=== PATIENT | female | born 1955 | race Caucasian/White ===

== ENCOUNTER → 2017-06-18 07:45 | Outpatient (CLI) | payer BC, SELFPAY ==
[2017-06-18 09:04] LABS: Absolute Lymphocyte Count 3.01 X10^3/ul (0.83-4.51); Absolute Neutrophil Count 3.2 X10^3/uL (2.0-7.7); Basophil# 0.04 X10^3/uL; Basophil% 0.6 % (0-1); Eosinophil# 0.12 X10^3/uL; Eosinophils% 1.7 % (0-5); Hematocrit 43.6 % (37-47); Hemoglobin 14.1 g/dl (12.0-15.0); Lymphocyte # 3.01 X10^3/ul (4.0); Lymphocyte % 42.9 % (19-41); Mean Corp Hgb Conc 32.3 g/gl (32-36); Mean Corpuscular Hgb 29.5 pg (27.0-32.0); Mean Corpuscular Volume 91.2 fL (81-99); Mean Platelet Vol. 11.5 fl (6.2-12.0); Monocyte# 0.64 X10^3/uL; Monocyte% 9.1 % (0-10); Neutrophil # 3.19 X10^3/uL (2.7-7.7); Neutrophil % 45.4 % (47-70); Platelet Count 193 K/mm3 (150-450); RBC Distribution Width SD 42.5 fl (35.1-43.9); Red Blood Count 4.78 M/mm3 (4.2-5.4)
[2017-06-18 09:05] LABS: POSITIVE COUNT NO; POSITIVE DIFFERENTIAL NO; POSITIVE MORPHOLOGY NO
[2017-06-18 09:29] LABS: ALB/GLOB Ratio 1.4 RATIO (0.9-2.4); AST(SGOT) 21 U/L (15-37); Alanine Aminotransfer ALT/SGPT 38 U/L (13-56); Albumin, Serum 3.7 g/dL (3.2-5.0); Alkaline Phosphatase 111 U/L (45-117); Anion Gap 8 (5-15); BUN 19 mg/dL (7-18); Calcium,Total 8.5 mg/dL (8.5-10.1); Chloride 110 mmol/L (98-107); Creatinine, Serum 0.76 mg/dL (0.55-1.02); EST Glomerular Filtration Rate 82 mL/min (>60); Est Glom Filt Rate - Afr Amer 100 mL/min (>60); Globulin 2.7 g/dL (2.2-4.2); Glucose 127 mg/dL (74-106); Potassium 4.2 mmol/L (3.5-5.1); Protein, Total 6.4 g/dL (6.4-8.2); Sodium Level 146 mmol/L (136-145)
== END ==
PROVIDERS: Family Provider Family Medicine; PCP Family Medicine; Visit Provider Internal Medicine Rheumatology
DX: M06.4 Inflammatory polyarthropathy (principal); M15.9 Polyosteoarthritis, unspecified; M70.62 Trochanteric bursitis, left hip; M79.7 Fibromyalgia; K76.0 Fatty (change of) liver, not elsewhere classified; Z79.899 Other long term (current) drug therapy
CPT/HCPCS: 36415; 80053; 85025

== ENCOUNTER → 2017-08-19 13:26 | Outpatient (CLI) | payer BC, SELFPAY ==
[2017-08-19 13:56] LABS: Hematocrit 43.8 % (37-47); Hemoglobin 14.4 g/dl (12.0-15.0); Mean Corp Hgb Conc 32.9 g/gl (32-36); Mean Corpuscular Volume 91.3 fL (81-99); Mean Platelet Vol. 11.1 fl (6.2-12.0); Platelet Count 222 K/mm3 (150-450); RBC Distribution Width CV 13.5 % (11.6-14.6); RBC Distribution Width SD 44.4 fl (35.1-43.9); White Blood Count 9.9 K/mm3 (4.4-11.0)
[2017-08-19 13:58] LABS: Scan Indicated on CBC? Y/N NO
[2017-08-19 14:42] LABS: ALB/GLOB Ratio 1.3 RATIO (0.9-2.4); AST(SGOT) 21 U/L (15-37); Alanine Aminotransfer ALT/SGPT 41 U/L (13-56); Albumin, Serum 3.9 g/dL (3.2-5.0); Alkaline Phosphatase 109 U/L (45-117); Anion Gap 6 (5-15); BUN 16 mg/dL (7-18); BUN/Creat Ratio 18.2 RATIO (10-20); Chloride 107 mmol/L (98-107); Creatinine, Serum 0.88 mg/dL (0.55-1.02); EST Glomerular Filtration Rate 70 mL/min (>60); Est Glom Filt Rate - Afr Amer 84 mL/min (>60); Globulin 3.1 g/dL (2.2-4.2); Glucose 97 mg/dL (74-106); Magnesium 2.1 mg/dL (1.6-2.6); Phosphorus 3.4 mg/dL (2.5-4.9); Potassium 4.3 mmol/L (3.5-5.1); Sodium Level 143 mmol/L (136-145)
== END ==
PROVIDERS: Family Provider Family Medicine; PCP Family Medicine; Visit Provider Nurse Practitioner Acute Care
DX: G62.9 Polyneuropathy, unspecified (principal); Z79.899 Other long term (current) drug therapy
CPT/HCPCS: 36415; 80053; 83735; 84100; 85027

== ENCOUNTER → 2017-09-22 14:08 | Outpatient (CLI) | payer BC, SELFPAY | PROVIDERS: Family Provider Family Medicine; PCP Family Medicine; Visit Provider Nurse Practitioner Acute Care | DX: G47.33 Obstructive sleep apnea (adult) (pediatric) (principal) | CPT/HCPCS: 98960; G0463 ==

== ENCOUNTER → 2017-09-28 12:38 | Outpatient (CLI) | payer BC, SELFPAY ==
--- NOTE | 2017-09-28 12:40 | RAD_ITS ---
STUDY: X-RAY - ABDOMEN/PELVIS REASON FOR EXAM: Female, 62 years old. Left kidney stone TECHNIQUE: Single AP view of the abdomen / pelvis. COMPARISON: November 17, 2016 FINDINGS: Normal visualized lung bases. Degenerative findings of the symphysis pubis. There is a moderate amount of colonic fecal material. There is no demonstrated free abdominal air. The visualized liver, spleen and kidneys are grossly normal in size and morphology. Normal soft tissue structures. There are diffuse degenerative changes of the visualized lumbar spine. RAD/Abdomen Single View IMPRESSION: Constipation. NO visualized renal calculi. Electronically Signed: Bebeto Bose MD at 17:17 EDT , Service support ,
--- NOTE | 2017-09-28 14:05 | CT_ITS ---
STUDY: CT ABDOMEN AND PELVIS WITHOUT CONTRAST REASON FOR EXAM: Female, 62 years old. Left flank pain. RADIATION DOSAGE (If Supplied By Facility): CTDIvol = ( 14.77 ) mGy, DLP = ( 783.64 ) mGycm TECHNIQUE: Transaxial images were obtained from the dome of the diaphragm to the symphysis pubis without oral contrast, and without intravenous contrast. Sagittal and coronal images were reconstructed. Individualized dose optimization techniques were used for this CT. COMPARISON: Comparison is made with prior study dated May 15, 2016 and November 10, 2014. FINDINGS: The visualized lung bases are unremarkable. The visualized portions of the heart are within normal limits. There is decreased attenuation of the liver consistent with steatosis. There is a 1.5 cm x 2.6 cm well-defined cystic structure in the midportion of the right lobe of the liver. This is unchanged. Normal gallbladder and extrahepatic biliary system. Normal spleen. Normal pancreas. Normal bilateral adrenal glands. Normal right kidney. Normal left kidney. There is a small hiatal hernia. Normal small intestine. There are multiple colonic diverticula consistent with diverticulosis. The appendix is visualized and appears normal. There is scattered atherosclerotic calcification of the abdominal aorta, without a demonstrated aneurysm. Normal inferior vena cava. Normal retroperitoneum. Normal urinary bladder. There is absence of the uterus consistent with a prior hysterectomy. Normal abdominal wall. There are diffuse degenerative changes of the visualized lumbar spine. CT/Abdomen/Pelvis without Cont IMPRESSION: Fatty infiltration of the liver. Stable hepatic cyst. Sigmoid diverticulosis. No evidence of obstructive uropathy. Electronically Signed: Moreno Lu MD at 15:32 EDT Tel [phone], Service support ,
== END ==
PROVIDERS: Family Provider Family Medicine; PCP Family Medicine; Visit Provider Urology
DX: N20.0 Calculus of kidney (principal); R10.9 Unspecified abdominal pain
CPT/HCPCS: 74018; 74176

== ENCOUNTER → 2017-10-19 15:48 | Outpatient (CLI) | payer BC, SELFPAY | PROVIDERS: Family Provider Family Medicine; PCP Family Medicine; Visit Provider Family Medicine | DX: Z00.00 Encounter for general adult medical examination without abnormal findings (principal) ==

== ENCOUNTER → 2017-11-13 09:40 | Outpatient (CLI) | payer BC, SELFPAY ==
[2017-11-13 11:35] LABS: AST(SGOT) 18 U/L (15-37); Alanine Aminotransfer ALT/SGPT 37 U/L (13-56); Cholesterol 125 mg/dL (200); High Density Lipoprotein 35 mg/dL; Triglycerides 227 mg/dL; Very Low Density Lipoprotein 45 mg/dL (5-40)
== END ==
PROVIDERS: Family Provider Family Medicine; PCP Family Medicine; Visit Provider Family Medicine
DX: E78.5 Hyperlipidemia, unspecified (principal)
CPT/HCPCS: 36415; 80061; 84450; 84460

== ENCOUNTER → 2017-12-16 13:55 | Outpatient (CLI) | payer BC, SELFPAY ==
[2017-12-16 15:40] LABS: Absolute Lymphocyte Count 3.13 X10^3/ul (0.83-4.51); Absolute Neutrophil Count 4.9 X10^3/uL (2.0-7.7); Basophil# 0.02 X10^3/uL; Basophil% 0.2 % (0-1); Eosinophil# 0.18 X10^3/uL; Hematocrit 43.5 % (37-47); Hemoglobin 14.6 g/dl (12.0-15.0); Lymphocyte # 3.13 X10^3/ul (4.0); Lymphocyte % 35.3 % (19-41); Mean Corp Hgb Conc 33.6 g/gl (32-36); Mean Corpuscular Hgb 30.9 pg (27.0-32.0); Mean Corpuscular Volume 92.2 fL (81-99); Mean Platelet Vol. 11.3 fl (6.2-12.0); Monocyte# 0.65 X10^3/uL; Monocyte% 7.3 % (0-10); Neutrophil # 4.86 X10^3/uL (2.7-7.7); Platelet Count 251 K/mm3 (150-450); RBC Distribution Width CV 13.1 % (11.6-14.6); RBC Distribution Width SD 43.2 fl (35.1-43.9); Red Blood Count 4.72 M/mm3 (4.2-5.4); White Blood Count 8.9 K/mm3 (4.4-11.0)
[2017-12-16 15:55] LABS: POSITIVE COUNT NO; POSITIVE DIFFERENTIAL NO; POSITIVE MORPHOLOGY NO
[2017-12-16 15:56] LABS: Albumin, Serum 3.5 g/dL (3.2-5.0); BUN 18 mg/dL (7-18); BUN/Creat Ratio 24.9 RATIO (10-20); Creatinine, Serum 0.72 mg/dL (0.55-1.02); EST Glomerular Filtration Rate 87 mL/min (>60); Est Glom Filt Rate - Afr Amer 105 mL/min (>60); Glucose 146 mg/dL (74-106); Protein, Total 6.6 g/dL (6.4-8.2)
[2017-12-16 15:57] LABS: ALB/GLOB Ratio 1.1 RATIO (0.9-2.4); AST(SGOT) 33 U/L (15-37); Alanine Aminotransfer ALT/SGPT 54 U/L (13-56); Alkaline Phosphatase 113 U/L (45-117); Anion Gap 7 (5-15); Calcium,Total 8.1 mg/dL (8.5-10.1); Chloride 106 mmol/L (98-107); Globulin 3.1 g/dL (2.2-4.2); Potassium 3.9 mmol/L (3.5-5.1); Sodium Level 142 mmol/L (136-145)
== END ==
PROVIDERS: Family Provider Family Medicine; PCP Family Medicine; Referring Provider Internal Medicine Rheumatology; Visit Provider Internal Medicine Rheumatology
DX: M06.4 Inflammatory polyarthropathy (principal); M70.62 Trochanteric bursitis, left hip; M15.9 Polyosteoarthritis, unspecified; K76.0 Fatty (change of) liver, not elsewhere classified; E78.5 Hyperlipidemia, unspecified; G43.809 Other migraine, not intractable, without status migrainosus; M79.7 Fibromyalgia; F32.89 Other specified depressive episodes; F41.8 Other specified anxiety disorders
CPT/HCPCS: 36415; 80053; 85025

== ENCOUNTER → 2018-01-07 16:17 | Outpatient (CLI) | payer BC, SELFPAY ==
--- NOTE | 2018-01-07 16:19 | BI_ITS ---
MAMMOGRAPHY - BILATERAL SCREENING REASON FOR EXAM: Female, 62 years old. Routine annual screening examination. PERTINENT HISTORY: Non-contributory. TECHNIQUE: Digital bilateral breast dejon (3D mammographic acquisition) in the CC and MLO projections. 2-D mediolateral oblique (MLO) and craniocaudad (CC) views of both breasts were obtained. CAD: Full Field Digital Mammography with Computer Added Detection was performed. COMPARISON: Comparison is made with prior study dated September 19, 2016. FINDINGS: Breast Composition: There are scattered areas of fibroglandular density. There are no dominant masses or suspicious calcifications. Stable small bilateral axillary lymph nodes. No other significant abnormalities are identified. There has been no significant change since the prior study. BI/SCREENING MAMM (CAD), BILAT IMPRESSION: Stable bilateral screening mammogram. Yearly follow-up mammogram recommended. (A) ASSESSMENT CATEGORY: BIRADS Category 2: Benign. A letter regarding these results will be sent to the patient by the facility within 30 days. Approximately 10% of breast cancers are not detected by mammography. A normal mammogram should not delay biopsy of a clinically suspicious abnormality. [id number] Electronically Signed: Moreno Lu MD at 8:03 EST Tel [phone], Service support ,
== END ==
PROVIDERS: Family Provider Family Medicine; PCP Family Medicine; Referring Provider Family Medicine; Visit Provider Family Medicine
DX: Z12.31 Encounter for screening mammogram for malignant neoplasm of breast (principal)
CPT/HCPCS: 77063; 77067

== ENCOUNTER → 2018-05-24 07:33 | Outpatient (CLI) | payer BC, SELFPAY ==
[2018-05-24 09:42] LABS: Absolute Lymphocyte Count 3.51 X10^3/ul (0.83-4.51); Absolute Neutrophil Count 3.7 X10^3/uL (2.0-7.7); Basophil# 0.02 X10^3/uL; Basophil% 0.2 % (0-1); Eosinophil# 0.12 X10^3/uL; Eosinophils% 1.5 % (0-5); Hematocrit 44.3 % (37-47); Hemoglobin 14.2 g/dl (12.0-15.0); Lymphocyte # 3.51 X10^3/ul (4.0); Lymphocyte % 43.7 % (19-41); Mean Corp Hgb Conc 32.1 g/gl (32-36); Mean Corpuscular Hgb 29.7 pg (27.0-32.0); Mean Corpuscular Volume 92.7 fL (81-99); Mean Platelet Vol. 11.2 fl (6.2-12.0); Monocyte# 0.68 X10^3/uL; Monocyte% 8.5 % (0-10); Platelet Count 240 K/mm3 (150-450); RBC Distribution Width CV 12.9 % (11.6-14.6); RBC Distribution Width SD 43.4 fl (35.1-43.9); Red Blood Count 4.78 M/mm3 (4.2-5.4)
[2018-05-24 09:43] LABS: POSITIVE COUNT NO; POSITIVE DIFFERENTIAL NO; POSITIVE MORPHOLOGY NO
[2018-05-24 10:01] LABS: ALB/GLOB Ratio 1.4 RATIO (0.9-2.4); AST(SGOT) 18 U/L (15-37); Alanine Aminotransfer ALT/SGPT 34 U/L (13-56); Albumin, Serum 3.7 g/dL (3.2-5.0); Alkaline Phosphatase 112 U/L (45-117); Anion Gap 7 (5-15); BUN 17 mg/dL (7-18); BUN/Creat Ratio 21.4 RATIO (10-20); Calcium,Total 8.8 mg/dL (8.5-10.1); Chloride 109 mmol/L (98-107); EST Glomerular Filtration Rate 78 mL/min (>60); Est Glom Filt Rate - Afr Amer 94 mL/min (>60); Globulin 2.7 g/dL (2.2-4.2); Glucose 126 mg/dL (74-106); Protein, Total 6.4 g/dL (6.4-8.2); Sodium Level 143 mmol/L (136-145)
== END ==
PROVIDERS: Family Provider Family Medicine; PCP Family Medicine; Referring Provider Internal Medicine Rheumatology; Visit Provider Internal Medicine Rheumatology
DX: M06.4 Inflammatory polyarthropathy (principal); M15.9 Polyosteoarthritis, unspecified; M70.62 Trochanteric bursitis, left hip; Y93.9 Activity, unspecified; K76.0 Fatty (change of) liver, not elsewhere classified; E78.5 Hyperlipidemia, unspecified; M79.7 Fibromyalgia; G43.809 Other migraine, not intractable, without status migrainosus; F32.89 Other specified depressive episodes; F41.8 Other specified anxiety disorders; Z79.899 Other long term (current) drug therapy
CPT/HCPCS: 36415; 80053; 85025

== ENCOUNTER → 2018-12-03 08:31 | Outpatient (CLI) | payer BC, SELFPAY ==
[2018-12-03 10:18] LABS: Absolute Lymphocyte Count 3.26 X10^3/uL (0.83-4.51); Absolute Neutrophil Count 4.2 X10^3/uL (2.0-7.7); Basophil# 0.05 X10^3/uL; Basophil% 0.6 % (0-1); Eosinophil# 0.12 X10^3/uL; Eosinophils% 1.5 % (0-5); Hematocrit 45.9 % (37-47); Hemoglobin 14.8 g/dL (12.0-15.0); Lymphocyte # 3.26 X10^3/ul (4.0); Lymphocyte % 39.6 % (19-41); Mean Corp Hgb Conc 32.2 g/dL (32-36); Mean Corpuscular Volume 92.9 fL (81-99); Mean Platelet Vol. 11.3 fl (6.2-12.0); Monocyte# 0.62 X10^3/uL; Monocyte% 7.5 % (0-10); NRBC Flagged by Analyzer 0 % (0-5); Neutrophil # 4.16 X10^3/uL (2.7-7.7); Neutrophil % 50.4 % (47-70); Platelet Count 241 K/mm3 (150-450); RBC Distribution Width CV 12.5 % (11.6-14.6); RBC Distribution Width SD 42.5 fl (35.1-43.9); Red Blood Count 4.94 M/mm3 (4.2-5.4); White Blood Count 8.2 K/mm3 (4.4-11.0)
[2018-12-03 10:45] LABS: ALB/GLOB Ratio 1.4 RATIO (0.9-2.4); AST(SGOT) 19 U/L (15-37); Alanine Aminotransfer ALT/SGPT 34 U/L (13-56); Albumin, Serum 3.9 g/dL (3.2-5.0); Alkaline Phosphatase 106 U/L (45-117); Anion Gap 7 (5-15); BUN 13 mg/dL (7-18); Calcium,Total 8.8 mg/dL (8.5-10.1); Chloride 108 mmol/L (98-107); Creatinine, Serum 0.87 mg/dL (0.55-1.02); EST Glomerular Filtration Rate 70 mL/min (>60); Est Glom Filt Rate - Afr Amer 85 mL/min (>60); Globulin 2.7 g/dL (2.2-4.2); Glucose 111 mg/dL (74-106); Protein, Total 6.6 g/dL (6.4-8.2); Sodium Level 145 mmol/L (136-145)
== END ==
PROVIDERS: Family Provider Family Medicine; PCP Family Medicine; Referring Provider Internal Medicine Rheumatology; Visit Provider Internal Medicine Rheumatology
DX: M06.4 Inflammatory polyarthropathy (principal); M79.7 Fibromyalgia; M15.9 Polyosteoarthritis, unspecified; M70.62 Trochanteric bursitis, left hip; K76.0 Fatty (change of) liver, not elsewhere classified; F32.89 Other specified depressive episodes; F41.8 Other specified anxiety disorders; E78.5 Hyperlipidemia, unspecified; G43.809 Other migraine, not intractable, without status migrainosus; Z79.899 Other long term (current) drug therapy
CPT/HCPCS: 36415; 80053; 85025

== ENCOUNTER → 2019-02-09 07:40 | Outpatient (CLI) | payer BC, SELFPAY ==
--- NOTE | 2019-02-09 07:43 | BI_ITS ---
MAMMOGRAPHY - BILATERAL SCREENING REASON FOR EXAM: Female, 63 years old. Routine annual screening examination. PERTINENT HISTORY: Non-contributory. TECHNIQUE: Digital bilateral breast ondina (3D mammographic acquisition) in the CC and MLO projections. 2-D mediolateral oblique (MLO) and craniocaudad (CC) views of both breasts were obtained. CAD: Full Field Digital Mammography with Computer Added Detection was performed. COMPARISON: Comparison is made with prior study dated January 07, 2018 and September 19, 2016. FINDINGS: Breast Composition: There are scattered areas of fibroglandular density. There are no dominant masses or suspicious calcifications. Stable asymmetry of breast tissue where more breast tissue is seen in the upper outer quadrant of the right breast as compared to the left side. This is unchanged. Stable small benign-appearing bilateral axillary lymph nodes. No other significant abnormalities are identified. There has been no significant change since the prior study. BI/SCREEN MAMM (CAD) W/ONDINA BILAT IMPRESSION: Stable bilateral screening mammogram. Yearly follow-up mammogram recommended. (A) ASSESSMENT CATEGORY: BIRADS Category 2: Benign. A letter regarding these results will be sent to the patient by the facility within 30 days. Approximately 10% of breast cancers are not detected by mammography. A normal mammogram should not delay biopsy of a clinically suspicious abnormality. [id number] Electronically Signed: Moreno Lu, at 10:22 EST , Service support ,
== END ==
PROVIDERS: Family Provider Family Medicine; PCP Family Medicine; Referring Provider Family Medicine; Visit Provider Family Medicine
DX: Z12.31 Encounter for screening mammogram for malignant neoplasm of breast (principal)
CPT/HCPCS: 77063; 77067

== ENCOUNTER → 2019-05-25 | Outpatient (CLI) | payer BC, SELFPAY ==
[2019-05-25 11:07] LABS: Absolute Lymphocyte Count 3.29 X10^3/uL (0.83-4.51); Absolute Neutrophil Count 4.4 X10^3/uL (2.0-7.7); Basophil# 0.05 X10^3/uL; Basophil% 0.6 % (0-1); Eosinophil# 0.11 X10^3/uL; Eosinophils% 1.3 % (0-5); Hematocrit 48.3 % (37-47); Hemoglobin 15.7 g/dL (12.0-15.0); Lymphocyte # 3.29 X10^3/ul (4.0); Lymphocyte % 38.5 % (19-41); Mean Corp Hgb Conc 32.5 g/dL (32-36); Mean Corpuscular Volume 92.2 fL (81-99); Monocyte# 0.73 X10^3/uL; Monocyte% 8.5 % (0-10); NRBC Flagged by Analyzer 0 % (0-5); Neutrophil # 4.35 X10^3/uL (2.7-7.7); Neutrophil % 50.9 % (47-70); Platelet Count 265 K/mm3 (150-450); RBC Distribution Width CV 12.5 % (11.6-14.6); RBC Distribution Width SD 42.3 fl (35.1-43.9); Red Blood Count 5.24 M/mm3 (4.2-5.4); White Blood Count 8.6 K/mm3 (4.4-11.0)
[2019-05-25 11:39] LABS: ALB/GLOB Ratio 1.3 RATIO (0.9-2.4); AST(SGOT) 19 U/L (15-37); Alanine Aminotransfer ALT/SGPT 41 U/L (13-56); Albumin, Serum 3.8 g/dL (3.2-5.0); Alkaline Phosphatase 107 U/L (45-117); Anion Gap 3 (5-15); BUN 16 mg/dL (7-18); BUN/Creat Ratio 20.8 RATIO (10-20); Calcium,Total 8.9 mg/dL (8.5-10.1); Chloride 109 mmol/L (98-107); Creatinine, Serum 0.77 mg/dL (0.55-1.02); EST Glomerular Filtration Rate 81 mL/min (>60); Est Glom Filt Rate - Afr Amer 98 mL/min (>60); Glucose 100 mg/dL (74-106); Potassium 4.8 mmol/L (3.5-5.1); Protein, Total 6.8 g/dL (6.4-8.2); Sodium Level 143 mmol/L (136-145)
== END | disposition home or self-care (01) ==
LOC: LABSPEC 10:57
PROVIDERS: PCP Family Medicine; Referring Provider Internal Medicine Rheumatology; Visit Provider Internal Medicine Rheumatology
DX: F32.89 Other specified depressive episodes (principal); E78.5 Hyperlipidemia, unspecified; G43.809 Other migraine, not intractable, without status migrainosus; F41.8 Other specified anxiety disorders
CPT/HCPCS: 80053; 85025

== ENCOUNTER → 2020-01-07 10:57 | Outpatient (CLI) | payer BC, SELFPAY ==
[2020-01-07 12:02] LABS: Absolute Lymphocyte Count 4.01 X10^3/uL (0.83-4.51); Absolute Neutrophil Count 5.1 X10^3/uL (2.0-7.7); Basophil# 0.05 X10^3/uL; Basophil% 0.5 % (0-1); Hematocrit 48.1 % (37-47); Hemoglobin 15.3 g/dL (12.0-15.0); Lymphocyte # 4.01 X10^3/ul (4.0); Lymphocyte % 39.7 % (19-41); Mean Corp Hgb Conc 31.8 g/dL (32-36); Mean Corpuscular Hgb 29.8 pg (27.0-32.0); Mean Corpuscular Volume 93.6 fL (81-99); Monocyte# 0.79 X10^3/uL; Monocyte% 7.8 % (0-10); NRBC Flagged by Analyzer 0 % (0-5); Neutrophil # 5.13 X10^3/uL (2.7-7.7); Neutrophil % 50.7 % (47-70); Platelet Count 272 K/mm3 (150-450); RBC Distribution Width CV 12.3 % (11.6-14.6); RBC Distribution Width SD 42.6 fl (35.1-43.9); Red Blood Count 5.14 M/mm3 (4.2-5.4); White Blood Count 10.1 K/mm3 (4.4-11.0)
[2020-01-07 12:24] LABS: ALB/GLOB Ratio 1.3 RATIO (0.9-2.4); AST(SGOT) 13 U/L (15-37); Alanine Aminotransfer ALT/SGPT 26 U/L (13-56); Albumin, Serum 3.7 g/dL (3.2-5.0); Alkaline Phosphatase 113 U/L (45-117); Anion Gap 5 (5-15); BUN 13 mg/dL (7-18); BUN/Creat Ratio 15.7 RATIO (10-20); Calcium,Total 8.6 mg/dL (8.5-10.1); Chloride 110 mmol/L (98-107); Creatinine, Serum 0.83 mg/dL (0.55-1.02); EST Glomerular Filtration Rate 74 mL/min (>60); Est Glom Filt Rate - Afr Amer 90 mL/min (>60); Globulin 2.9 g/dL (2.2-4.2); Glucose 94 mg/dL (74-106); Potassium 3.7 mmol/L (3.5-5.1); Protein, Total 6.6 g/dL (6.4-8.2); Sodium Level 143 mmol/L (136-145)
== END ==
PROVIDERS: PCP Family Medicine; Referring Provider Internal Medicine Rheumatology; Visit Provider Internal Medicine Rheumatology
DX: M06.4 Inflammatory polyarthropathy (principal); M79.7 Fibromyalgia; M15.9 Polyosteoarthritis, unspecified; M70.62 Trochanteric bursitis, left hip; K76.0 Fatty (change of) liver, not elsewhere classified; F32.89 Other specified depressive episodes; F41.9 Anxiety disorder, unspecified; E78.5 Hyperlipidemia, unspecified; G43.809 Other migraine, not intractable, without status migrainosus
CPT/HCPCS: 36415; 80053; 85025

== ENCOUNTER → 2020-01-30 15:24 | Outpatient (CLI) | payer BC, SELFPAY ==
[2020-01-30 18:28] LABS: Cholesterol 100 mg/dL (200); High Density Lipoprotein 42 mg/dL; T4 Total, Thyroxin 7.8 ug/dL (4.8-13.9); Thyroid Stim Hormone (TSH) 0.58 uIU/mL (0.358-3.74); Triglycerides 103 mg/dL; Very Low Density Lipoprotein 21 mg/dL (5-40)
== END ==
PROVIDERS: PCP Family Medicine; Referring Provider Family Medicine; Visit Provider Family Medicine
DX: E03.9 Hypothyroidism, unspecified (principal); E78.5 Hyperlipidemia, unspecified; R73.9 Hyperglycemia, unspecified
CPT/HCPCS: 36415; 80061; 84436; 84443

== ENCOUNTER → 2020-02-23 10:28 | Outpatient (CLI) | payer BC, SELFPAY ==
--- NOTE | 2020-02-23 10:30 | BI_ITS ---
MAMMOGRAPHY - BILATERAL SCREENING REASON FOR EXAM: Female, 64 years old. Routine annual screening examination. PERTINENT HISTORY: Non-contributory. TECHNIQUE: Digital bilateral breast ondina (3D mammographic acquisition) in the CC and MLO projections. 2-D mediolateral oblique (MLO) and craniocaudad (CC) views of both breasts were obtained. CAD: Full Field Digital Mammography with Computer Added Detection was performed. COMPARISON: Comparison is made with prior examination dated 02/09/2019 and 01/07/2018. FINDINGS: Breast Composition: There are scattered areas of fibroglandular density. There are no dominant masses or suspicious calcifications. Stable mild asymmetry of breast tissue where more breast tissue is seen in the upper outer quadrant of the right breast as compared to the left side. Stable small benign-appearing bilateral axillary lymph nodes. No other significant abnormalities are identified. BI/SCREEN MAMM (CAD) W/ONDINA BILAT IMPRESSION: Stable bilateral screening mammogram. Yearly follow-up mammogram recommended. (A) ASSESSMENT CATEGORY: BIRADS Category 2: Benign. A letter regarding these results will be sent to the patient by the facility within 30 days. Approximately 10% of breast cancers are not detected by mammography. A normal mammogram should not delay biopsy of a clinically suspicious abnormality. [id number] Electronically Signed: Moreno Lu, at 11:20 EST , Service support ,
--- NOTE | 2020-02-23 11:00 | BD_ITS ---
STUDY: DUAL ENERGY X-RAY ABSORPTIOMETRY / DXA REASON FOR EXAM: Female, 64 years old. Age of Partial Hysterectomy age 31. Pat is 205.9# and 67.25 and quot; a loss of .75 and quot; per pat. PRN inhaler for asthma. Takes a thyroid med. Takes a multi-vit. Patient states last year she had an HRT placed in her hip that she has replaced every 3 months of a cocktail of testosterone, estrogen and progesterone. Exercises moderately. TECHNIQUE: Bone Mineral Density (BMD) measurements of lumbar spine and bilateral hips were obtained. COMPARISON: None. FINDINGS: Lumbar Spine (L1-L4): g/cm2 (1.072) / T-score (-0.8) / Z-score (0.7) Findings are suggestive of normal bone density with a low fracture risk. Left Femur Total: g/cm2 (0.980) / T-score (-0.2) / Z-score (0.9) Left Femoral Neck: g/cm2 (0.899) / T-score (-1.0) / Z-score (0.4) Right Femur Total: g/cm2 (0.911) / T-score (-0.8) / Z-score (0.4) Right Femoral Neck: g/cm2 (0.822) / T-score (-1.7) / Z-score (-0.1) BD/Dexa Bone Density Study IMPRESSION: The patient is considered osteopenic as outlined below according to World Federico Organization (WHO) criteria with a moderate fracture risk. Reference Information: The T-score is the number of standard deviations above or below the standard which is normal for young adults at their peak bone mineral density. The World Health Organization (WHO) interprets the T-scores as follows: Above -1 Normal bone density Between -1 and -2.5 Osteopenia Equal to / or below -2.5 Osteoporosis As a practical clinical guideline, osteopenia may be graded as follows: Mild -1 through -1.5 Moderate -1.6 through -2.0 Severe -2.1 through -2.4 The Z-score is the number of standard deviations above or below age-matched controls. A Z-score of less than -1.5 would be considered abnormal. References: 1. NIH Osteoporosis and Related Bone Diseases www osteo.org 2. International Society for Clinical Densitometry www iscd.org 3. National Osteoporosis Foundation www nof.org Electronically Signed: Moreno Lu, at 12:35 EST , Service support ,
== END ==
PROVIDERS: PCP Family Medicine; Referring Provider Family Medicine; Visit Provider Family Medicine
DX: N95.9 Unspecified menopausal and perimenopausal disorder (principal); Z12.31 Encounter for screening mammogram for malignant neoplasm of breast
CPT/HCPCS: 77063; 77067; 77080

== ENCOUNTER → 2020-05-15 15:40 | Outpatient (CLI) | payer OTHER, SELFPAY ==
--- NOTE | 2020-05-15 16:17 | CT_ITS ---
STUDY: CT ABDOMEN AND PELVIS WITHOUT CONTRAST REASON FOR EXAM: Female, 65 years old. Unspecified abdominal pain. Hematuria. Question urinary calculi. Right flank pain. RADIATION DOSAGE (If Supplied By Facility): CTDIvol = ( 18.77 ) mGy, DLP = ( 886.25 ) mGycm TECHNIQUE: Transaxial images were obtained from the dome of the diaphragm to the symphysis pubis without oral contrast, and without intravenous contrast. Sagittal and coronal images were reconstructed. Individualized dose optimization techniques were used for this CT. COMPARISON: 09/28/2017. FINDINGS: The visualized lung bases are unremarkable. The visualized portions of the heart are within normal limits. Normal liver. Normal gallbladder and extrahepatic biliary system. Normal spleen. Normal pancreas. Normal bilateral adrenal glands. Normal right kidney. Normal right ureter. Normal left kidney. Normal left ureter. Normal visualized stomach. Normal small intestine. Scattered descending and sigmoid diverticuli without acute inflammatory change. The proximal colon is grossly normal There is non-visualization of the appendix. There is diffuse atherosclerotic calcification of the abdominal aorta, without a demonstrated aneurysm. Normal inferior vena cava. Normal retroperitoneum. Normal urinary bladder. Unremarkable vaginal cuff. There are phleboliths and pelvis without lymphadenopathy. No free air or free fluid is seen within the peritoneal cavity. Normal abdominal wall. There are diffuse degenerative changes of the visualized lumbar spine. CT/Abdomen/Pelvis without Cont IMPRESSION: 1. No visualized renal, ureteral or urinary bladder abnormality. 2. Nonvisualization of the cysts seen in the upper right liver on the previous study. 3. Sigmoid diverticulosis without acute inflammatory change. 4. Overall stable findings. Electronically Signed: Chon Ramirez DO at 16:53 EDT Tel [phone], Service support ,
== END ==
PROVIDERS: PCP Family Medicine; Referring Provider Nurse Practitioner Adult Health; Visit Provider Nurse Practitioner Adult Health
DX: R10.9 Unspecified abdominal pain (principal); R31.29 Other microscopic hematuria; Z87.442 Personal history of urinary calculi
CPT/HCPCS: 74176

== ENCOUNTER → 2020-06-25 11:24 | Outpatient (CLI) | payer OTHER, SELFPAY ==
[2020-06-25 12:06] LABS: Absolute Lymphocyte Count 3.25 X10^3/uL (0.83-4.51); Absolute Neutrophil Count 6.5 X10^3/uL (2.0-7.7); Basophil# 0.04 X10^3/uL; Basophil% 0.4 % (0-1); Eosinophil# 0.09 X10^3/uL; Eosinophils% 0.8 % (0-5); Hemoglobin 15.1 g/dL (12.0-15.0); Lymphocyte # 3.25 X10^3/ul (0.83-4.51); Lymphocyte % 30.1 % (19-41); Mean Corp Hgb Conc 32.1 g/dL (32-36); Mean Corpuscular Hgb 29.9 pg (27.0-32.0); Mean Corpuscular Volume 93.1 fL (81-99); Mean Platelet Vol. 11.6 fl (6.2-12.0); Monocyte# 0.91 X10^3/uL; Monocyte% 8.4 % (0-10); NRBC Flagged by Analyzer 0 % (0-5); Neutrophil # 6.46 X10^3/uL (2.7-7.7); Platelet Count 259 K/mm3 (150-450); RBC Distribution Width CV 12.3 % (11.6-14.6); RBC Distribution Width SD 42.5 fl (35.1-43.9); Red Blood Count 5.05 M/mm3 (4.2-5.4); White Blood Count 10.8 K/mm3 (4.4-11.0)
[2020-06-25 12:23] LABS: ALB/GLOB Ratio 1.3 RATIO (0.9-2.4); AST(SGOT) 14 U/L (15-37); Alanine Aminotransfer ALT/SGPT 25 U/L (13-56); Albumin, Serum 3.7 g/dL (3.2-5.0); Alkaline Phosphatase 91 U/L (45-117); Anion Gap 6 (5-15); BUN 12 mg/dL (7-18); BUN/Creat Ratio 14.4 RATIO (10-20); Calcium,Total 8.9 mg/dL (8.5-10.1); Chloride 108 mmol/L (98-107); Creatinine, Serum 0.83 mg/dL (0.55-1.02); EST Glomerular Filtration Rate 73 mL/min (>60); Est Glom Filt Rate - Afr Amer 89 mL/min (>60); Globulin 2.9 g/dL (2.2-4.2); Glucose 82 mg/dL (74-106); Potassium 4.2 mmol/L (3.5-5.1); Protein, Total 6.6 g/dL (6.4-8.2); Sodium Level 142 mmol/L (136-145)
== END ==
PROVIDERS: PCP Family Medicine; Referring Provider Internal Medicine Rheumatology; Visit Provider Internal Medicine Rheumatology
DX: M06.4 Inflammatory polyarthropathy (principal); M79.7 Fibromyalgia; M15.9 Polyosteoarthritis, unspecified; M70.62 Trochanteric bursitis, left hip; K76.0 Fatty (change of) liver, not elsewhere classified; F32.89 Other specified depressive episodes; F41.9 Anxiety disorder, unspecified; E78.5 Hyperlipidemia, unspecified; G43.809 Other migraine, not intractable, without status migrainosus
CPT/HCPCS: 80053; 85025

== ENCOUNTER → 2021-01-14 14:40 | Outpatient (CLI) | payer OTHER, SELFPAY ==
[2021-01-14 16:16] LABS: Absolute Lymphocyte Count 3.11 X10^3/uL (0.83-4.51); Absolute Neutrophil Count 5.6 X10^3/uL (2.0-7.7); Basophil# 0.04 X10^3/uL; Basophil% 0.4 % (0-1); Eosinophil# 0.13 X10^3/uL; Eosinophils% 1.3 % (0-5); Hematocrit 44.8 % (37-47); Hemoglobin 14.6 g/dL (12.0-15.0); Lymphocyte # 3.11 X10^3/ul (0.83-4.51); Mean Corp Hgb Conc 32.6 g/dL (32-36); Mean Corpuscular Hgb 30.3 pg (27.0-32.0); Mean Corpuscular Volume 92.9 fL (81-99); Mean Platelet Vol. 11.7 fl (6.2-12.0); Monocyte# 0.79 X10^3/uL; Monocyte% 8.1 % (0-10); NRBC Flagged by Analyzer 0 % (0-5); Neutrophil % 57.8 % (47-70); Platelet Count 242 K/mm3 (150-450); RBC Distribution Width CV 12.4 % (11.6-14.6); RBC Distribution Width SD 42.8 fl (35.1-43.9); Red Blood Count 4.82 M/mm3 (4.2-5.4); White Blood Count 9.7 K/mm3 (4.4-11.0)
[2021-01-14 17:05] LABS: ALB/GLOB Ratio 1.2 RATIO (0.9-2.4); AST(SGOT) 25 U/L (15-37); Alanine Aminotransfer ALT/SGPT 42 U/L (13-56); Albumin, Serum 3.6 g/dL (3.2-5.0); Alkaline Phosphatase 99 U/L (45-117); Anion Gap 5 (5-15); BUN 16 mg/dL (7-18); BUN/Creat Ratio 19.8 RATIO (10-20); Calcium,Total 8.8 mg/dL (8.5-10.1); Chloride 107 mmol/L (98-107); Creatinine, Serum 0.81 mg/dL (0.55-1.02); EST Glomerular Filtration Rate 76 mL/min (>60); Est Glom Filt Rate - Afr Amer 92 mL/min (>60); Globulin 3.1 g/dL (2.2-4.2); Glucose 85 mg/dL (74-106); Potassium 3.8 mmol/L (3.5-5.1); Protein, Total 6.7 g/dL (6.4-8.2); Sodium Level 139 mmol/L (136-145)
== END ==
PROVIDERS: PCP Family Medicine; Referring Provider Internal Medicine Rheumatology; Visit Provider Internal Medicine Rheumatology
DX: M06.4 Inflammatory polyarthropathy (principal); M79.7 Fibromyalgia; M15.9 Polyosteoarthritis, unspecified; M70.62 Trochanteric bursitis, left hip; K76.0 Fatty (change of) liver, not elsewhere classified; F32.89 Other specified depressive episodes; F41.8 Other specified anxiety disorders; E78.5 Hyperlipidemia, unspecified; G43.809 Other migraine, not intractable, without status migrainosus
CPT/HCPCS: 36415; 80053; 85025

== ENCOUNTER 2021-01-25 00:49 | Emergency (ER) | payer OTHER, SELFPAY ==
[2021-01-25 00:49] VITALS: BP 134/95; PULSE 90; RESP 18; TEMP 37.2; O2SAT 95; BMI 30.1
[2021-01-25 00:58] VITALS: O2SAT 95
--- NOTE | 2021-01-25 01:34 | EDS_ITS ---
HPI History of Present Illness Chief Complaint: Cough Informant: patient Onset/Context/Timing Onset: Weeks (1) Context: Gradual Onset Timing: Continuous Quality: Heavy Location: Head Worsened by: Movement Relieved by: Nothing Narrative Narrative: Patient presents with cough and congestion that has been getting worse over the past week. Patient states that she has been around several family members who recently tested positive for COVID-19. Patient states she did not take a COVID-19 test herself but assumes that she has COVID-19. Patient states she feels heavy in her head. Patient admits to some generalized aching. Patient states her pain is worse with movement. Patient also admits to some increasing fatigue. Patient admits to a cough but denies any sputum production. Patient also admits to sore throat and rhinorrhea. PFSH PFSH Medical History High cholesterol History of kidney stones Hypertension Home Medications atenolol 25 mg PO DAILY 04/15/13 [History Last Taken Unknown] atorvastatin 20 mg PO QHS 04/15/13 [History Last Taken Unknown] tramadol 50 mg PO Q6H PRN PRN 04/15/13 [History Last Taken Unknown] zolmitriptan [Zomig] 5 mg PO X1 04/15/13 [History Last Taken Unknown] ergocalciferol (vitamin D2) [Vitamin D2] 50,000 unit PO QWEEK 01/25/21 [History Last Taken Unknown] pregabalin [Lyrica] 100 mg PO TID 01/25/21 [History Last Taken Unknown] thyroid (pork) [[employer] Thyroid] 60 mg PO DAILY 01/25/21 [History Last Taken Unknown] Allergy/AdvReac Type Severity Reaction Status Date / Time codeine AdvReac Nausea/Vom/ Verified 01/25/21 00:49 Diarrhea Surgical History H/O: hysterectomy History of appendectomy History of carpal tunnel surgery Social History Smoking Status: Never smoker ROS ROS ED Constitutional Constitutional ED: Denies chills or fever(s) Eyes Eyes: Denies blurry vision or change in vision ENT ENT ED: Reports rhinorrhea and sore throat Cardiovascular Cardiovascular: Denies chest pain or palpitations Respiratory/Chest Respiratory/Chest: Reports cough; Denies dyspnea Gastrointestinal Gastrointestinal: Reports nausea and vomiting Genitourinary Genitourinary ED: Denies dysuria or hematuria Musculoskeletal Musculoskeletal: Reports back pain; Denies neck pain Integumentary Denies abscess or rash Neurologic Neurologic: Reports headache(s) and weakness Allergic/Immunologic Allergic/Immunologic ED: Denies mouth swelling or urticaria EXAM Physical Exam Const Vital Signs: 01/25/21 00:49 01/25/21 00:58 01/25/21 01:50 Temperature 98.9 F Temperature Source Axillary Pulse Rate 90 80 Respiratory Rate 18 18 Respiratory Effort Short of Breath Respiratory Depth Normal Respiratory Pattern Normal Blood Pressure 134/95 H 137/67 H Blood Pressure Mean 108 90 Pulse Ox 95 96 Oxygen Delivery Method Room Air Room Air Room Air Positive well nourished and well developed General Appearance ED: well developed HEENT Reports moist mucous membranes Neck supple and no JVD Resp normal respiratory effort Auscultation: rhonchi throughout Cardio regular rate, regular rhythm and no murmurs GI normal to inspection, nondistended, normoactive bowel sounds and non-tender Palpation: soft Extremity normal to inspection General Extremety ED: Negative for edema or tenderness General Extremity: Negative for edema Neuro oriented x3, CN's II-XII intact bilaterally and no sensory deficits noted Sensorium / Orientation: alert Motor Exam: strength 5/5 throughout Psych mental status grossly normal Skin no rashes or lesions noted MDM MDM MDM Narrative Medical decision making narrative: Patient was given 6 puffs of an albuterol inhaler here. CBC was within normal limits. Comprehensive metabolic profile was essentially within normal limits. Lactate was normal. COVID-19 rapid antigen was ordered. Patient refused this. Portable chest x-ray was obtained. There is 1 view. On my interpretation, there are bilateral lower lobe infiltrates consistent with COVID-19 pneumonia. Radiologist also interpreted the x-ray and agrees. Patient was advised of her findings. Since the patient refused her COVID-19 test, she does not meet criteria for monoclonal antibody therapy. Patient was instructed to use the inhaler as needed for cough. Patient was instructed to continue Tylenol and ibuprofen as needed for any aches or fevers. Patient was instructed to follow-up with her primary care physician in 5 to 7 days. Patient understood and was agreeable with the plan. All questions were answered. Lab Data Attestation: I reviewed the patient's lab results. Labs: Laboratory Results - last 24 hr 01/25/21 01/25/21 01/25/21 01:45 01:45 01:45 WBC 6.7 RBC 5.01 Hgb 15.2 H Hct 44.4 MCV 88.6 MCH 30.3 MCHC 34.2 RDW Std Deviation 41.2 RDW Coeff of Dylan 12.6 Plt Count 144 L MPV 11.1 Immature Gran % (Auto) 0.300 Neut % (Auto) 68.5 Lymph % (Auto) 22.6 Sabine % (Auto) 8.2 Eos % (Auto) 0.1 Baso % (Auto) 0.3 Absolute Neuts (auto) 4.6 Absolute Lymphs (auto) 1.52 Nucleated RBC % 0 Sodium 135 L Potassium 4.0 Chloride 104 Carbon Dioxide 23.0 Anion Gap 8 BUN 18 Creatinine 1.00 Estim Creat Clear Calc 57.33 Est GFR (MDRD) Af Amer 72 Est GFR (MDRD) Non-Af 59 L BUN/Creatinine Ratio 18.0 Glucose 109 H Lactic Acid 1.2 Calcium 8.5 Total Bilirubin 0.40 AST 41 H ALT 36 Alkaline Phosphatase 77 Total Protein 6.8 Albumin 3.2 Globulin 3.6 Albumin/Globulin Ratio 0.9 Radiography Chest X-Ray - ED: 1 View, Read by ED Physician, Read by Radiologist, Right Infiltrate and Left Infiltrate Diagnostic Testing: Clinical Impression(s) from Imaging Studies Chest X-Ray 01/25/21 01:55 IMPRESSION: Ill-defined subpleural groundglass opacities are seen more prominent in the lung bases , may represent atypical pneumonia or viral pneumonia (COVID-19 ?). Electronically Signed: Martha Arzola MD at 3:05 EST Tel , Service support , Discharge Plan Triage Chief Complaint: Cough ED Provider: Roger Villa Dx/Rx/DC Orders Clinical Impression: Pneumonia due to COVID-19 virus Instructions: Coronavirus Disease 2019 (COVID-19): Caring for Yourself or Others Prescriptions: No Action atorvastatin 20 MG tablet 20 mg PO QHS RF: 0 atenolol 25 MG tablet 25 mg PO DAILY RF: 0 tramadol 50 MG tablet 50 mg PO Q6H PRN PRN (Reason: Pain) RF: 0 zolmitriptan [Zomig] 5 MG tablet 5 mg PO X1 RF: 0 ergocalciferol (vitamin D2) [Vitamin D2] 1,250 mcg (50,000 unit) capsule 50,000 unit PO QWEEK RF: 0 pregabalin [Lyrica] 100 mg Capsule 100 mg PO TID RF: 0 thyroid (pork) [[employer] Thyroid] 60 mg tablet 60 mg PO DAILY RF: 0 Primary Care Provider: Jen No Referrals: Jen No MD [Primary Care Provider] - 5-7 Days Disposition Disposition: Home, Self Care
[2021-01-25 01:50] VITALS: BP 137/67; PULSE 80; RESP 18; O2SAT 96
[2021-01-25 01:54] LABS: Absolute Lymphocyte Count 1.52 X10^3/uL (0.83-4.51); Absolute Neutrophil Count 4.6 X10^3/uL (2.0-7.7); Basophil# 0.02 X10^3/uL; Basophil% 0.3 % (0-1); Eosinophil# 0.01 X10^3/uL; Eosinophils% 0.1 % (0-5); Hematocrit 44.4 % (37-47); Hemoglobin 15.2 g/dL (12.0-15.0); Lymphocyte # 1.52 X10^3/ul (0.83-4.51); Lymphocyte % 22.6 % (19-41); Mean Corp Hgb Conc 34.2 g/dL (32-36); Mean Corpuscular Hgb 30.3 pg (27.0-32.0); Mean Corpuscular Volume 88.6 fL (81-99); Mean Platelet Vol. 11.1 fl (6.2-12.0); Monocyte# 0.55 X10^3/uL; Monocyte% 8.2 % (0-10); NRBC Flagged by Analyzer 0 % (0-5); Neutrophil # 4.62 X10^3/uL (2.7-7.7); Neutrophil % 68.5 % (47-70); Platelet Count 144 K/mm3 (150-450); RBC Distribution Width CV 12.6 % (11.6-14.6); RBC Distribution Width SD 41.2 fl (35.1-43.9); Red Blood Count 5.01 M/mm3 (4.2-5.4); White Blood Count 6.7 K/mm3 (4.4-11.0)
--- NOTE | 2021-01-25 01:55 | RAD_ITS ---
STUDY: X-RAY CHEST REASON FOR EXAM: Female, 65 years old. cough TECHNIQUE: Single AP portable view of the chest. COMPARISON: None. FINDINGS: Ill-defined subpleural groundglass opacities are seen more prominent in the lung bases , may represent atypical pneumonia or viral pneumonia (COVID-19 ?). There is no demonstrated pleural abnormality. Normal size heart. Normal mediastinum and philly. Normal visualized pulmonary arteries. Normal visualized aortic arch and descending thoracic aorta. Normal visualized thoracic spine. Normal visualized ribs, clavicles, and shoulders. There is no demonstrated abnormality of the visualized soft tissue structures of the upper abdomen. RAD/Chest 1 View (Portable) IMPRESSION: Ill-defined subpleural groundglass opacities are seen more prominent in the lung bases , may represent atypical pneumonia or viral pneumonia (COVID-19 ?). Electronically Signed: Martha Arzola MD at 3:05 EST Tel , Service support ,
--- NOTE | 2021-01-25 02:00 | ED.RN ---
PATIENT REFUSED COVID SWAB. DR. LEUNG NOTIFIED.
[2021-01-25 02:12] LABS: ALB/GLOB Ratio 0.9 RATIO (0.9-2.4); AST(SGOT) 41 U/L (15-37); Alanine Aminotransfer ALT/SGPT 36 U/L (13-56); Albumin, Serum 3.2 g/dL (3.2-5.0); Alkaline Phosphatase 77 U/L (45-117); Anion Gap 8 (5-15); BUN 18 mg/dL (7-18); Calcium,Total 8.5 mg/dL (8.5-10.1); Chloride 104 mmol/L (98-107); EST Glomerular Filtration Rate 59 mL/min (>60); Est Glom Filt Rate - Afr Amer 72 mL/min (>60); Estimated Creatinine Clearance 57.33 ml/min; Globulin 3.6 g/dL (2.2-4.2); Glucose 109 mg/dL (74-106); Protein, Total 6.8 g/dL (6.4-8.2); Sodium Level 135 mmol/L (136-145)
[2021-01-25 02:18] LABS: Lactic Acid 1.2 mmol/L (0.4-1.9)
[2021-01-25 03:42] VITALS: BP 106/57; PULSE 77; RESP 19; O2SAT 92
== END 2021-01-25 03:47 | disposition home or self-care (01) ==
PROVIDERS: Emergency Provider Emergency Medicine; PCP Family Medicine
DX: U07.1 COVID-19 (principal); J12.82 Pneumonia due to coronavirus disease 2019; I10 Essential (primary) hypertension; E78.00 Pure hypercholesterolemia, unspecified; Z79.899 Other long term (current) drug therapy
CPT/HCPCS: 71045; 80053; 83605; 85025; 99285; A4216

== ENCOUNTER 2021-01-29 12:36 | Inpatient (IN) | payer OTHER, SELFPAY ==
[2021-01-29] VITALS (9 sets, daily range): BP systolic 128–150; BP diastolic 67–86; PULSE 89–113; RESP 16–36; TEMP 35.9–36.9; O2SAT 84–96; BMI 29.3; BMI 29.9
--- NOTE | 2021-01-29 14:13 | EKG12_ITS ---
Test Reason : Blood Pressure : / mmHG Vent. Rate : 096 BPM Atrial Rate : 096 BPM P-R Int : 120 ms QRS Dur : 090 ms QT Int : 360 ms P-R-T Axes : 053 070 027 degrees QTc Int : 454 ms Normal sinus rhythm Normal ECG When compared with ECG of 19-JUL-2012 08:58, Nonspecific T wave abnormality now evident in Inferior leads T wave inversion no longer evident in Anterior leads Confirmed by CURTIS LARA, BAILEY ([id number]), general expeditor FRANCINE DEWEY ([id number]) on 02/04/2021 9:53:25 AM Referred By: SANTIAGO Confirmed By:FAIZAN ACEVEDO MD
--- NOTE | 2021-01-29 14:32 | RAD_ITS ---
STUDY: X-RAY CHEST REASON FOR EXAM: Female, 65 years old. Cough TECHNIQUE: Single AP portable view of the chest. COMPARISON: Comparison is made with prior study dated 01/25/2021. FINDINGS: EKG electrodes are seen. Since prior study, there has been a progression of bilateral pulmonary infiltrates worse at the left lung base. There is no demonstrated pleural abnormality. Normal size heart. Normal mediastinum and philly. Normal visualized pulmonary arteries. There is atherosclerotic tortuosity of the aortic arch and descending thoracic aorta. Normal visualized thoracic spine. There is degenerative osteoarthritis of the bilateral shoulders. There is no demonstrated abnormality of the visualized soft tissue structures of the upper abdomen. RAD/Chest 1 View (Portable) IMPRESSION: Progressive bilateral pulmonary infiltrates worse at the left lung base. Electronically Signed: Moreno Lu MD at 14:54 EST , Service support ,
--- NOTE | 2021-01-29 14:43 | ED.VIS.DYS ---
HPI History of Present Illness Chief Complaint: Shortness of Breath Detail of Chief Complaint: Told on Thursday she had Covid pneumonia Informant: patient and family Onset/Context/Timing Onset: Weeks (Onset last January 21) Context: sudden Timing: Continuous Quality: Positive for Dyspnea on exertion and Wheezing; Negative for Orthopnea and PND Current Severity: Moderate Maximum Severity: Severe Worsened by: Exertion and Coughing Relieved by: Nothing Associated Symptoms cough, rhinorrhea, post nasal drip, sore throat, sweats and clear sputum; Negative for ear pain or fever Chest Pain: Positive for None Narrative Narrative: Patient is a 65-year-old woman with history of rheumatoid arthritis on Plaquenil, neuropathy, hypothyroidism, hypertension and hypercholesterolemia who presents because of a pulse ox of 79% at home walking to the car. She refused Covid test last week. She denies history of smoking. She denies history of asthma. She does report bifrontal headache. She denies photophobia, change in vision or blurred vision. Denies ringing ears decreased hearing. She does report rhinorrhea, congestion and postnasal drainage. She does report sore throat. She does have a cough which is productive of clear sputum. She denies chest discomfort. Denies shortness of breath at rest and increase shortness of breath with minimal activity. She does report nausea without vomiting and does report diarrhea. She has not noted blood or mucus in her diarrhea. She denies dysuria, frequency, urgency or hematuria. She does report myalgias and arthralgias. She appears tanned and states she was in the [facility] January 05 through January 12. She denies orthostatic symptoms. She did denies night sweats. She has had weight loss and decreased appetite. PE Risk Factors: Positive for Recent travel; Negative for Cancer, OCP + Smoking + > 35, Prior DVT or PE, Recent immobilization and Recent surgery Prior similar symptoms: Yes Recent Illness/Hospitalization: Yes PFSH PFSH Medical History High cholesterol History of kidney stones Hypertension Non-smoker Home Medications atenolol 25 mg PO DAILY 04/15/13 [History Last Taken Unknown] atorvastatin 20 mg PO QHS 04/15/13 [History Last Taken Unknown] tramadol 50 mg PO Q6H PRN PRN 04/15/13 [History Last Taken Unknown] zolmitriptan [Zomig] 5 mg PO DAILY PRN PRN 04/15/13 [History Last Taken Unknown] ergocalciferol (vitamin D2) [Vitamin D2] 50,000 unit PO QWEEK 01/25/21 [History Last Taken Unknown] pregabalin [Lyrica] 100 mg PO TID 01/25/21 [History Last Taken Unknown] thyroid (pork) [SENIOR FUNCTIONAL ANALYST Thyroid] 60 mg PO DAILY 01/25/21 [History Last Taken Unknown] hydroxychloroquine 200 mg PO BID 01/29/21 [History Last Taken Unknown] Allergy/AdvReac Type Severity Reaction Status Date / Time codeine AdvReac Nausea/Vom/ Verified 01/29/21 12:40 Diarrhea Surgical History H/O: hysterectomy History of appendectomy History of carpal tunnel surgery Social History (Updated 01/29/21 @ 14:[address] Reyes Cordon MD) household members: family Smoking Status: Never smoker alcohol intake: never substance use type: does not use ROS ROS ED Constitutional Constitutional ED: Reports chills, fever(s) and weight loss; Denies sweats Eyes Eyes: Denies blurry vision, change in vision or diplopia ENT ENT ED: Reports rhinorrhea and sore throat; Denies ear pain Cardiovascular Cardiovascular: Denies chest pain, orthopnea, palpitations, paroxysmal nocturnal dyspnea or racing heartbeat Respiratory/Chest Respiratory/Chest: Reports cough, dyspnea, dyspnea on exertion and sputum; Denies orthopnea or paroxysmal nocturnal dyspnea Gastrointestinal Gastrointestinal: Reports diarrhea and nausea; Denies abdominal pain, constipation, melena or vomiting Genitourinary Genitourinary ED: Denies dysuria, hematuria or urinary frequency Musculoskeletal Musculoskeletal: Reports arthralgias and myalgias; Denies back pain or neck pain Integumentary Reports rash and other Details: Per daughter her skin does not appeared normal and has a rash. ; Denies abscess or Abrasions Neurologic Neurologic: Reports headache(s) and weakness Endocrine Endocrinology: Denies polydipsia, polyphagia or polyuria Hematologic/Lymphatic Hematologic/Lymphatic: Denies easy bleeding or easy bruising EXAM Physical Exam Const Vital Signs: 01/29/21 12:37 01/29/21 13:21 01/29/21 13:27 Temperature 96.7 F L Temperature Source Temporal Pulse Rate 113 H 103 H Respiratory Rate 36 H 28 H Respiratory Effort Short of Breath Respiratory Depth Shallow Respiratory Pattern Tachypnea Blood Pressure 145/77 H 137/76 H Blood Pressure Mean 99 96 Pulse Ox 84 95 Oxygen Delivery Method Room Air Nasal Cannula Nasal Cannula Oxygen Flow Rate (L/min) 3 3 Positive well nourished and well developed General Appearance ED: well developed; Negative for pallor HEENT Reports TM's clear and dry mucous membranes HEENT Narrative: Ears are normal. Nares patent. Uvula midline. atraumatic Tympanic Membrane ED: Yes TM's clear Mouth ED: Yes dry mucous membranes Mouth: dry mucous membranes Eyes PERRL and EOMs intact bilaterally General Eye ED: Negative for pale conjunctiva or scleral icterus Neck no lymphadenopathy, supple, no meningeal signs and no JVD Resp No normal respiratory effort and No clear to auscultation bilaterally Auscultation: rales diffuse and diminished lung sounds Cardio regular rate, S1 normal heart sound, S2 normal heart sound and no murmurs Rate: tachycardic GI non-tender, non-distended and no masses Auscultation: normoactive bowel sounds Palpation: soft Back/Spine no CVA tenderness and normal to inspection Extremity normal to inspection Extremity Narrative: There is no asymmetry, swelling, discoloration, leg vein distention, palpable cords or tenderness along the distribution of the deep venous system. General Extremety ED: Negative for edema or tenderness General Extremity: Negative for edema Neuro oriented x3 and CN's II-XII intact bilaterally Sensorium / Orientation: alert Speech: speech normal Motor Exam: strength 5/5 throughout Psych mental status grossly normal Thought Process: normal thought process Skin no wounds General Skin Exam: Negative for jaundice or pallor Lesions: no lesions Rashes: no rashes MDM MDM MDM Narrative Medical decision making narrative: Clinically patient has Covid pneumonia. She will obtain chest x-ray, appropriate blood work. Since pulse ox was 84% on room air she was told she will need to be admitted. She was administered dose of Decadron. Since she is wheezing albuterol MDI it was ordered as well. Lab Data Attestation: I reviewed the patient's lab results. Lab results narrative: CBC is unremarkable. Comprehensive metabolic panel is essentially unremarkable. Lactate is normal. Covid test was positive. Labs: Laboratory Results - last 24 hr 01/29/21 01/29/21 01/29/21 14:36 14:36 14:36 WBC 7.8 RBC 4.90 Hgb 14.5 Hct 43.5 MCV 88.8 MCH 29.6 MCHC 33.3 RDW Std Deviation 41.1 RDW Coeff of Dylan 12.6 Plt Count 233 MPV 10.3 Immature Gran % (Auto) 0.900 Neut % (Auto) 81.3 H Lymph % (Auto) 11.4 L [place] % (Auto) 6.0 Eos % (Auto) 0.3 Baso % (Auto) 0.1 Absolute Neuts (auto) 6.3 Absolute Lymphs (auto) 0.89 Nucleated RBC % 0 Sodium 137 Potassium 3.7 Chloride 105 Carbon Dioxide 22.0 Anion Gap 10 BUN 17 Creatinine 0.69 Estim Creat Clear Calc 83.09 Est GFR (MDRD) Af Amer 110 Est GFR (MDRD) Non-Af 91 BUN/Creatinine Ratio 24.6 H Glucose 98 Lactic Acid 1.1 Calcium 8.7 Total Bilirubin 0.50 AST 41 H ALT 61 H Alkaline Phosphatase 74 Total Protein 7.2 Albumin 2.7 L Globulin 4.5 H Albumin/Globulin Ratio 0.6 L Radiography Chest X-Ray - ED: 1 View and Read by ED Physician (The single view chest x-ray was interpreted by ar at 1453. Patient has peripheral interstitial infiltrates that is multilobar consistent with Covid. Cardiac silhouette size normal. Osseous structures are normal.) Diagnostic Testing: Clinical Impression(s) from Imaging Studies Chest X-Ray 01/29/21 14:32 IMPRESSION: Progressive bilateral pulmonary infiltrates worse at the left lung base. Electronically Signed: Moreno Lu MD at 14:54 EST , Service support , EKG Initial EKG: Attestation: I personally reviewed and interpreted this EKG as follows: Interpretation: Sinus Rhythm (Sinus rhythm which is normal with a ventricular rate of 96. WV interval is 120 ms. QS duration 90 ms. QT duration 260 ms. Nemo is normal. EKG is normal.) Discharge Plan Triage Chief Complaint: Shortness of Breath ED Provider: Reyes Cordon Dx/Rx/DC Orders Clinical Impression: Pneumonia due to 2019-nCoV, Acute respiratory failure with hypoxia, Acute bronchospasm Prescriptions: No Action atorvastatin 20 MG tablet 20 mg PO QHS RF: 0 atenolol 25 MG tablet 25 mg PO DAILY RF: 0 tramadol 50 MG tablet 50 mg PO Q6H PRN PRN (Reason: Pain) RF: 0 zolmitriptan [Zomig] 5 MG tablet 5 mg PO DAILY PRN PRN (Reason: Migraine Headache) RF: 0 ergocalciferol (vitamin D2) [Vitamin D2] 1,250 mcg (50,000 unit) capsule 50,000 unit PO QWEEK RF: 0 pregabalin [Lyrica] 100 mg Capsule 100 mg PO TID RF: 0 thyroid (pork) [SENIOR FUNCTIONAL ANALYST Thyroid] 60 mg tablet 60 mg PO DAILY RF: 0 hydroxychloroquine 200 mg tablet 200 mg PO BID RF: 0 Primary Care Provider: Jen No Referrals: Jen No MD [Primary Care Provider] - Disposition Disposition: Acute Care Hospital [facility]
[2021-01-29 14:45] LABS: Absolute Lymphocyte Count 0.89 X10^3/uL (0.83-4.51); Absolute Neutrophil Count 6.3 X10^3/uL (2.0-7.7); Basophil# 0.01 X10^3/uL; Basophil% 0.1 % (0-1); Eosinophil# 0.02 X10^3/uL; Eosinophils% 0.3 % (0-5); Hematocrit 43.5 % (37-47); Hemoglobin 14.5 g/dL (12.0-15.0); Lymphocyte # 0.89 X10^3/ul (0.83-4.51); Lymphocyte % 11.4 % (19-41); Mean Corp Hgb Conc 33.3 g/dL (32-36); Mean Corpuscular Hgb 29.6 pg (27.0-32.0); Mean Corpuscular Volume 88.8 fL (81-99); Mean Platelet Vol. 10.3 fl (6.2-12.0); Monocyte# 0.47 X10^3/uL; NRBC Flagged by Analyzer 0 % (0-5); Neutrophil # 6.34 X10^3/uL (2.7-7.7); Neutrophil % 81.3 % (47-70); Platelet Count 233 K/mm3 (150-450); RBC Distribution Width CV 12.6 % (11.6-14.6); RBC Distribution Width SD 41.1 fl (35.1-43.9); White Blood Count 7.8 K/mm3 (4.4-11.0)
[2021-01-29] MEDS: 0.9% Normal Saline 1,000 ML 125 ML IV (14:48)
[2021-01-29] MEDS: dexAMETHasone 10 MG/ML Vial IV (14:48)
[2021-01-29 15:01] LABS: ALB/GLOB Ratio 0.6 RATIO (0.9-2.4); AST(SGOT) 41 U/L (15-37); Alanine Aminotransfer ALT/SGPT 61 U/L (13-56); Albumin, Serum 2.7 g/dL (3.2-5.0); Alkaline Phosphatase 74 U/L (45-117); Anion Gap 10 (5-15); BUN 17 mg/dL (7-18); BUN/Creat Ratio 24.6 RATIO (10-20); Calcium,Total 8.7 mg/dL (8.5-10.1); Chloride 105 mmol/L (98-107); Creatinine, Serum 0.69 mg/dL (0.55-1.02); EST Glomerular Filtration Rate 91 mL/min (>60); Est Glom Filt Rate - Afr Amer 110 mL/min (>60); Estimated Creatinine Clearance 83.09 ml/min; Globulin 4.5 g/dL (2.2-4.2); Glucose 98 mg/dL (74-106); Potassium 3.7 mmol/L (3.5-5.1); Protein, Total 7.2 g/dL (6.4-8.2); Sodium Level 137 mmol/L (136-145)
[2021-01-29 15:12] LABS: Lactic Acid 1.1 mmol/L (0.4-1.9)
--- NOTE | 2021-01-29 16:21 | HP.PCM.HOS_ITS ---
Documented by User: Theo BRAR 01/29/21 16:45 HPI - General General Date of Admission: 01/29/21 Date of Service: 01/29/21 Chief Complaint: Shortness of breath HPI Narrative GLORIA DURHAM is a 65-year-old female who presents to the ED at [facility] on 01/29/2021 with progressively worsening shortness of breath, productive nonpurulent cough, fevers, chills and diffuse arthralgias/myalgias, nausea and weight loss secondary to not eating in over a week. Patient reports that last 01/21/2021 patient began to not feel well and then symptoms started to progressively get worse. Patient reports that she has had contact with her family who have all recently had Covid. Patient horacio rowe reports that earlier this month she was in the [facility] on vacation. Patient was seen last week in the ED and refused a Covid test. Patient's vital signs in the ED are temperature of 96.7 ?F, HR 113, RR of 36 and patient was satting 84% on room air. Chest x-ray in the ED demonstrated progressively bilateral pneumonia infiltrates worse to the left base. CBC shows WBCs at 7.8, hemoglobin of 14.5 and platelets at 233. CMP is unremarkable. Rapid Covid is positive and blood cultures are pending. [facility] Medical History (Updated 01/29/21 @ 16:42 by Theo BRAR) High cholesterol History of kidney stones Hypertension Migraines Neuropathic pain Non-smoker Rheumatoid arthritis Home Medications atenolol 25 mg PO DAILY 04/15/13 [History Last Taken 01/28/21] atorvastatin 20 mg PO QHS 04/15/13 [History Last Taken 01/28/21] tramadol 50 mg PO Q6H PRN PRN 04/15/13 [History Last Taken Unknown] zolmitriptan [Zomig] 5 mg PO DAILY PRN PRN 04/15/13 [History Last Taken Unknown] ergocalciferol (vitamin D2) [Vitamin D2] 50,000 unit PO FR 01/25/21 [History Last Taken 01/25/21] pregabalin [Lyrica] 100 mg PO TID 01/25/21 [History Last Taken 01/28/21] thyroid (pork) [MANAGER DIESEL Thyroid] 60 mg PO DAILY 01/25/21 [History Last Taken 01/28/21] hydroxychloroquine 200 mg PO BID 01/29/21 [History Last Taken 01/28/21] Allergy/AdvReac Type Severity Reaction Status Date / Time codeine AdvReac Nausea/Vom/ Verified 01/29/21 12:40 Diarrhea Family History (Updated 01/29/21 @ 16:33 by Theo BRAR) Father No problems noted. Mother CVA (cerebral vascular accident) Diabetes Surgical History (Updated 01/29/21 @ 16:31 by Theo BRAR) H/O: hysterectomy History of appendectomy History of carpal tunnel surgery Hx of section Social History household members: family Smoking Status: Never smoker alcohol intake: never substance use type: does not use ROS Constitutional Constitutional: Reports change in weight, chills, fatigue, fever(s), malaise and weakness; Denies anorexia, night sweats or other Eyes Eyes: Denies blurry vision, change in eye color, change in vision, discharge fro m eye(s), double vision, erythema, eye pain, loss of vision or other ENT HEENT: Reports nasal discharge; Denies abnormal hearing, dysphagia, ear pain, epistaxis, headache(s), hearing loss, nasal congestion, post nasal drip, sinus pressure, sore throat or other Cardiovascular Cardiovascular: Denies chest pain, claudication, dyspnea on exertion, edema, lightheadedness, orthopnea, palpitations, paroxysmal nocturnal dyspnea, rapid heart rate, syncope or other Respiratory/Chest Respiratory/Chest: Reports cough, dyspnea, excessive phlegm production, product basil cough, shortness of breath at rest and shortness of breath with exertion; Denies hemoptysis, wheezing or other Gastrointestinal Gastrointestinal: Reports nausea and vomiting; Denies abdominal pain, coffee ground emesis, constipation, diarrhea, dyspepsia, hematemesis, hematochezia, loose stools, melena or other Genitourinary Genitourinary: Denies burning urination, difficulty urinating, dysuria, daniel turia, nocturia, urinary frequency, urinary hesitancy, urinary incontinence, urinary urgency or other Musculoskeletal Musculoskeletal: Denies arthralgias, back pain, joint pain, joint stiffness, joint swelling, myalgias, neck pain or other Neurologic Neurologic: Denies abnormal gait, abnormal speech, confusion, disequilibrium, dizziness, focal weakness, headache(s), numbness, paresthesias, seizure-like activity, seizures, syncope, tingling, tremor(s) or other Psychiatric Psychiatric: Denies anxiety, depression, homicidal ideation, suicidal ideation or other Endocrine Endocrinology: Denies change in body appearance, cold intolerance, excessive sweating, heat intolerance, polydipsia, polyuria or other Hematologic/Lymphatic Hematologic/Lymphatic: Denies anemia, easy bleeding, easy bruising, lymphadenopathy or other Allergic/Immunologic Allergic/Immunologic: Denies rhinitis, hives, eczemia, asthma or other Vital Signs Vital Signs Vital Signs: 01/29/21 12:37 01/29/21 13:21 01/29/21 13:27 Temperature 96.7 F L Temperature Source Temporal Pulse Rate 113 H 103 H Respiratory Rate 36 H 28 H Respiratory Effort Short of Breath Respiratory Depth Shallow Respiratory Pattern Tachypnea Blood Pressure 145/77 H 137/76 H Blood Pressure Mean 99 96 Pulse Ox 84 95 Oxygen Delivery Method Room Air Nasal Cannula Nasal Cannula Oxygen Flow Rate (L/min) 3 3 01/29/21 15:37 Temperature Temperature Source Pulse Rate 97 Respiratory Rate 27 H Respiratory Effort Respiratory Depth Respiratory Pattern Blood Pressure 128/67 H Blood Pressure Mean 87 Pulse Ox 95 Oxygen Delivery Method Nasal Cannula Oxygen Flow Rate (L/min) 2 Weight Weight: 193 lb Body Mass Index (BMI) 29.3 Physical Exam Const alert and oriented x3 General Appearance: cooperative HEENT normocephalic, head/scalp atraumatic and hearing grossly normal bilaterally Eyes PERRL, EOMs intact bilaterally and conjunctivae normal Neck no lymphadenopathy, supple and no JVD Resp Effort and Inspection: tachypneic, respiratory distress and labored Auscultation: diminished lung sounds Cardio regular rate, regular rhythm, no murmurs and no JVD GI normal to inspection, nondistended, normoactive bowel sounds, soft to palpation and non-tender Extremity normal to inspection, full ROM and no clubbing, cyanosis or edema Skin no rashes or lesions noted, no wounds and skin turgor normal Neuro CN's II-XII intact bilaterally Psych affect normal Results Lab / Micro Data Result Diagrams: 01/29/21 14:36 01/29/21 14:36 Labs: Laboratory Results - last 24 hr 01/29/21 14:36: WBC 7.8, RBC 4.90, Hgb 14.5, Hct 43.5, MCV 88.8, MCH 29.6, MCHC 33.3, RDW Std Deviation 41.1, RDW Coeff of Dylan 12.6, Plt Count 233, MPV 10.3, Immature Gran % (Auto) 0.900, Neut % (Auto) 81.3 H, Lymph % (Auto) 11.4 L, [place] % (Auto) 6.0, Eos % (Auto) 0.3, Baso % (Auto) 0.1, Absolute Neuts (auto) 6.3, Absolute Lymphs (auto) 0.89, Nucleated RBC % 0 01/29/21 14:36: Sodium 137, Potassium 3.7, Chloride 105, Carbon Dioxide 22.0, Anion Gap 10, BUN 17, Creatinine 0.69, Estim Creat Clear Calc 83.09, Est GFR (MDRD) Af Amer 110, Est GFR (MDRD) Non-Af 91, BUN/Creatinine Ratio 24.6 H, Glucose 98, Calcium 8.7, Total Bilirubin 0.50, AST 41 H, ALT 61 H, Alkaline Ph osphatase 74, Total Protein 7.2, Albumin 2.7 L, Globulin 4.5 H, Albumin/Globulin Ratio 0.6 L 01/29/21 14:36: Lactic Acid 1.1 Micro: Microbiology 01/29/21 14:38 Nasal Secretion SARS-CoV-2 Antigen (Rapid) - Final SARS-CoV-2 (COVID 19) Radiology Impression Chest X-Ray 01/29/21 14:32 IMPRESSION: Progressive bilateral pulmonary infiltrates worse at the left lung base. Electronically Signed: Moreno Lu MD at 14:54 EST , Service support , Assessment & Plan Assessment/Plan (1) Pneumonia due to COVID-19 virus: (2) Acute respiratory failure with hypoxia: PLAN: Patient is a 65-year-old female who presents to the ED at [facility] on 01/29/2021 with a chief complaint of shortness of breath with nonpurulent productive cough. Patient will be admitted for management of symptomatic COVID-19 infection. 1) acute hypoxic respiratory failure secondary to symptomatic COVID-19 infection Patient reports multiple contacts with infected COVID-19 patients as well as recent travel. Patient was in hypoxic respiratory failure on admission with an oxygen saturation of 84% on room air and respirations at 36 breaths/min. Patient was also tachycardic, but afebrile. CBC does not demonstrate a leukocytosis and lactic acid is within normal limits. Creatinine is unremarkable. Rapid Covid was positive. Chest x-ray demonstrates progressive bilateral pulmonary infiltrates that are worse at the left lung base. Plan; admit to [facility] 3, initiate Covid precautions, initiate Decadron and remdesivir, O2 as needed, ID consult ordered, CBC and BMP in a.m., blood cultures ordered/pending. 2) HTN Stable, continue atenolol. 3) hyperlipidemia Continue statin. 4) rheumatoid arthritis Continue hydroxychloroquine. CODE STATUS: DNRCC-A, no intubation. Advance care planning: Patient's daughter Beatrice Grossman is patient's healthcare power of insurance attorney and is to make decisions for patient in the event she cannot do so herself. DVT prophylaxis - Lovenox Patient seen by Theo Rapp PA-C, under the supervision of Dr. Fisher. Documented by User: Dr. Truman Fisher, 01/29/21 19:47 HPI - General General Date of Admission: 01/29/21 [facility] Medical History (Updated 01/29/21 @ 16:42 by Theo BRAR) High cholesterol History of kidney stones Hypertension Migraines Neuropathic pain Non-smoker Rheumatoid arthritis Home Medications atenolol 25 mg PO DAILY 04/15/13 [History Last Taken 01/28/21] atorvastatin 20 mg PO QHS 04/15/13 [History Last Taken 01/28/21] tramadol 50 mg PO Q6H PRN PRN 04/15/13 [History Last Taken Unknown] zolmitriptan [Zomig] 5 mg PO DAILY PRN PRN 04/15/13 [History Last Taken Unknown] ergocalciferol (vitamin D2) [Vitamin D2] 50,000 unit PO FR 01/25/21 [History Las t Taken 01/25/21] pregabalin [Lyrica] 100 mg PO TID 01/25/21 [History Last Taken 01/28/21] thyroid (pork) [MANAGER DIESEL Thyroid] 60 mg PO DAILY 01/25/21 [History Last Taken 01/28/21] hydroxychloroquine 200 mg PO BID 01/29/21 [History Last Taken 01/28/21] Allergy/AdvReac Type Severity Reaction Status Date / Time codeine AdvReac Nausea/Vom/ Verified 01/29/21 12:40 Diarrhea Family History (Updated 01/29/21 @ 16:33 by Theo BRAR) Father No problems noted. Mother CVA (cerebral vascular accident) Diabetes Surgical History (Updated 01/29/21 @ 16:31 by Theo BRAR) H/O: hysterectomy History of appendectomy History of carpal tunnel surgery Hx of section Social History household members: family Smoking Status: Never smoker alcohol intake: never substance use type: does not use Results Lab / Micro Data Result Diagrams: 01/29/21 14:36 01/29/21 14:36 Charges/Coding Addendum Addendum: Patient was seen and examined today independently of Theo Rapp, she came to the emergency room today planing of shortness of breath and symptoms suggestive of COVID-19. Patient states that last Thursday (of last week) patient felt as if she was coming down with an upper respiratory tract infection, she declined to get a COVID-19 test however. On examination she appeared in good health and spirits, she does not appear to be in any distress. Vital signs as documented. Skin warm and dry and without overt rashes. Neck without JVD, thyroid appears normal, trachea is midline, neck is supple. Lungs clear, normal air movement was noted. Heart exam notable for regular rhythm, normal sounds and absence of murmurs, rubs or gallops. Abdomen unremarkable and without evidence of organomegaly, masses, or abdominal aortic enlargement, bowel sounds are present in all 4 quadrants, no abdominal tenderness was noted. Extremities nonedematous, no cyanosis was noted, no clubbing was noted. Neuro: Cranial nerves II through XII are grossly intact, no focal motor deficits were noted, sensation to light touch and pinprick is intact, motor exam 5/5 throughout. Psych: Patient is alert and oriented x3, she does not appear anxious or depressed, she does not appear agitated. Work-up in the emergency room showed that the patient had COVID-19 pneumonia, she required low-flow oxygen at this time however, she is a candidate for remdesivir and dexamethasone. I had a discussion with the patient concerning her CODE STATUS, patient does not want to be a full code, she wants to be a DNR CC arrest with no intubation. I have reviewed Theo Silva's history and physical including his medical assessment and plan of care and endorse with the above additions. Visit Charges Inpatient E&M: 66798 Init Hosp L3
[2021-01-29] MEDS: 0.9% Saline Lock 10 ML Syringe IV ×2 (18:34→22:40)
[2021-01-29] MEDS: Enoxaparin 40 MG/0.4 ML Syringe SC (18:38)
[2021-01-29] MEDS: Atorvastatin Calcium 20 MG Tablet PO (22:39)
[2021-01-29] MEDS: Pregabalin 50 MG Capsule 100 MG PO (22:39)
[2021-01-29] MEDS: Acetaminophen 325 MG Tablet 650 MG PO (22:39)
[2021-01-29] MEDS: Hydroxychloroquine 200 MG Tablet PO (22:40)
[2021-01-30] MEDS: guaiFENesin/D-Methorphan TAB.SR.12H 1 TABLET PO ×3 (02:11→20:46)
[2021-01-30 02:12] VITALS: BP 137/72; PULSE 81; RESP 16; TEMP 36.6; O2SAT 98
[2021-01-30] MEDS: Pregabalin 50 MG Capsule 100 MG PO ×3 (06:39→20:46)
[2021-01-30] MEDS: Acetaminophen 325 MG Tablet 650 MG PO ×2 (06:39→20:46)
[2021-01-30 06:44] LABS: Hematocrit 41.5 % (37-47); Mean Corp Hgb Conc 33.7 g/dL (32-36); Mean Corpuscular Hgb 29.9 pg (27.0-32.0); Mean Corpuscular Volume 88.5 fL (81-99); Mean Platelet Vol. 10.5 fl (6.2-12.0); Platelet Count 242 K/mm3 (150-450); RBC Distribution Width CV 12.5 % (11.6-14.6); RBC Distribution Width SD 40.3 fl (35.1-43.9); Red Blood Count 4.69 M/mm3 (4.2-5.4); White Blood Count 5.5 K/mm3 (4.4-11.0)
[2021-01-30 07:05] LABS: ALB/GLOB Ratio 0.5 RATIO (0.9-2.4); AST(SGOT) 52 U/L (15-37); Alanine Aminotransfer ALT/SGPT 77 U/L (13-56); Albumin, Serum 2.4 g/dL (3.2-5.0); Alkaline Phosphatase 74 U/L (45-117); Anion Gap 9 (5-15); BUN 18 mg/dL (7-18); BUN/Creat Ratio 30.2 RATIO (10-20); Calcium,Total 8.4 mg/dL (8.5-10.1); Chloride 110 mmol/L (98-107); EST Glomerular Filtration Rate 108 mL/min (>60); Est Glom Filt Rate - Afr Amer 130 mL/min (>60); Estimated Creatinine Clearance 95.55 ml/min; Globulin 4.4 g/dL (2.2-4.2); Glucose 131 mg/dL (74-106); Potassium 3.9 mmol/L (3.5-5.1); Protein, Total 6.8 g/dL (6.4-8.2); Sodium Level 140 mmol/L (136-145)
[2021-01-30 08:00] VITALS: BP 134/66; PULSE 84; RESP 18; TEMP 36.7; O2SAT 94
[2021-01-30] MEDS: Atenolol 25 MG Tablet PO (09:41)
[2021-01-30] MEDS: Thyroid 60 MG Tablet PO (09:41)
[2021-01-30] MEDS: dexAMETHasone 10 MG/ML Vial 6 MG IV (09:41)
[2021-01-30] MEDS: Hydroxychloroquine 200 MG Tablet PO ×2 (09:41→20:46)
[2021-01-30] MEDS: 0.9% Saline Lock 10 ML Syringe IV ×2 (09:42→20:47)
[2021-01-30] MEDS: Enoxaparin 40 MG/0.4 ML Syringe SC (09:42)
--- NOTE | 2021-01-30 10:51 | PCS.PANDOC ---
PANDEMIC DOCUMENTATION INITIATED: Date: 10/15/2020 Time: 190
--- NOTE | 2021-01-30 11:37 | CASEMGMT ---
NAUN SU Assessment: Face to Face with pt for initial transition planning/care coordination assessment. NAUN SU introduced self and role at [facility], pt voices understanding and consents to assessment. Pt is A/O x4 and answers all questions appropriately at this time. Pt lying in bed with O2 on in no distress. Care providers, pharmacy, and demographics verified/updated. Admitting Dx: COVID PNA, resp failure with hypoxia PCP:[facility] Specialists: suman Mehta Preferred Pharmacy: [facility] Retail Insurance: [employer] Prescription Benefit: yes LW/HPOA: Pt states she has a LW/DPOA, her DPOA is her dtr Mikala Grossman. She is aware that it is not on file at [facility] and she may bring in to be scanned into her chart. LNOK: Mikala Grossman, dtr; Cyrus Doe, sig other Living Arrangements: Pt lives with a son. He lives in the basement. Pt reports she is I in ADL's and denies concerns at home. Transportation: Pt drives self and denies concerns with transportation. DME/HHC/SNF: Pt has a rollator at home but does not use. Pt denies hx of HHC or SNF stays. Pt states that she was first tested at [facility] for COVID. Her son was positive but recently had a negative test. She states her sig other is negative. Pt has family who can provide her with groceries and supplies while in quarantine. Provided pt with a local in network list of DME companies should she need home O2, she has no preference. Pt states no concerns with going home at time of dc. Pt states no further concerns/needs. CM to follow. Advised pt to ask CM if any further question/concerns/needs arise, voices understanding. Pt Goal: Home Plan: Home
--- NOTE | 2021-01-30 13:53 | PCM.PN.HOSP ---
Documented by User: Theo BRAR 01/30/21 14:02 Subjective Subjective Patient is a 65-year-old female comfortably resting in bed, alert and oriented x3. Patient still reports feeling short of breath, but denies development of any new symptoms overnight. Does not appear in acute distress. Objective Data Objective Data Vital Signs: Vital Signs Temp Pulse Resp BP Pulse Ox 98.0 F 84 18 134/66 H 94 01/30/21 08:00 01/30/21 08:00 01/30/21 08:00 01/30/21 08:00 01/30/21 08:00 Oxygen Flow Rate (L/min) 2 Oxygen Delivery Method Nasal Cannula Weight: 197 lb 1.492 oz Body Mass Index (BMI) 29.9 Intake & Output: Intake and Output for Last 24 Hours 01/28/21 01/29/21 01/30/21 23:59 23:59 23:59 Intake Total 525 / 525 600 / 600 Balance 525 / 525 600 / 600 Lab / Micro Data Result Diagrams: 01/30/21 06:14 01/30/21 06:14 Labs: Laboratory Results - last 24 hr 01/29/21 14:36: WBC 7.8, RBC 4.90, Hgb 14.5, Hct 43.5, MCV 88.8, MCH 29.6, MCHC 33.3, RDW Std Deviation 41.1, RDW Coeff of Dylan 12.6, Plt Count 233, MPV 10.3, Immature Gran % (Auto) 0.900, Neut % (Auto) 81.3 H, Lymph % (Auto) 11.4 L, [place] % (Auto) 6.0, Eos % (Auto) 0.3, Baso % (Auto) 0.1, Absolute Neuts (auto) 6.3, Absolute Lymphs (auto) 0.89, Nucleated RBC % 0 01/29/21 14:36: Sodium 137, Potassium 3.7, Chloride 105, Carbon Dioxide 22.0, Anion Gap 10, BUN 17, Creatinine 0.69, Estim Creat Clear Calc 83.09, Est GFR (MDRD) Af Amer 110, Est GFR (MDRD) Non-Af 91, BUN/Creatinine Ratio 24.6 H, Glucose 98, Calcium 8.7, Total Bilirubin 0.50, AST 41 H, ALT 61 H, Alkaline Phosphatase 74, Total Protein 7.2, Albumin 2.7 L, Globulin 4.5 H, Albumin/Globulin Ratio 0.6 L 01/29/21 14:36: Lactic Acid 1.1 01/30/21 06:14: WBC 5.5, RBC 4.69, Hgb 14.0, Hct 41.5, MCV 88.5, MCH 29.9, MCHC 33.7, RDW Std Deviation 40.3, RDW Coeff of Dylan 12.5, Plt Count 242, MPV 10.5 01/30/21 06:14: Sodium 140, Potassium 3.9, Chloride 110 H, Carbon Dioxide 21.0, Anion Gap 9, BUN 18, Creatinine 0.60, Estim Creat Clear Calc 95.55, Est GFR (MDRD) Af Amer 130, Est GFR (MDRD) Non-Af 108, BUN/Creatinine Ratio 30.2 H, Glucose 131 H, Calcium 8.4 L, Total Bilirubin 0.40, AST 52 H, ALT 77 H, Alkaline Phosphatase 74, Total Protein 6.8, Albumin 2.4 L, Globulin 4.4 H, Albumin/Globulin Ratio 0.5 L Micro: Microbiology 01/29/21 14:38 Nasal Secretion SARS-CoV-2 Antigen (Rapid) - Final SARS-CoV-2 (COVID 19) Radiography Diagnostic Testing: Radiology Impression Chest X-Ray 01/29/21 14:32 IMPRESSION: Progressive bilateral pulmonary infiltrates worse at the left lung base. Electronically Signed: Moreno Lu MD at 14:54 EST , Service support , Physical Exam Const alert, oriented x3 and no apparent distress HEENT head/scalp atraumatic and moist oral mucous membranes Head and Scalp: normocephalic Eyes PERRL, EOMs intact bilaterally and conjunctivae normal Neck no lymphadenopathy, supple and no JVD Resp Resp Narrative: Currently satting 94% on 2 L via nasal cannula. Effort and Inspection: tachypneic and labored Auscultation: diminished lung sounds Cardio regular rate, regular rhythm, no murmurs and no JVD GI normal to inspection, nondistended, normoactive bowel sounds, soft to palpation and non-tender Extremity normal to inspection, full ROM and no clubbing, cyanosis or edema Peripheral Pulses: Yes pulses 2+ throughout Skin no rashes or lesions noted, no wounds, skin turgor normal and no jaundice Neuro CN's II-XII intact bilaterally Psych affect normal Assessment & Plan Assessment/Plan (1) Pneumonia due to COVID-19 virus: (2) Acute respiratory failure with hypoxia: PLAN: Day one Discharge planning: To be determined 1) acute respiratory distress secondary to symptomatic COVID-19 infection Patient still reports being acutely short of breath, although vital signs are stable and patient is currently satting 94% on 2 L via nasal cannula. CBC is unremarkable and does not demonstrate a leukocytosis. BMP is unremarkable. Lactic acid is within normal limits. Continue Decadron, remdesivir and O2 per protocol. Blood cultures pending. 2) HTN Stable, continue atenolol. 3) hyperlipidemia Continue statin. 4) rheumatoid arthritis Continue hydroxychloroquine. DVT prophylaxis - Lovenox Patient seen by Theo Rapp PA-C, under the supervision of Dr. Fisher. Documented by User: Dr. Truman Fisher, 01/30/21 19:46 Objective Data Lab / Micro Data Result Diagrams: 01/30/21 06:14 01/30/21 06:14 Charges/Coding Addendum Addendum: Patient was seen and examined independently of Theo Rapp today, she appears comfortable at rest on 2 L via nasal cannula. Patient does not complain of any fevers or chills. On examination she appeared in good health and spirits, she does not appear to be in any distress. Vital signs as documented. Skin warm and dry and without overt rashes. Neck without JVD, thyroid appears normal, trachea is midline, neck is supple. Lungs clear, normal air movement was noted. Heart exam notable for regular rhythm, normal sounds and absence of murmurs, rubs or gallops. Abdomen unremarkable and without evidence of organomegaly, masses, or abdominal aortic enlargement, bowel sounds are present in all 4 quadrants, no abdominal tenderness was noted. Extremities nonedematous, no cyanosis was noted, no clubbing was noted. Neuro: Cranial nerves II through XII are grossly intact, no focal motor deficits were noted, sensation to light touch and pinprick is intact, motor exam 5/5 throughout. Psych: Patient is alert and oriented x3, she does not appear anxious or depressed, she does not appear agitated. Patient will remain on her present medications, I will evaluate her oxygen requirement tomorrow. I have reviewed Theo Rapp's progress note including his medical assessment and plan of care and endorse it. Visit Charges Inpatient E&M: 32078 Subs Hosp L2
[2021-01-30 14:07] VITALS: BP 134/65; PULSE 76; RESP 18; TEMP 36.4; O2SAT 95
[2021-01-30] MEDS: Zolpidem Tartrate 5 MG Tablet PO (20:45)
[2021-01-30] MEDS: Atorvastatin Calcium 20 MG Tablet PO (20:46)
[2021-01-30 20:55] VITALS: BP 155/67; PULSE 86; RESP 18; TEMP 36.4; O2SAT 94
[2021-01-31 03:54] VITALS: BP 139/65; PULSE 90; RESP 18; TEMP 36.8; O2SAT 97
[2021-01-31] MEDS: Pregabalin 50 MG Capsule 100 MG PO ×3 (06:27→21:48)
[2021-01-31 07:49] LABS: Absolute Lymphocyte Count 1.21 X10^3/uL (0.83-4.51); Basophil# 0.03 X10^3/uL; Basophil% 0.3 % (0-1); Hematocrit 40.4 % (37-47); Hemoglobin 13.3 g/dL (12.0-15.0); Lymphocyte # 1.21 X10^3/ul (0.83-4.51); Lymphocyte % 11.9 % (19-41); Mean Corp Hgb Conc 32.9 g/dL (32-36); Mean Corpuscular Hgb 29.4 pg (27.0-32.0); Mean Corpuscular Volume 89.4 fL (81-99); Mean Platelet Vol. 10.4 fl (6.2-12.0); Monocyte# 0.62 X10^3/uL; Monocyte% 6.1 % (0-10); NRBC Flagged by Analyzer 0 % (0-5); Neutrophil # 8.04 X10^3/uL (2.7-7.7); Neutrophil % 79.3 % (47-70); Platelet Count 291 K/mm3 (150-450); RBC Distribution Width CV 12.5 % (11.6-14.6); RBC Distribution Width SD 40.6 fl (35.1-43.9); Red Blood Count 4.52 M/mm3 (4.2-5.4); White Blood Count 10.1 K/mm3 (4.4-11.0)
[2021-01-31 08:08] LABS: Anion Gap 8 (5-15); BUN 25 mg/dL (7-18); BUN/Creat Ratio 38.6 RATIO (10-20); Calcium,Total 8.5 mg/dL (8.5-10.1); Chloride 113 mmol/L (98-107); Creatinine, Serum 0.65 mg/dL (0.55-1.02); EST Glomerular Filtration Rate 98 mL/min (>60); Est Glom Filt Rate - Afr Amer 118 mL/min (>60); Glucose 148 mg/dL (74-106); Sodium Level 141 mmol/L (136-145)
[2021-01-31 09:00] VITALS: BP 133/62; PULSE 72; RESP 18; TEMP 36.6; O2SAT 94
[2021-01-31] MEDS: Thyroid 60 MG Tablet PO (09:19)
[2021-01-31] MEDS: Hydroxychloroquine 200 MG Tablet PO ×2 (09:19→21:48)
[2021-01-31] MEDS: guaiFENesin/D-Methorphan TAB.SR.12H 1 TABLET PO ×2 (09:20→21:49)
[2021-01-31] MEDS: Enoxaparin 40 MG/0.4 ML Syringe SC (09:20)
[2021-01-31] MEDS: Atenolol 25 MG Tablet PO (09:20)
[2021-01-31] MEDS: dexAMETHasone 10 MG/ML Vial 6 MG IV (09:21)
[2021-01-31 12:58] VITALS: O2SAT 94
[2021-01-31 15:00] VITALS: BP 122/61; PULSE 65; RESP 18; TEMP 36.4; O2SAT 94
--- NOTE | 2021-01-31 17:42 | EKG12_ITS ---
Test Reason : CHEST PAIN Blood Pressure : / mmHG Vent. Rate : 070 BPM Atrial Rate : 070 BPM P-R Int : 098 ms QRS Dur : 092 ms QT Int : 432 ms P-R-T Axes : 068 087 073 degrees QTc Int : 466 ms Sinus rhythm with short NC Nonspecific ST abnormality Abnormal ECG When compared with ECG of 29-JAN-2021 14:22, MANUAL COMPARISON REQUIRED, DATA IS UNCONFIRMED Confirmed by GALINA LARA, LORRAINE ([id number]), scientific publications editor FRANCINE DEWEY ([id number]) on 02/04/2021 2:12:33 PM Referred By: RASHEEDA Confirmed By:LORRAINE MOJICA MD
--- NOTE | 2021-01-31 17:42 | NURSING ---
called to room for c/o chestpain. pt verbalized new onset midsternal cp denies radiation. states started after doing breathing devices and was 10/10 now closer to 1.5 but not gone. states never had this before. talked with Dr. Fisher. cps notified to ekg. No distress noted.
[2021-01-31 18:15] VITALS: PULSE 68
--- NOTE | 2021-01-31 18:59 | PN.HOSP_ITS ---
Subjective Subjective Patient was seen and examined today, she remains on nasal cannula oxygen at 3 L/min. Patient had an episode of chest pain late this afternoon and an EKG was performed which showed normal sinus rhythm without evidence of injury pattern or ischemic changes. Patient does not complain of any fever or chills. Objective Data Objective Data Vital Signs: Vital Signs Temp Pulse Resp BP Pulse Ox 97.6 F L 65 18 122/61 H 94 01/31/21 15:00 01/31/21 15:00 01/31/21 15:00 01/31/21 15:00 01/31/21 15:00 Oxygen Flow Rate (L/min) 3 Oxygen Delivery Method Nasal Cannula Weight: 89.4 kg Body Mass Index (BMI) 29.9 Intake & Output: Intake and Output for Last 24 Hours 01/29/21 01/30/21 01/31/21 23:59 23:59 23:59 Intake Total 525 / 525 1100 / 1100 Output Total 600 / 600 Balance 525 / 525 1100 / 1100 -600 / -600 Lab / Micro Data Result Diagrams: 01/31/21 07:20 01/31/21 07:20 Labs: Laboratory Results - last 24 hr 01/31/21 07:20: WBC 10.1, RBC 4.52, Hgb 13.3, Hct 40.4, MCV 89.4, MCH 29.4, MCHC 32.9, RDW Std Deviation 40.6, RDW Coeff of Dylan 12.5, Plt Count 291, MPV 10.4, Immature Gran % (Auto) 2.400 H, Neut % (Auto) 79.3 H, Lymph % (Auto) 11.9 L, [place] % (Auto) 6.1, Eos % (Auto) 0.0, Baso % (Auto) 0.3, Absolute Neuts (auto) 8.0 H, Absolute Lymphs (auto) 1.21, Nucleated RBC % 0 01/31/21 07:20: Sodium 141, Potassium 4.0, Chloride 113 H, Carbon Dioxide 20.0 L , Anion Gap 8, BUN 25 H, Creatinine 0.65, Estim Creat Clear Calc 88.20, Est GFR (MDRD) Af Amer 118, Est GFR (MDRD) Non-Af 98, BUN/Creatinine Ratio 38.6 H, Glucose 148 H, Calcium 8.5 Micro: Microbiology 01/29/21 15:22 Blood Culture (Wb) - Anticubital Left Blood Culture - Preliminary No growth in 48 hours. 01/29/21 14:36 Blood Culture (Wb) - Anticubital Right Blood Culture - Preliminary No growth in 48 hours. 01/29/21 14:38 Nasal Secretion SARS-CoV-2 Antigen (Rapid) - Final SARS-CoV-2 (COVID 19) Physical Exam Const alert, oriented x3, no apparent distress and healthy appearing General Appearance: cooperative, well kempt and well developed Orientation / Consciousness: awake, oriented to person, oriented to place and oriented to time HEENT normocephalic and moist oral mucous membranes Eyes PERRL, EOMs intact bilaterally and conjunctivae normal Neck nuchal rigidity, supple, no JVD and thyroid normal General: trachea midline Resp normal respiratory effort and clear to auscultation bilaterally Auscultation: Negative for rales, rhonchi or wheezes Cardio regular rate, regular rhythm, no murmurs, no rub and no gallops GI normal to inspection, nondistended, normoactive bowel sounds, soft to palpation, non-tender and non-distended Extremity no clubbing, cyanosis or edema Skin no rashes or lesions noted General Skin Exam: no breakdown Neuro oriented x3, CN's II-XII intact bilaterally, no focal motor deficits and no sensory deficits noted Sensorium / Orientation: awake and alert Speech: speech normal Psych thought process normal and affect normal Assessment & Plan Assessment/Plan (1) Pneumonia due to COVID-19 virus: PLAN: 1) COVID-19 infection, continue remdesivir and dexamethasone at this time #2 acute hypoxic respiratory failure secondary to #1, patient's pulse ox will be monitored 3) HTN Stable, continue atenolol. 4) hyperlipidemia Continue statin. 5) rheumatoid arthritis Continue hydroxychloroquine. #6 hypothyroidism #7 neuropathic pain-patient takes tramadol and Lyrica Patient is a DNR CC arrest no intubation Charges/Coding Visit Charges Inpatient E&M: 70899 Subs Hosp L2
[2021-01-31 21:40] VITALS: BP 136/72; PULSE 58; RESP 18; TEMP 36.6; O2SAT 95
[2021-01-31] MEDS: 0.9% Saline Lock 10 ML Syringe IV (21:48)
[2021-01-31] MEDS: Atorvastatin Calcium 20 MG Tablet PO (21:49)
[2021-01-31] MEDS: Zolpidem Tartrate 5 MG Tablet PO (21:59)
[2021-02-01] VITALS (11 sets, daily range): BP systolic 122–141; BP diastolic 64–70; PULSE 62–76; RESP 18–20; TEMP 36.6–37.2; O2SAT 90–96
[2021-02-01] MEDS: Pregabalin 50 MG Capsule 100 MG PO ×3 (05:33→21:20)
[2021-02-01] MEDS: 0.9% Saline Lock 10 ML Syringe IV ×2 (05:33→21:16)
[2021-02-01] MEDS: Thyroid 60 MG Tablet PO (08:56)
[2021-02-01] MEDS: guaiFENesin/D-Methorphan TAB.SR.12H 1 TABLET PO ×2 (08:56→21:20)
[2021-02-01] MEDS: Enoxaparin 40 MG/0.4 ML Syringe SC (08:56)
[2021-02-01] MEDS: Ergocalciferol 1.25 MG (50, 000 UNIT) Capsule PO (08:56)
[2021-02-01] MEDS: Atenolol 25 MG Tablet PO (08:56)
[2021-02-01] MEDS: dexAMETHasone 10 MG/ML Vial 6 MG IV (08:57)
[2021-02-01] MEDS: Hydroxychloroquine 200 MG Tablet PO ×2 (08:58→21:20)
--- NOTE | 2021-02-01 20:32 | PCM.PN.HOSP ---
Subjective Subjective Patient was seen and examined today, she is currently on nasal cannula oxygen at 3 L. Patient has no complaints of any chest pain or shortness of breath at rest. Objective Data Objective Data Vital Signs: Vital Signs Temp Pulse Resp BP Pulse Ox 98.9 F 72 18 132/66 H 91 02/01/21 13:50 02/01/21 14:26 02/01/21 15:39 02/01/21 13:50 02/01/21 20:31 Oxygen Flow Rate (L/min) 3 Oxygen Delivery Method Nasal Cannula Weight: 89.4 kg Body Mass Index (BMI) 29.9 Intake & Output: Intake and Output for Last 24 Hours 01/30/21 01/31/21 02/01/21 23:59 23:59 23:59 Intake Total 1100 / 1100 1100 / 1100 Output Total 600 / 600 Balance 1100 / 1100 -600 / -600 1100 / 1100 Lab / Micro Data Result Diagrams: 01/31/21 07:20 01/31/21 07:20 Micro: Microbiology 01/29/21 15:22 Blood Culture (Wb) - Anticubital Left Blood Culture - Preliminary No growth in 48 hours. 01/29/21 14:36 Blood Culture (Wb) - Anticubital Right Blood Culture - Preliminary No growth in 48 hours. 01/29/21 14:38 Nasal Secretion SARS-CoV-2 Antigen (Rapid) - Final SARS-CoV-2 (COVID 19) Physical Exam Const alert, oriented x3, no apparent distress and healthy appearing General Appearance: cooperative, well kempt and well developed Orientation / Consciousness: awake, oriented to person, oriented to place and oriented to time HEENT normocephalic and moist oral mucous membranes Eyes PERRL, EOMs intact bilaterally and conjunctivae normal Neck nuchal rigidity, supple, no JVD and thyroid normal General: trachea midline Resp normal respiratory effort and clear to auscultation bilaterally Auscultation: Negative for rales, rhonchi or wheezes Cardio regular rate, regular rhythm, no murmurs, no rub and no gallops GI normal to inspection, nondistended, normoactive bowel sounds, soft to palpation, non-tender and non-distended Extremity no clubbing, cyanosis or edema Skin no rashes or lesions noted General Skin Exam: no breakdown Neuro oriented x3, CN's II-XII intact bilaterally, no focal motor deficits and no sensory deficits noted Sensorium / Orientation: awake and alert Speech: speech normal Psych thought process normal and affect normal Assessment & Plan Assessment/Plan (1) Pneumonia due to COVID-19 virus: PLAN: 1) COVID-19 infection, continue remdesivir and dexamethasone at this time #2 acute hypoxic respiratory failure secondary to #1, patient's pulse ox will be monitored, patient's respiratory status is not declining 3) HTN Stable, continue atenolol. 4) hyperlipidemia Continue statin. 5) rheumatoid arthritis Continue hydroxychloroquine. #6 hypothyroidism #7 neuropathic pain-patient takes tramadol and Lyrica Patient is a DNR CC arrest no intubation Charges/Coding Visit Charges Inpatient E&M: 09370 Subs Hosp L2
[2021-02-01] MEDS: Atorvastatin Calcium 20 MG Tablet PO (21:19)
[2021-02-01] MEDS: Zolpidem Tartrate 5 MG Tablet PO (21:20)
[2021-02-02] VITALS (9 sets, daily range): BP systolic 98–128; BP diastolic 58–79; PULSE 68–80; RESP 18–20; TEMP 36.5–36.6; O2SAT 94–98
[2021-02-02] MEDS: Pregabalin 50 MG Capsule 100 MG PO ×2 (05:18→13:21)
[2021-02-02] MEDS: Atenolol 25 MG Tablet PO (09:04)
[2021-02-02] MEDS: dexAMETHasone 10 MG/ML Vial 6 MG IV (09:04)
[2021-02-02] MEDS: Thyroid 60 MG Tablet PO (09:04)
[2021-02-02] MEDS: Hydroxychloroquine 200 MG Tablet PO (09:04)
[2021-02-02] MEDS: guaiFENesin/D-Methorphan TAB.SR.12H 1 TABLET PO (09:05)
[2021-02-02] MEDS: 0.9% Saline Lock 10 ML Syringe IV (09:05)
[2021-02-02] MEDS: Enoxaparin 40 MG/0.4 ML Syringe SC (09:05)
--- NOTE | 2021-02-02 11:48 | DS.PCM_ITS ---
Providers Date of Admission: 01/29/21 Primary Care Physician: Dr. Jen No MD Reason For Visit: COVID PNEUMONIA, RESP FAILURE W/ HYPOXIA Diagnosis Discharge Diagnosis (1) Pneumonia due to COVID-19 virus: Status: Inactive Code(s): U07.1 - COVID-19; J12.82 - Pneumonia due to coronavirus disease 2019 Medications at Discharge Home Medications atenolol 25 mg PO DAILY 04/15/13 atorvastatin 20 mg PO QHS 04/15/13 tramadol 50 mg PO Q6H PRN PRN 04/15/13 zolmitriptan [Zomig] 5 mg PO DAILY PRN PRN 04/15/13 ergocalciferol (vitamin D2) [Vitamin D2] 50,000 unit PO FR 01/25/21 pregabalin [Lyrica] 100 mg PO TID 01/25/21 thyroid (pork) [COLLISION TECHNICIAN Thyroid] 60 mg PO DAILY 01/25/21 hydroxychloroquine 200 mg PO BID 01/29/21 dexamethasone [Decadron] 6 mg PO DAILY #6 tab 02/02/21 Hospital Course Operations None Procedures None Summary of Care Provided Minutes Spent on Discharge: 33 Hospital Course: Mrs. Deutsch is a 65-year-old white female who presented to the emergency department at [facility] on 01/29/2021 with progressively worsening shortness of breath, productive nonpurulent cough, fevers, chills, and diffuse arthralgias/myalgias with nausea and weight loss secondary to not eating well for approximately 1 week. She reported that on 01/21/2021 she began to not feel well and have the symptoms that she presented with. She indicated on admission she had contact with a family member who recently had Covid. She also noted that she had recent leaving on vacation in the [facility]. She was seen in the emergency department a week prior to admission and refused Covid testing at that time. Upon initial presentation her vital signs were stable other than a respiratory rate of 36 and an oxygen saturation of 84% on room air. Her chest x-ray showed worsening bilateral pneumonia and infiltrates. Her CBC was overall unremarkable as was her CMP as well. Her rapid Covid was positive. She was admitted and treated with supple mental oxygen, remdesivir, and Decadron. She was able to be weaned to room air with oxygen saturations at 95 to 96% at rest. On 02/02/2021 ambulatory and resting pulse ox is more obtained and she was 97% at rest on room air and 98% with ambulation. Given her clinical improvement and the fact that she was almost 14 days out from the initiation of symptoms we felt comfortable discharging her home. She was discharged home on 02/02/2021 and given a prescription to complete her Decadron of which she had six more days. She was encouraged to maintain quarantine until 02/10/2021 and follow-up with her PCP following. We did encourage vaccination although she did seem resistant at discharge. Discharge diagnoses: Acute hypoxic respiratory failure-resolved COVID-19 Hypertension Hyperlipidemia Rheumatoid arthritis Hypothyroidism Neuropathic pain-chronic History of nephrolithiasis History of migraine headaches Physical Exam Const alert, oriented x3 and no apparent distress Constitutional Narrative: Obese white female sitting up in a chair at the bedside appears comfortable, nontoxic, pleasant General Appearance: cooperative, comfortable, well kempt and well developed Orientation / Consciousness: awake Nutritional Appearance: obese other (BMI 30) HEENT normocephalic, head/scalp atraumatic, hearing grossly normal bilaterally and moist oral mucous membranes HEENT Narrative: No thrush, Mallampati two Eyes PERRL, EOMs intact bilaterally and conjunctivae normal Eyes Narrative: No scleral icterus Neck no lymphadenopathy, supple and no JVD Neck Narrative: Trachea midline, no thyroid enlargement Resp normal respiratory effort, no retractions, no use of accessory muscles and clear to auscultation bilaterally Resp Narrative: Mildly diminished but clear Auscultation: Negative for crackles, rales, rhonchi or wheezes Cardio regular rate, regular rhythm, S1 normal heart sound, S2 normal heart sound, no murmurs, no rub, no gallops, no clicks and no JVD GI normal to inspection, nondistended, normoactive bowel sounds, soft to palpation, non-tender and non-distended Extremity normal to inspection and no clubbing, cyanosis or edema Skin no rashes or lesions noted, no wounds, skin turgor normal and no jaundice Neuro oriented x3, CN's II-XII intact bilaterally, moves all extremities and no focal motor deficits Sensorium / Orientation: awake and alert Speech: speech normal Psych affect normal Weight / BMI Weight Weight: 89.4 kg Body Mass Index (BMI) 29.9 ABG / Lab / Microbiology Data Result Diagrams: 01/31/21 07:20 01/31/21 07:20 Microbiology: Microbiology 01/29/21 15:22 Blood Culture (Wb) - Anticubital Left Blood Culture - Preliminary No growth in 48 hours. 01/29/21 14:36 Blood Culture (Wb) - Anticubital Right Blood Culture - Pr eliminary No growth in 48 hours. 01/29/21 14:38 Nasal Secretion SARS-CoV-2 Antigen (Rapid) - Final SARS-CoV-2 (COVID 19) D/C Instructions Discharge Diet: Low fat / Low cholesterol Discharge Activity: Return to Normal Activity Return to work on: 02/11/21 Meaningful Use Info Meaningful Use Diagnoses (Choose all that apply): None applicable Discharge Plan Admission Admit Date/Time: 01/29/21 16:12 Attending Provider: Chandrika Mckeon Primary Care Provider: Jen No Instructions Additional Instructions / Restrictions: 1. Please quarantine until 02/10/2021 2. Please complete Decadron--> six more days with next dose 02/03/2021 3. Recommend follow-up with your primary care physician after you are out of quarantine 4. Recommend vaccination after you're out of quarantine if you desire Discharge Orders/Prescriptions Prescriptions: New dexamethasone [Decadron] 6 mg tablet 6 mg PO DAILY Qty: 6 RF: 0 Continued atorvastatin 20 MG tablet 20 mg PO QHS RF: 0 atenolol 25 MG tablet 25 mg PO DAILY RF: 0 tramadol 50 MG tablet 50 mg PO Q6H PRN PRN (Reason: Pain) RF: 0 zolmitriptan [Zomig] 5 MG tablet 5 mg PO DAILY PRN PRN (Reason: Migraine Headache) RF: 0 ergocalciferol (vitamin D2) [Vitamin D2] 1,250 mcg (50,000 unit) capsule 50,000 unit PO FR RF: 0 pregabalin [Lyrica] 100 mg Capsule 100 mg PO TID RF: 0 thyroid (pork) [COLLISION TECHNICIAN Thyroid] 60 mg tablet 60 mg PO DAILY RF: 0 hydroxychloroquine 200 mg tablet 200 mg PO BID RF: 0 Referrals / Follow Up: Jen No MD [Primary Care Provider] - Within 2 Weeks Disposition Disposition (needs filled in before D/C Order can be placed): Home, Self Care Charges/Coding Visit Charges Inpatient E&M: 52332 Disch Hosp
== END 2021-02-02 13:52 | disposition home or self-care (01) | DRG 871 ==
LOC: ED 15:38 → MS3 17:00
PROVIDERS: Physician Assistant; Admitting Provider Internal Medicine; Emergency Provider Emergency Medicine; PCP Family Medicine; Visit Provider Internal Medicine
DX: A41.89 Other specified sepsis (principal); U07.1 COVID-19; J12.82 Pneumonia due to coronavirus disease 2019; J96.01 Acute respiratory failure with hypoxia; I10 Essential (primary) hypertension; E66.9 Obesity, unspecified; E78.5 Hyperlipidemia, unspecified; E03.9 Hypothyroidism, unspecified; G62.9 Polyneuropathy, unspecified; M06.9 Rheumatoid arthritis, unspecified; Z87.442 Personal history of urinary calculi; Z68.30 Body mass index [BMI] 30.0-30.9, adult; Z66 Do not resuscitate; E78.00 Pure hypercholesterolemia, unspecified; J98.01 Acute bronchospasm
CPT/HCPCS: 36415; 71045; 80048; 80053; 83605; 85025; 85027; 87040; 87426; 93005; 99285; J7030; J7040; J7050; A4216

== ENCOUNTER → 2021-02-25 09:07 | Outpatient (CLI) | payer OTHER, SELFPAY ==
--- NOTE | 2021-02-25 09:09 | BI_ITS ---
MAMMOGRAPHY - BILATERAL SCREENING 3-D TOMOSYNTHESIS REASON FOR EXAM: Female, 65 years old. SCREENING PERTINENT HISTORY: No significant family history. TECHNIQUE: 2-D mammograms and 3-D Tomosynthesis of the breast (s) were performed. CAD was performed. COMPARISON: 02/23/2020 FINDINGS: The breast composition is composed of scattered fibroglandular density. Scattered benign calcifications are seen. No dense spiculated masses or suspicious microcalcifications are identified. No architectural distortion is identified. There is no skin thickening or retraction. There has been no significant change since the prior study. BI/SCREENING MAMM (CAD), BILAT IMPRESSION: No mammographic signs of malignancy. Routine yearly mammograms recommended. ASSESSMENT CATEGORY: BIRADS Category 1: Negative. A letter regarding these results will be sent to the patient by the facility within 30 days. FOLLOW UP RECOMMENDATION: Yearly follow up mammogram recommended. (A) Approximately 10% of breast cancers are not detected by mammography. A normal mammogram should not delay biopsy of a clinically suspicious abnormality. Electronically Signed: John Marsh MD at 11:27 EST Tel , Service support ,
[2021-02-25 12:18] LABS: Estradiol 76.7 pg/mL; Free T3 3.3 pg/mL (2.18-3.98); T4 Total, Thyroxin 7.4 ug/dL (4.8-13.9)
== END ==
PROVIDERS: PCP Family Medicine; Referring Provider Family Medicine; Visit Provider Family Medicine
DX: Z12.31 Encounter for screening mammogram for malignant neoplasm of breast (principal); N95.1 Menopausal and female climacteric states; N94.10 Unspecified dyspareunia; R68.82 Decreased libido; E07.9 Disorder of thyroid, unspecified; R53.83 Other fatigue
CPT/HCPCS: 36415; 77067; 82670; 83001; 84403; 84436; 84443; 84481

== ENCOUNTER → 2021-07-15 | Outpatient (CLI) | payer MEDICARE, SELFPAY ==
[2021-07-15 10:38] LABS: Absolute Lymphocyte Count 2.54 X10^3/uL (0.83-4.51); Absolute Neutrophil Count 3.2 X10^3/uL (2.0-7.7); Basophil# 0.04 X10^3/uL; Basophil% 0.6 % (0-1); Eosinophil# 0.12 X10^3/uL; Eosinophils% 1.8 % (0-5); Hematocrit 44.5 % (37-47); Hemoglobin 14.3 g/dL (12.0-15.0); Lymphocyte # 2.54 X10^3/ul (0.83-4.51); Lymphocyte % 38.5 % (19-41); Mean Corp Hgb Conc 32.1 g/dL (32-36); Mean Corpuscular Hgb 29.5 pg (27.0-32.0); Mean Corpuscular Volume 91.8 fL (81-99); Mean Platelet Vol. 11.1 fl (6.2-12.0); Monocyte# 0.71 X10^3/uL; Monocyte% 10.8 % (0-10); NRBC Flagged by Analyzer 0 % (0-5); Neutrophil # 3.17 X10^3/uL (2.7-7.7); Platelet Count 281 K/mm3 (150-450); RBC Distribution Width CV 12.6 % (11.6-14.6); RBC Distribution Width SD 42.7 fl (35.1-43.9); Red Blood Count 4.85 M/mm3 (4.2-5.4); White Blood Count 6.6 K/mm3 (4.4-11.0)
[2021-07-15 11:33] LABS: ALB/GLOB Ratio 0.9 RATIO (0.9-2.4); AST(SGOT) 16 U/L (15-37); Alanine Aminotransfer ALT/SGPT 27 U/L (13-56); Albumin, Serum 3.3 g/dL (3.2-5.0); Alkaline Phosphatase 72 U/L (45-117); Anion Gap 8 (5-15); BUN 17 mg/dL (7-18); BUN/Creat Ratio 24.8 RATIO (10-20); Chloride 106 mmol/L (98-107); Creatinine, Serum 0.69 mg/dL (0.55-1.02); EST Glomerular Filtration Rate 91 mL/min (>60); Est Glom Filt Rate - Afr Amer 111 mL/min (>60); Globulin 3.5 g/dL (2.2-4.2); Glucose 99 mg/dL (74-106); Potassium 3.9 mmol/L (3.5-5.1); Protein, Total 6.8 g/dL (6.4-8.2); Sodium Level 140 mmol/L (136-145)
== END | disposition home or self-care (01) ==
LOC: LAB 09:14
PROVIDERS: PCP Family Medicine; Visit Provider Internal Medicine Rheumatology
DX: M06.4 Inflammatory polyarthropathy (principal); M79.7 Fibromyalgia; M70.62 Trochanteric bursitis, left hip; K76.0 Fatty (change of) liver, not elsewhere classified; F32.89 Other specified depressive episodes; F41.8 Other specified anxiety disorders; E78.5 Hyperlipidemia, unspecified; G43.809 Other migraine, not intractable, without status migrainosus; M15.9 Polyosteoarthritis, unspecified
CPT/HCPCS: 36415; 80053; 85025

== ENCOUNTER → 2021-11-26 | Outpatient (CLI) | payer MEDICARE, SELFPAY ==
--- NOTE | 2021-11-26 07:45 | MRI_ITS ---
STUDY: MRI CERVICAL SPINE WITHOUT CONTRAST REASON FOR EXAM: Female, 66 years old. IDIOPATHIC PERIPHERAL NEUROPATHY, neck pain TECHNIQUE: Standardized fat and water weighted pulse sequences were obtained in the sagittal and axial planes. COMPARISON: None FINDINGS: Normal foramen magnum and brainstem-cervical cord junction. Normal craniovertebral junction. Normal anterior atlantoaxial articulation. Normal odontoid process. Normal cervical lordosis. Normal vertebral bodies and posterior osseous elements. C2-3: Normal endplates. Normal disc height, signal and morphology. Normal central canal and intervertebral neural foramina. C3-4: Endplate spondylosis. Central and paracentral disc bulge. Degenerative changes of the bilateral facet joints and uncovertebral joints. Moderate narrowing of the central canal and the bilateral intervertebral neural foramina. C4-5, C5-6, C6-7: Endplate spondylosis. Central and paracentral disc bulge. Degenerative changes of the bilateral facet joints and uncovertebral joints. Sodium narrowing of the central canal and the bilateral intervertebral neural foramina. C7-T1: Normal endplates. Normal disc height, signal and morphology. Normal central canal and intervertebral neural foramina. Normal cervical cord. Normal visualized soft tissue structures. MRI/Spine Cervical (Routine) IMPRESSION: Multilevel degenerative changes, as described above. Electronically Signed: Martha Arzola MD at 0:20 EDT ,
== END | disposition home or self-care (01) ==
PROVIDERS: PCP Family Medicine; Referring Provider Psychiatry & Neurology Neurology; Visit Provider Psychiatry & Neurology Neurology
DX: G60.9 Hereditary and idiopathic neuropathy, unspecified (principal)
CPT/HCPCS: 72141

== ENCOUNTER → 2022-01-15 | Outpatient (CLI) | payer MEDICARE, SELFPAY ==
[2022-01-15 10:02] LABS: Absolute Lymphocyte Count 4.13 X10^3/uL (0.83-4.51); Absolute Neutrophil Count 4.6 X10^3/uL (2.0-7.7); Basophil# 0.05 X10^3/uL; Basophil% 0.5 % (0-1); Hematocrit 48.1 % (37-47); Hemoglobin 16.2 g/dL (12.0-15.0); Lymphocyte # 4.13 X10^3/ul (0.83-4.51); Lymphocyte % 42.2 % (19-41); Mean Corp Hgb Conc 33.7 g/dL (32-36); Mean Corpuscular Hgb 31.2 pg (27.0-32.0); Mean Corpuscular Volume 92.7 fL (81-99); Mean Platelet Vol. 10.6 fl (6.2-12.0); Monocyte# 0.71 X10^3/uL; Monocyte% 7.3 % (0-10); NRBC Flagged by Analyzer 0 % (0-5); Neutrophil # 4.64 X10^3/uL (2.7-7.7); Neutrophil % 47.5 % (47-70); Platelet Count 268 K/mm3 (150-450); RBC Distribution Width CV 13.2 % (11.6-14.6); RBC Distribution Width SD 44.9 fl (35.1-43.9); Red Blood Count 5.19 M/mm3 (4.2-5.4); White Blood Count 9.8 K/mm3 (4.4-11.0)
[2022-01-15 10:37] LABS: ALB/GLOB Ratio 1.6 RATIO (0.9-2.4); AST(SGOT) 19 U/L (15-37); Alanine Aminotransfer ALT/SGPT 31 U/L (13-56); Albumin, Serum 4.2 g/dL (3.2-5.0); Alkaline Phosphatase 96 U/L (45-117); Anion Gap 7 (5-15); BUN 16 mg/dL (7-18); BUN/Creat Ratio 21.8 RATIO (10-20); Calcium,Total 9.7 mg/dL (8.5-10.1); Chloride 104 mmol/L (98-107); Creatinine, Serum 0.73 mg/dL (0.55-1.02); EST Glomerular Filtration Rate 84 mL/min (>60); Est Glom Filt Rate - Afr Amer 102 mL/min (>60); Globulin 2.7 g/dL (2.2-4.2); Glucose 93 mg/dL (74-106); Potassium 4.4 mmol/L (3.5-5.1); Protein, Total 6.9 g/dL (6.4-8.2); Sodium Level 139 mmol/L (136-145)
== END | disposition home or self-care (01) ==
PROVIDERS: PCP Family Medicine; Referring Provider Internal Medicine Rheumatology; Visit Provider Internal Medicine Rheumatology
DX: M06.4 Inflammatory polyarthropathy (principal); M79.7 Fibromyalgia; M15.9 Polyosteoarthritis, unspecified; M70.62 Trochanteric bursitis, left hip; K76.0 Fatty (change of) liver, not elsewhere classified; F32.89 Other specified depressive episodes; F41.9 Anxiety disorder, unspecified; E78.5 Hyperlipidemia, unspecified; G43.809 Other migraine, not intractable, without status migrainosus
CPT/HCPCS: 36415; 80053; 85025

== ENCOUNTER → 2022-03-03 | Outpatient (CLI) | payer MEDICARE, SELFPAY ==
--- NOTE | 2022-03-03 06:43 | MRI_ITS ---
EXAM: MR LUMBAR SPINE WITHOUT INTRAVENOUS CONTRAST CLINICAL INDICATION: RADICULOPATHY TECHNIQUE: Multiplanar and multisequence MR images of the lumbar spine without intravenous contrast. This report was created using [employer] report LEHR technology. COMPARISON: None. FINDINGS: VERTEBRAE: Normal. Vertebral body heights are preserved. Normal vertebral bodies and posterior elements. Normal alignment. No spondylolisthesis. There is preservation of the normal lumbar lordosis. SPINAL CORD: Normal. Normal position and signal intensity of the conus medullaris. SOFT TISSUES: Normal. DISCS/SPINAL CANAL/NEURAL FORAMINA: L1-L2: Normal. Normal disc height and morphology. Normal spinal canal and lateral recesses. Normal neuroforamina. L2-3: Mild disc space narrowing. Disc osteophyte complex causes mild compression of the thecal sac. Facet arthropathy present. No significant impingement on the neural foramina. L3-4: Mild disc bulging, ligamentous hypertrophy and prominent facet arthropathy resulting in mild impression on thecal sac and mild narrowing of the neural foramina. L4-5: Mild anterior listhesis likely related to disc degeneration prominent facet arthropathy. Mild disc protrusion and facet arthropathy results in minimal impression on the thecal sac and moderate neural foraminal narrowing. L5-S1: Prominent disc space narrowing and bony hypertrophy. Disc osteophyte prominence and prominent facet arthropathy results in mild spinal stenosis and moderate to severe neural foraminal narrowing. MRI/Spine Lumbar (Routine) IMPRESSION: Multilevel disc degeneration facet arthropathy without significant spinal stenosis. Prominent neural foraminal narrowing at the L4-5 and L5-S1 levels. Electronically Signed: David Ruiz MD at 7:51 EST ,
== END | disposition home or self-care (01) ==
PROVIDERS: PCP Family Medicine; Referring Provider Psychiatry & Neurology Neurology; Visit Provider Psychiatry & Neurology Neurology
DX: M51.16 Intervertebral disc disorders with radiculopathy, lumbar region (principal); M46.96 Unspecified inflammatory spondylopathy, lumbar region
CPT/HCPCS: 72148

== ENCOUNTER → 2022-03-06 | Outpatient (CLI) | payer MEDICARE, SELFPAY ==
[2022-03-06 12:56] LABS: Cholesterol 202 mg/dL (200); High Density Lipoprotein 42 mg/dL; T4 Total, Thyroxin 7.5 ug/dL (4.8-13.9); Thyroid Stim Hormone (TSH) 0.59 uIU/mL (0.358-3.74); Triglycerides 268 mg/dL; Very Low Density Lipoprotein 54 mg/dL (5-40)
== END | disposition home or self-care (01) ==
LOC: MFPLAB 09:59
PROVIDERS: PCP Family Medicine; Referring Provider Family Medicine; Visit Provider Family Medicine
DX: E78.5 Hyperlipidemia, unspecified (principal); E03.9 Hypothyroidism, unspecified
CPT/HCPCS: 36415; 80061; 84436; 84443

== ENCOUNTER → 2022-04-01 | Outpatient (CLI) | payer MEDICARE, SELFPAY ==
--- NOTE | 2022-04-01 16:07 | BI_ITS ---
MAMMOGRAPHY - BILATERAL SCREENING REASON FOR EXAM: Female, 66 years old. Routine annual screening examination. PERTINENT HISTORY: Non-contributory. TECHNIQUE: Digital bilateral breast ondina (3D mammographic acquisition) in the CC and MLO projections. 2-D mediolateral oblique (MLO) and craniocaudad (CC) views of both breasts were obtained. CAD: Full Field Digital Mammography with Computer Added Detection was performed. COMPARISON: Comparison is made with prior study dated 02/25/2021 and 02/23/2020. FINDINGS: Breast Composition: There are scattered areas of fibroglandular density. There are no dominant masses or suspicious calcifications. Stable benign-appearing bilateral axillary lymph nodes. No other significant abnormalities are identified. There has been no significant change since the prior study. BI/SCRN MAMM (CAD)W/ONDINA BILAT IMPRESSION: Stable bilateral screening mammogram. Yearly follow-up mammogram recommended. (A) ASSESSMENT CATEGORY: BIRADS Category 2: Benign. A letter regarding these results will be sent to the patient by the facility within 30 days. Approximately 10% of breast cancers are not detected by mammography. A normal mammogram should not delay biopsy of a clinically suspicious abnormality. [id number] Electronically Signed: Moreno Lu MD at 8:26 EST ,
--- NOTE | 2022-04-01 16:10 | BD_ITS ---
STUDY: DUAL ENERGY X-RAY ABSORPTIOMETRY / DXA REASON FOR EXAM: Female, 66 years old. [id number] TECHNIQUE: Bone Mineral Density (BMD) measurements of lumbar spine and bilateral hips were obtained. COMPARISON: Comparison is made with prior study dated 02/23/2020. FINDINGS: Lumbar Spine (L1-L4): g/cm2 (1.031) / T-score (-0.1) / Z-score (1.7) Findings are suggestive of normal bone density with a low fracture risk. Left Femur Total: g/cm2 (0.977) / T-score (0.3) / Z-score (1.6) Left Femoral Neck: g/cm2 (0.774) / T-score (-0.7) / Z-score (0.9) Right Femur Total: g/cm2 (0.862) / T-score (-0.7) / Z-score (0.6) Right Femoral Neck: g/cm2 (0.716) / T-score (-1.2) / Z-score (0.4) The T-Scores on the most recent prior examination were: Lumbar Spine (L1-L4): There has been worsening of bone density since the previous examination. Left Femur Total: which represents an improvement of 6.8%. Right Femur Total: which represents an improvement of 1.7%. BD/Dexa Bone Density Study IMPRESSION: The patient is considered osteopenic as outlined below according to World Federico Organization (WHO) criteria with a low fracture risk. There has been improvement of bone density since the previous examination. Reference Information: The T-score is the number of standard deviations above or below the standard which is normal for young adults at their peak bone mineral density. The World Health Organization (WHO) interprets the T-scores as follows: Above -1 Normal bone density Between -1 and -2.5 Osteopenia Equal to / or below -2.5 Osteoporosis As a practical clinical guideline, osteopenia may be graded as follows: Mild -1 through -1.5 Moderate -1.6 through -2.0 Severe -2.1 through -2.4 The Z-score is the number of standard deviations above or below age-matched controls. A Z-score of less than -1.5 would be considered abnormal. References: 1. NIH Osteoporosis and Related Bone Diseases www osteo.org 2. International Society for Clinical Densitometry www iscd.org 3. National Osteoporosis Foundation www nof.org Electronically Signed: Moreno Lu MD at 13:28 EST ,
== END | disposition home or self-care (01) ==
PROVIDERS: PCP Family Medicine; Visit Provider Family Medicine
DX: Z13.820 Encounter for screening for osteoporosis (principal); Z78.0 Asymptomatic menopausal state; Z12.31 Encounter for screening mammogram for malignant neoplasm of breast
CPT/HCPCS: 77063; 77067; 77080

== ENCOUNTER 2022-05-28 15:00 | Outpatient (RCR) | payer MEDICARE, SELFPAY ==
--- NOTE | 2022-04-28 16:26 | HP.PTEVAL ---
Patient's Visit Information GLORIA DURHAM is a 67 year old F referred to Physical Therapy by Dr. Jen No MD with a diagnosis of Shoulder Pain. Date of Evaluation: 04/28/22 Physical Therapist: Zulma Ha DPT - Visit Plan Frequency: 2x /Week Duration: 4 Weeks Plan: Focus on ROM and scapular s/s. HEP Given IE: table walk aways, standing cane abd, supine cane flexion - Subjective Left shoulder pain that started in the beginning of the year-insidious onset. Pain is located in the anterior shoulder and radiates down to the deltoid and back into the shoulder blade. Went to [facility] and they diagnosed her with frozen shoulder- she can move it in any position but it hurts and is slow. Agg: reaching any direction Worst: 02/08 when she uses it. 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 Eases: Tramadol Best: 06/09. Describes the pain as pulsing- when she moves its a sharp pain. No pain that radiates past the elbow. No issues with finger dexterity of link trainer. No SUAREZ, blurred vision or dizziness. No neck pains. Right hand dominate. Sleep: disturbed- usually a left side sleeper so she forces herself to sleep on the right and its painful. Sleeps on a pool noodle and pillow. No neck issues. She has had x-rays of her neck but not shoulder. She does see a neurologist for her neck- [facility]- Dr. Christianson- he wanted her to see Dr. Kimbrough who said she is not ready to do anything for her neck. 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 She plans to get heavy in it May 22 and will need to do some lifting. 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 Gait: dec arm swing and trunk rotation. Palpation: not tender to touch. ROM: Elbow/Wrist/Hand: WFL, Shoulder: AROM: Flexion: 90 degrees Abd: 90 degrees, IR: to belt, ER: 40 degrees pain with flexion and abduction in tears. PROM: Flexion: 150 degrees, Abd: 125 degrees, IR/ER: WFL- after PROM/AAROM exercises: AROM Flexion: 160 degrees, abd: 170 degrees with a 2/10 pain. Strength: Elbow: 5/5 with pain, Flexion/Abd: 3+/5 with pain, IR/ER: 4+/5 at neutral, Extn: 4+/5 - Balance/Special Test Scores Quick DASH Score: 43.1800 - Goals Goal 1:: Patient will be I with HEP and progression Goal Time Frame: 4-6 Weeks Goal 2:: Patient will maintain proper posture t/o tx session to demo increased scap s/s Goal Time Frame: 4-6 Weeks Goal 3:: Patient will demo full AROM of the left shoulder Goal Time Frame: 4-6 Weeks Goal 4:: Patient will report 80% better. Goal Time Frame: 4-6 Weeks - Rehabilitation Potential Physical Therapy Diagnosis: Patient presents with hypomobility- she has decreased UE ROM, scapular strength/stabilization and muscular endurance leading to poor posture and increased pain with ADL's. Rehabilitation Potential: Fair - Anticipated Interventions Patient/Client Instruction: Educate patient on: Benefits of Fitness Program Therapeutic Exercise to Include: Strength training, Endurance training, Coordination, Agility training, Body mechanics, Postural training, Flexibilty training, Gait and locomotor training, Neuromotor development, Relaxation training, via Neurocom Balance Mas, Passive ROM, Dynamic Lumbar Stabilization, Scapular Strength/Stabilization For the Purpose of:: To improve muscle performance and motor function TENS: Yes Cryotherapy (ice pack, ice massage): Yes Thermo therapy (hot pack): Yes Thank you for the opportunity to evaluate your patient. For Medicare and Medicare HMO plans, please review the plan of care and approve it. It will need to be FAXED BACK to us at [phone] for Medicare purposes. For Medicare only, by signing this I certify the plan of care. Please let me know if there are questions or concerns regarding this plan of care. Physician Signature: Date:
--- NOTE | 2022-05-28 16:02 | HP.PTDCSUM ---
It has been my pleasure to treat GLORIA DURHAM referred by Dr. Jen No MD, with the diagnosis of Shoulder Pain for a total of 9 visit(s). Discharge Date: Please see the following information for a summary of their discharge status. Subjective: Patient reports that she is very pleased with it. She has less pain and more function. Her ROM has increased and she bought pulleys and plans to do them at home. She is able to use the shoulder a lot more. Sleep: has slept through the night the last 2 nights. L SH Pain Intensity (Out of 10): 0 % Improvement: 80 Objective/Function: Posture: FH, RS- increased guarding of the left UE. Gait: good arm swing and trunk rotation Palpation: not tender to touch. ROM: Elbow/Wrist/Hand: WFL, Shoulder: AROM: FWFL with the exception of IR: to belt line Strength: Elbow: 5/5 , Flexion/Abd: 4/5 with pain, IR/ER: 4+/5 at neutral, Extn: 4+/5 Goal 1:: Patient will be I with HEP and progression Goal Progress: Goal Met Goal 2:: Patient will maintain proper posture t/o tx session to demo increased scap s/s Goal Progress: Goal Met Goal 3:: Patient will demo full AROM of the left shoulder Goal Progress: Progressing Goal 4:: Patient will report 80% better. Goal Progress: Goal Met Plan: 05/27/22: Discharge to I HEP- gave bands and print outs. Focus on ROM and scapular s/s If there are questions or concerns regarding this patient's physical therapy, please feel free to call me at [phone]. Thank you for the referral of this patient. Sincerely, Zulma Ha, DPT Balance/Gait/Functional tests - Balance/Special Test Scores Quick DASH Score: 9.0900
== END 2022-05-28 19:00 | disposition home or self-care (01) ==
LOC: PT 15:00
PROVIDERS: PCP Family Medicine; Referring Provider Family Medicine; Visit Provider Family Medicine
DX: M75.100 Unspecified rotator cuff tear or rupture of unspecified shoulder, not specified as traumatic (principal)
CPT/HCPCS: 97110; 97162; 97164

== ENCOUNTER → 2022-06-04 | Outpatient (CLI) | payer MEDICARE, SELFPAY ==
[2022-06-04 13:29] LABS: Basophil# 0.05 X10^3/uL; Basophil% 0.5 % (0-1); Eosinophil# 0.09 X10^3/uL; Eosinophils% 0.9 % (0-5); Hematocrit 45.6 % (37-47); Hemoglobin 15.1 g/dL (12.0-15.0); Mean Corp Hgb Conc 33.1 g/dL (32-36); Mean Corpuscular Hgb 30.7 pg (27.0-32.0); Mean Corpuscular Volume 92.7 fL (81-99); Mean Platelet Vol. 10.9 fl (6.2-12.0); Monocyte# 0.68 X10^3/uL; Monocyte% 7.2 % (0-10); NRBC Flagged by Analyzer 0 % (0-5); Neutrophil # 5.03 X10^3/uL (2.7-7.7); Neutrophil % 53.1 % (47-70); Platelet Count 259 K/mm3 (150-450); RBC Distribution Width CV 12.9 % (11.6-14.6); RBC Distribution Width SD 44.1 fl (35.1-43.9); Red Blood Count 4.92 M/mm3 (4.2-5.4); White Blood Count 9.5 K/mm3 (4.4-11.0)
[2022-06-04 14:03] LABS: ALB/GLOB Ratio 1.3 RATIO (0.9-2.4); AST(SGOT) 22 U/L (15-37); Alanine Aminotransfer ALT/SGPT 28 U/L (13-56); Albumin, Serum 3.8 g/dL (3.2-5.0); Alkaline Phosphatase 74 U/L (45-117); Anion Gap 6 (5-15); BUN 16 mg/dL (7-18); BUN/Creat Ratio 19.1 RATIO (10-20); Chloride 106 mmol/L (98-107); Creatinine, Serum 0.84 mg/dL (0.55-1.02); EST Glomerular Filtration Rate 72 mL/min (>60); Est Glom Filt Rate - Afr Amer 87 mL/min (>60); Globulin 2.9 g/dL (2.2-4.2); Glucose 98 mg/dL (74-106); Potassium 4.1 mmol/L (3.5-5.1); Protein, Total 6.7 g/dL (6.4-8.2); Sodium Level 138 mmol/L (136-145)
== END | disposition home or self-care (01) ==
LOC: LAB 12:51
PROVIDERS: PCP Family Medicine; Referring Provider Internal Medicine Rheumatology; Visit Provider Internal Medicine Rheumatology
DX: M06.4 Inflammatory polyarthropathy (principal); M79.7 Fibromyalgia; M15.9 Polyosteoarthritis, unspecified; M70.62 Trochanteric bursitis, left hip; K76.0 Fatty (change of) liver, not elsewhere classified; F32.89 Other specified depressive episodes; F41.8 Other specified anxiety disorders; E78.5 Hyperlipidemia, unspecified; G43.809 Other migraine, not intractable, without status migrainosus
CPT/HCPCS: 36415; 80053; 85025

== ENCOUNTER 2022-09-10 13:30 | Outpatient (RCR) | payer MEDICARE, SELFPAY ==
--- NOTE | 2022-09-08 16:47 | HP.PTEVAL_ITS ---
Patient's Visit Information Visit Information Visit Information: GLORIA DURHAM is a 67 year old F referred to Physical Therapy by Dr. David Roberson MD with a diagnosis of PAIN IN LEFT HIP ,WEAKESS ,TROCHANTERIC BURSITIS. Date of Evaluation: 09/08/22 Physical Therapist: Mychal Padilla, PT, Cert MDT, OCS Visit Plan Frequency: 2-3x /Week Duration: 4-6 Weeks Plan: PT INTERVTIONS HIP/QUADS/HAMS STRENGTHENING ,FUNCTIONAL STRENGTHNEING ,CORE STRENGTHENING AND MODALTIES Subjective Subjective: This 67 y/o female presents to physical therapy with left hip pain ,bursitis. This patient has left hip pain ~ 3years ago with symptoms progressively worsen past [address] Carrasco referred to DR Roberson x-rays - DJD . Patient has injection in hip overall years by RA . Pain located buttock, lateral hip to lateral knee. Aggravating factors walking standing and stairs are painful. Alleviating factors tramadol and over counter inbuprofron. Patient denies paresthesia/tingling. Patient affects sleeping. Patient takes sleep aide. Pain increases with job demands and home. Patient pain can affect QOL and function. Patient has h/o back pain with bulging discs /mod severe stenosis L5- S1 had prior MRI . Patient had consult with spinal DR and not bad enough to have surgery. Patient goal to have no pain and job demands. Dr wants to do MRI. 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 Pain Left Hip: Pain Intensity (Out of 10): 6 Pain Intensity Range: 10 Objective Objective: POSTURE: mild forward posture GAIT: ambulates with antalgic gait left side with poor stance time slow sunita PALAPTION: IT BAND ,piriformis tender NEURO: denies paresthesia/tingling ,reflexes L3-4,L4-5,L5-S1 1/3 PROM: hip WNL all planes of motion LUMBAR ROM: flexion min loss ,side glides min loss ,extension WFL MMT: ( peak force) quads 0/5 ,hamstrings 0/5 ,hip flexion /abduction 0/5 left Special Tests L/S Slump test left side: Negative L/S Slump test right side: Negative L/S Left Straight Leg Raise: Negative L/S Right Straight Leg Raise: Negative L Hip Scour: Negative L Hip Quadrant - Intraarticular Pathology: Negative L Hip NGUYEN - Intraarticular Pathology: Negative L Hip FADDIR - Labrum: Negative L Hip Impingement Provocation - Labrum: Negative L Hip Trendelenberg - Glut Medius: Positive L Hip Tosin - IT Band: Negative L Hip Resisted Exernal Derotation Test - GT Pain Syndrome: Negative Balance/Special Test Scores Lower Extremity Functional Score: 17 Goals Goal 1:: I with HEP for hip Goal Time Frame: 4-6 Weeks Goal 2:: Patient to improve gait with less antalgic 70% Goal Time Frame: 4-6 Weeks Goal 3:: Patient to demonstrate 40% improvement with less pain and improved function Goal Time Frame: 4-6 Weeks Goal 4:: Patient to improve peak force of quads/hamstrings/hip by 10 # strength to improve gait Goal Time Frame: 4-6 Weeks Goal 5:: Patient to improve LFES score by 5 points to improve function and gait Goal Time Frame: 4-6 Weeks Rehabilitation Potential Physical Therapy Diagnosis: This patient has left hip pain with poor strength weakness ,difficulty with walking and steps with pain h/o back lumbar stenosis thus benefit from skilled PT Rehabilitation Potential: Good Anticipated Interventions Patient/Client Instruction: Educate patient on: Condition and Plan of Care For the Purpose of:: To decrease pain, To decrease swelling/inflammation, To improve muscle performance and motor function, To increase tolerance to activity/condition/position, To improve ability of physical actions for home/community/work/leisure, To improve health of tissue, To decrease soft tissue restriction and To increase flexibility/ROM Therapeutic Exercise to Include: Strength training, Endurance training, Flexibilty training and Dynamic Lumbar Stabilization Comment: hip/quads/hams For the Purpose of:: To decrease pain, To increase ROM, To improve muscle performance and motor function, To increase tolerance to activity/condition/position, To improve ability of physical actions for home/community/work/leisure, To improve health of tissue, To decrease soft tissue restriction and To increase flexibility/ROM Text: Thank you for the opportunity to evaluate your patient. For Medicare and Medicare HMO plans, please review the plan of care and approve it. It will need to be FAXED BACK to us at [phone] for Medicare purposes. For Medicare only, by signing this I certify the plan of care. Please let me know if there are questions or concerns regarding this plan of care. Physician Signature: Date:
--- NOTE | 2022-10-31 08:58 | HP.PT.NRP ---
Patient Information Patient Information: GLORIA DURHAM was seen in my office for initial evaluation on 09/08/22. The following Plan of Care was established for this patient: POC Established Initial Frequency: 2-3x /Week Initial Duration: 4-6 Weeks Anticipated Interventions Patient/Client Instruction: Educate patient on: Condition and Plan of Care For the Purpose of:: To decrease pain, To decrease swelling/inflammation, To improve muscle performance and motor function, To increase tolerance to activity/condition/position, To improve ability of physical actions for home/community/work/leisure, To improve health of tissue, To decrease soft tissue restriction and To increase flexibility/ROM Therapeutic Exercise to Include: Strength training, Endurance training, Flexibilty training and Dynamic Lumbar Stabilization For the Purpose of:: To decrease pain, To increase ROM, To improve muscle performance and motor function, To increase tolerance to activity/condition/position, To improve ability of physical actions for home/community/work/leisure, To improve health of tissue, To decrease soft tissue restriction and To increase flexibility/ROM Last Seen Last Seen: This patient was last seen in our office . Pertinent comments regarding their Physical therapy will appear below: Patient seen for PT for hip pain and weakness . Patient to f/u with DR Roberson At this point I will be discontinuing this patient from physical therapy. I would be happy to see this patient again in the future if found appropriate by the physician. Thank you! Mychal Padilla, PT, Cert MDT, OCS Balance/Gait/Functional tests Balance/Special Test Scores Lower Extremity Functional Score: 17
== END 2022-09-10 19:00 | disposition home or self-care (01) ==
LOC: PT 13:30
PROVIDERS: PCP Family Medicine; Referring Provider Specialist; Visit Provider Specialist
DX: M25.552 Pain in left hip (principal); R53.1 Weakness; M70.62 Trochanteric bursitis, left hip
CPT/HCPCS: 97110; 97162

== ENCOUNTER → 2022-09-24 | Outpatient (CLI) | payer MEDICARE, SELFPAY ==
--- NOTE | 2022-09-24 07:45 | MRI_ITS ---
INDICATION: Left hip pain and left leg numbness EXAMINATION: MRI - MR Spine Lumbar W/O Contrast TECHNIQUE: Multiplanar and multisequence MR images of the lumbar spine. IV Contrast Dosage and Agent: None. COMPARISON: 03/03/2022 FINDINGS: VERTEBRAE: Vertebral body heights are preserved. No acute fracture or pathologic marrow replacement. VERTEBRAL ALIGNMENT: Stable 4 mm spondylolisthesis at L4-5. There is preservation of the normal lumbar lordosis. CORD: Normal position and signal intensity of the conus medullaris. L1/L2: Normal disc height and morphology. Normal spinal canal, lateral recesses and neuroforamina. L2/L3: Mild loss of disc space height. Circumferential annular bulge encroaches minimally on the thecal sac. No significant foraminal stenosis. L3/L4: Normal disc space height. Mild circumferential annular bulge. Combined with post trauma hypertrophy there is mild bilateral foraminal stenosis. No significant central stenosis. L4/L5: Loss of normal disc space height. Combination of spondylolisthesis and posterior element hypertrophy produces mild central and moderate bilateral foraminal stenosis, more severe left side than right. L5/S1: Loss of disc space height. Circumferential annular bulge and posterior element hypertrophy produce mild central and moderate bilateral foraminal stenosis, left side more severe than right. SOFT TISSUES: Unremarkable. MRI/Spine Lumbar (Routine) IMPRESSION: Multilevel degenerative disc disease with multilevel central and foraminal stenoses as above. Findings most severe at L4-5 and L5-S1. Electronically Signed: Gerson Raza MD at 22:52 EDT ,
== END | disposition home or self-care (01) ==
LOC: MRI 07:50
PROVIDERS: PCP Family Medicine; Referring Provider Psychiatry & Neurology Neurology; Visit Provider Psychiatry & Neurology Neurology
DX: G95.9 Disease of spinal cord, unspecified (principal)
CPT/HCPCS: 72148

== ENCOUNTER → 2023-01-14 | Outpatient (CLI) | payer MEDICARE, SELFPAY ==
[2023-01-14 10:28] LABS: Absolute Lymphocyte Count 3.45 X10^3/uL (0.83-4.51); Absolute Neutrophil Count 4.4 X10^3/uL (2.0-7.7); Basophil# 0.04 X10^3/uL; Basophil% 0.5 % (0-1); Eosinophil# 0.09 X10^3/uL; Hemoglobin 15.4 g/dL (12.0-15.0); Lymphocyte # 3.45 X10^3/ul (0.83-4.51); Lymphocyte % 39.2 % (19-41); Mean Corp Hgb Conc 32.8 g/dL (32-36); Mean Corpuscular Volume 94.6 fL (81-99); Mean Platelet Vol. 11.1 fl (6.2-12.0); Monocyte# 0.78 X10^3/uL; Monocyte% 8.9 % (0-10); NRBC Flagged by Analyzer 0 % (0-5); Neutrophil # 4.43 X10^3/uL (2.7-7.7); Neutrophil % 50.2 % (47-70); Platelet Count 276 K/mm3 (150-450); RBC Distribution Width CV 12.6 % (11.6-14.6); RBC Distribution Width SD 43.8 fl (35.1-43.9); Red Blood Count 4.97 M/mm3 (4.2-5.4); White Blood Count 8.8 K/mm3 (4.4-11.0)
[2023-01-14 10:56] LABS: ALB/GLOB Ratio 1.2 RATIO (0.9-2.4); AST(SGOT) 17 U/L (15-37); Alanine Aminotransfer ALT/SGPT 32 U/L (13-56); Albumin, Serum 3.8 g/dL (3.2-5.0); Alkaline Phosphatase 73 U/L (45-117); Anion Gap 7 (5-15); BUN 14 mg/dL (7-18); BUN/Creat Ratio 15.8 RATIO (10-20); Calcium,Total 8.8 mg/dL (8.5-10.1); Chloride 110 mmol/L (98-107); Creatinine, Serum 0.89 mg/dL (0.55-1.02); EST Glomerular Filtration Rate 68 mL/min (>60); Est Glom Filt Rate - Afr Amer 82 mL/min (>60); Globulin 3.1 g/dL (2.2-4.2); Glucose 91 mg/dL (74-106); Potassium 4.7 mmol/L (3.5-5.1); Protein, Total 6.9 g/dL (6.4-8.2); Sodium Level 144 mmol/L (136-145)
== END | disposition home or self-care (01) ==
LOC: LAB 10:06
PROVIDERS: PCP Family Medicine; Referring Provider Internal Medicine Rheumatology; Visit Provider Internal Medicine Rheumatology
DX: M06.4 Inflammatory polyarthropathy (principal); M15.9 Polyosteoarthritis, unspecified; M79.7 Fibromyalgia
CPT/HCPCS: 36415; 80053; 85025

== ENCOUNTER → 2023-04-10 | Outpatient (CLI) | payer MEDICARE, SELFPAY ==
--- NOTE | 2023-04-10 07:16 | BI_ITS ---
MAMMOGRAPHY - BILATERAL SCREENING REASON FOR EXAM: Female, 68 years old. Routine annual screening examination. PERTINENT HISTORY: Non-contributory. TECHNIQUE: Digital bilateral breast ondina (3D mammographic acquisition) in the CC and MLO projections. 2-D mediolateral oblique (MLO) and craniocaudad (CC) views of both breasts were obtained. CAD: Full Field Digital Mammography with Computer Added Detection was performed. COMPARISON: Comparison is made with prior study dated April 01, 2022 and February 25, 2021. FINDINGS: Breast Composition: There are scattered areas of fibroglandular density. There are no dominant masses or suspicious calcifications. Stable benign-appearing bilateral axillary lymph nodes. No other significant abnormalities are identified. There has been no significant change since the prior study. BI/SCRN MAMM (CAD)W/ONDINA BILAT IMPRESSION: Stable bilateral screening mammogram. Yearly follow-up mammogram recommended. (A) ASSESSMENT CATEGORY: BIRADS Category 2: Benign. A letter regarding these results will be sent to the patient by the facility within 30 days. Approximately 10% of breast cancers are not detected by mammography. A normal mammogram should not delay biopsy of a clinically suspicious abnormality. [id number] Electronically Signed: Moreno Lu MD at 8:39 EST ,
== END | disposition home or self-care (01) ==
LOC: OPBI 07:15
PROVIDERS: PCP Family Medicine; Referring Provider Family Medicine; Visit Provider Family Medicine
DX: Z12.31 Encounter for screening mammogram for malignant neoplasm of breast (principal)
CPT/HCPCS: 77063; 77067

== ENCOUNTER → 2023-10-01 | Outpatient (CLI) | payer MEDICARE, SELFPAY ==
[2023-10-01 10:35] LABS: Absolute Lymphocyte Count 3.36 X10^3/uL (0.83-4.51); Basophil# 0.04 X10^3/uL; Basophil% 0.5 % (0-1); Eosinophil# 0.12 X10^3/uL; Eosinophils% 1.5 % (0-5); Hematocrit 42.4 % (37-47); Hemoglobin 13.9 g/dL (12.0-15.0); Lymphocyte # 3.36 X10^3/ul (0.83-4.51); Lymphocyte % 41.3 % (19-41); Mean Corp Hgb Conc 32.8 g/dL (32-36); Mean Corpuscular Volume 94.4 fL (81-99); Mean Platelet Vol. 10.9 fl (6.2-12.0); Monocyte# 0.63 X10^3/uL; Monocyte% 7.7 % (0-10); NRBC Flagged by Analyzer 0 % (0-5); Neutrophil # 3.97 X10^3/uL (2.7-7.7); Neutrophil % 48.8 % (47-70); Platelet Count 270 K/mm3 (150-450); RBC Distribution Width CV 12.4 % (11.6-14.6); RBC Distribution Width SD 43.2 fl (35.1-43.9); Red Blood Count 4.49 M/mm3 (4.2-5.4); White Blood Count 8.1 K/mm3 (4.4-11.0)
[2023-10-01 11:03] LABS: ALB/GLOB Ratio 1.1 RATIO (0.9-2.4); AST(SGOT) 14 U/L (15-37); Alanine Aminotransfer ALT/SGPT 19 U/L (13-56); Albumin, Serum 3.5 g/dL (3.2-5.0); Alkaline Phosphatase 85 U/L (45-117); Anion Gap 3 (5-15); BUN 16 mg/dL (7-18); BUN/Creat Ratio 17.8 RATIO (10-20); Calcium,Total 8.7 mg/dL (8.5-10.1); Chloride 110 mmol/L (98-107); EST Glomerular Filtration Rate 67 mL/min (>60); Est Glom Filt Rate - Afr Amer 80 mL/min (>60); Globulin 3.1 g/dL (2.2-4.2); Glucose 90 mg/dL (74-106); Potassium 4.5 mmol/L (3.5-5.1); Protein, Total 6.6 g/dL (6.4-8.2); Sodium Level 142 mmol/L (136-145)
== END | disposition home or self-care (01) ==
LOC: LAB 09:20
PROVIDERS: PCP Family Medicine; Referring Provider Internal Medicine Rheumatology; Visit Provider Internal Medicine Rheumatology
DX: M06.4 Inflammatory polyarthropathy (principal); Z79.899 Other long term (current) drug therapy; M79.7 Fibromyalgia; M15.9 Polyosteoarthritis, unspecified; M70.62 Trochanteric bursitis, left hip; K76.0 Fatty (change of) liver, not elsewhere classified; F32.89 Other specified depressive episodes; F41.9 Anxiety disorder, unspecified; E78.5 Hyperlipidemia, unspecified; G43.809 Other migraine, not intractable, without status migrainosus
CPT/HCPCS: 36415; 80053; 85025

== ENCOUNTER → 2023-10-09 | Outpatient (CLI) | payer MEDICARE, SELFPAY ==
--- NOTE | 2023-10-09 11:45 | RAD_ITS ---
STUDY: X-RAY CHEST REASON FOR EXAM: Female, 68 years old. Cervical myelopathy. Numbness. TECHNIQUE: Frontal and lateral views of the chest. COMPARISON: January 29, 2021 FINDINGS: Clearing of the previously described interstitial opacities and parenchymal opacities present on the prior study. Lungs are now clear. Stable scattered healed parenchymal granulomatous calcifications. There is no demonstrated pleural abnormality. Normal size heart. Normal mediastinum and philly. Normal visualized pulmonary arteries. Normal visualized aortic arch and descending thoracic aorta. Stable thoracolumbar scoliosis. Normal visualized ribs, clavicles, and shoulders. No abnormality of the visualized soft tissue structures of the upper abdomen. RAD/Chest PA and Lateral IMPRESSION: No active or acute cardiopulmonary disease. Electronically Signed: Alfonzo Stock MD at 9:58 EDT ,
== END | disposition home or self-care (01) ==
LOC: RAD 11:36
PROVIDERS: PCP Family Medicine; Referring Provider Psychiatry & Neurology Neurology; Visit Provider Psychiatry & Neurology Neurology
DX: G95.9 Disease of spinal cord, unspecified (principal); R20.2 Paresthesia of skin
CPT/HCPCS: 71046

== ENCOUNTER → 2023-10-23 | Outpatient (CLI) | payer MEDICARE, SELFPAY ==
--- NOTE | 2023-10-23 08:51 | CDU_ITS ---
Reason For Study: TIA Rt. Velocities/BP Lt. Velocities/BP Prox CCA 81.5/18.2 cm/sec. Prox CCA 81.5/19.2 cm/sec. Mid CCA 76.8/17.3 cm/sec. Mid CCA 83.4/23.9 cm/sec. Dist CCA 68.3/16.3 cm/sec. Dist CCA 55.1/16.3 cm/sec. Prox ICA 58.1/13.9 cm/sec. Prox ICA 49.4/17.3 cm/sec. Mid ICA 46.6/16.3 cm/sec. Mid ICA 82.5/29.6 cm/sec. Dist ICA 75.3/28.6 cm/sec. Dist ICA 95.5/35.3 cm/sec. Rt. ICA/CCA = 0.98. Lt. ICA/CCA = 1.15. Prox ECA 92.5/12.6 cm/sec. Prox ECA 59.8/6.9 cm/sec. Rt. Vert. 41.9/6 cm/sec. Lt. Vert. 45.6/11.6 cm/sec. Right Extracranial There is intimal thickening but no significant atherosclerotic plaque noted in the right common carotid artery. There is homogeneous, smooth atherosclerotic plaque noted in the right internal carotid artery. There is intimal thickening but no significant atherosclerotic plaque noted in the right external carotid artery. Antegrade flow is noted in the right vertebral artery. Left Extracranial There is homogeneous, smooth atherosclerotic plaque noted in the left common carotid artery. There is homogeneous, smooth atherosclerotic plaque noted in the left internal carotid artery. There is intimal thickening but no significant atherosclerotic plaque noted in the left external carotid artery. Antegrade flow is noted in the left vertebral artery. Procedure Carotid Duplex 41032. This is a Carotid Duplex examination using B-mode, color flow and specral Doppler. Exam performed in department. VL/Carotid Duplex Ultrasound Interpretation Summary Mild (<50%) stenosis right extracranial internal carotid. Mild (<50%) stenosis left extracranial internal carotid. Flow within the vertebral arteries is antegrade bilaterally. Ordering Physician: Hector Crow Referring Physician: Jen No M.D. Performed By: Yulissa Fletcher RVT
== END | disposition home or self-care (01) ==
LOC: CVS 08:51
PROVIDERS: PCP Family Medicine; Referring Provider Psychiatry & Neurology Neurology; Visit Provider Psychiatry & Neurology Neurology
DX: R20.2 Paresthesia of skin (principal); G95.9 Disease of spinal cord, unspecified
CPT/HCPCS: 93880

== ENCOUNTER 2024-01-14 16:30 | Outpatient (RCR) | payer MEDICARE, SELFPAY ==
--- NOTE | 2023-08-03 14:15 | HP.PTEVAL ---
Patient's Visit Information Visit Information Visit Information: GLORIA DURHAM is a 68 year old F referred to Physical Therapy by Dr. Jerrod Calderon MD with a diagnosis of Proximal Hamstring Repair July 16, 2023. Date of Evaluation: 08/03/23 Physical Therapist: Zulma Ha DPT Visit Plan Frequency: 2x /Week Duration: 6 Weeks Plan: Proximal Hamstring Repair 07/16/23- Follow [facility] Proximal Hamstring Repair PT Protocol HEP Given: quad set, ankle pumps, TA contraction Subjective Subjective: Patient reports that she had Proximal Hamstring Repair July 16, 2023-she had pain for years prior to surgery- really bad for 2 years- she has very little pain since surgery- more discomfort. She went home directly after surgery- she laid on ice for 3 days. Lives alone but her boyfriend has been able to live with her and help her- he plans to move out when she is able. She has no stairs inside but 3-4 to enter- with a single handrail to enter. She has been using a wheelchair inside or sit on a rolling walker, non weight bearing. She has a shower chair- She fell down one time- last week- slid but landed on her right side. Worst: 1/10 Agg: sitting on the rolling walker Eases: none Best: 0/10. Sleep: bed- no problems. 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 Discomfort is all located in the right buttock- no pain radiating up or down. 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 PMHx: Cancer (76), Meds: asprin, hydrochloro, lyrica, throid, atenolol, progesterone, tramadol, ondansetron, nurtex, adk, spinalactone Objective Objective: Posture: forward head, rounded shoulders- can correct with verbal cues Gait: NWB on the left LE- required CGA for step to with crutches- safer with FWW- no assistance required- preferred w.c ROM: Right: Hip: WNL in all planes without pain Left: Flexion: 45 degrees Extn: 5 degrees with knee bent. Strength: Right: Hip: 4+/5 throughout, Knee: 5/5 Ankle: 5/5. Left: Ankle: 5/5 Core: fair minus- hard to perform TA contraction Girth of Quad: Left: 50cm 6: above Right: 51 cm 6 above Flex: Gastroc: moderate bilateral, Hamstring: right: slight restriction Palpation: slightly tender to touch over glut and greater troch- no pain in lumbar spine. Balance/Special Test Scores Lower Extremity Functional Score: 15 Goals Goal 1:: Patient will be I with HEP and progression Goal Time Frame: 4-6 Weeks Goal 2:: Patient will ambulate >500 feet with normalized gait pattern and no AD as per protocol allows Goal Time Frame: 4-6 Weeks Goal 3:: Patient will asc/desc 8 stairs without HR- as protocol allows Goal Time Frame: 4-6 Weeks Goal 4:: Patient will have equal girth 6 above patella Goal Time Frame: 4-6 Weeks Goal 5:: Patient will report 80% improvement Goal Time Frame: 4-6 Weeks Rehabilitation Potential Physical Therapy Diagnosis: Patient presents s/p hamstring repair- she has decreased LE and core strength/stabilization, ROM, muscular endurance, WB, proprioception, flex leading to abnormal gait and decreased ability to perform ADL's Rehabilitation Potential: Good Anticipated Interventions Patient/Client Instruction: Educate patient on: Benefits of Fitness Program Therapeutic Exercise to Include: Strength training, Endurance training, Balance training, Coordination, Agility training, Body mechanics, Postural training, Flexibilty training, Gait and locomotor training, Neuromotor development, Passive ROM, Active ROM, Dynamic Lumbar Stabilization and Scapular Strength/Stabilization For the Purpose of:: To improve muscle performance and motor function TENS: Yes Thermo therapy (hot pack): Yes Ultrasound (thermal/non thermal): Yes Text: Thank you for the opportunity to evaluate your patient. For Medicare and Medicare HMO plans, please review the plan of care and approve it. It will need to be FAXED BACK to us at [phone] for Medicare purposes. For Medicare only, by signing this I certify the plan of care. Please let me know if there are questions or concerns regarding this plan of care. Physician Signature: Date:
--- NOTE | 2023-10-15 18:04 | HP.PTREVAL_ITS ---
Re-Evaluation Intro: Dr. Jerrod Calderon MD, It has been my pleasure to treat GLORIA DURHAM over the last 22 visits for Proximal Hamstring Repair July 16, 2023 (LEFT). Please see the progress note below for an update on the physical therapy plan of care! Subjective Subjective: I am still limited with house chores and work requirements Objective Objective/Function: L HS pain ranges from 0-8/10 Girth: L quad= 45 cm, R quad= 45 cm Pt is able to ascend and descend 8' stairs, but requires the use of 1 UE Gait: Pt is able to ambulate greater than 680 feet without difficulty Pt is still limited with adl's and work requirements Plan Plan Plan: Cont to progress L HS strengthening at this time Balance/Gait/Functional tests Balance/Special Test Scores Lower Extremity Functional Score: 33 Goals Goals Goal 1:: Patient will be I with HEP and progression Goal Time Frame: 4-6 Weeks Goal Progress: Progressing Goal 2:: Patient will ambulate >500 feet with normalized gait pattern and no AD as per protocol allows Goal Time Frame: 4-6 Weeks Goal Progress: Goal Met Goal 3:: Patient will asc/desc 8 stairs without HR- as protocol allows Goal Time Frame: 4-6 Weeks Goal Progress: Progressing Goal 4:: Patient will have equal girth 6 above patella Goal Time Frame: 4-6 Weeks Goal Progress: Goal Met Goal 5:: Patient will report 80% improvement Goal Time Frame: 4-6 Weeks Goal Progress: Goal Met Anticipated Interventions Anticipated Interventions Patient/Client Instruction: Educate patient on: Benefits of Fitness Program Therapeutic Exercise to Include: Strength training, Endurance training, Balance training, Coordination, Agility training, Body mechanics, Postural training, Flexibilty training, Gait and locomotor training, Neuromotor development, Pas sive ROM, Active ROM, Dynamic Lumbar Stabilization and Scapular Strength/Stabilization For the Purpose of:: To improve muscle performance and motor function TENS: Yes Thermo therapy (hot pack): Yes Ultrasound (thermal/non thermal): Yes Re-Evaluation Ending Re-evaluation ending: Please do not hesitate to contact me at [phone] by phone or if you have questions or concerns regarding this new plan of care! Sincerely, Bebeto Medley, PT, ATC
--- NOTE | 2023-12-11 12:25 | HP.PTREVAL ---
Re-Evaluation Intro: Dr. Jerrod Calderon MD, It has been my pleasure to treat GLOIRA DURHAM over the last 36 visits for Proximal Hamstring Repair July 16, 2023 (LEFT). Please see the progress note below for an update on the physical therapy plan of care! Subjective Subjective: Pt returns today with a new order for R hamstring pain. Pt reports she needs to have surgery on her R HS after having an US performed on R HS and finding a tear in it. Pt reports her L hamstring is doing much better, but now she needs to get both of her hamstrings strong so she can perform her IADL's without being so limited. Pt reports she is limited with house chores such as bending over to pick things up, laundry, and stair negotation. Pt denies tingling or numbness in R LE. Pt reports sleep difficulty at this time secondary to pain. Objective Objective/Function: MMT: R knee flex= 33, hip ext = 26;L knee flex= 21, hip ext= 38 #F R hamstring pain ranges from 0-10/10 90/90 test: L hamstring 15 degree lag, R hamstring 20 degree lag Plan Plan Plan: 12/11/23- B hamstring strengthening, stretching, and core strengthening ex's Balance/Gait/Functional tests Balance/Special Test Scores Lower Extremity Functional Score: 33 Goals Goals Goal 1:: Patient will be I with HEP and progression Goal Time Frame: 4-6 Weeks Goal Progress: Progressing Goal 2:: Patient will ambulate >500 feet with normalized gait pattern and no AD as per protocol allows Goal Time Frame: 4-6 Weeks Goal Progress: Goal Met Goal 3:: Patient will asc/desc 8 stairs without HR- as protocol allows Goal Time Frame: 4-6 Weeks Goal Progress: Progressing Goal 4:: Patient will have equal girth 6 above patella Goal Time Frame: 4-6 Weeks Goal Progress: Goal Met Goal 5:: Patient will report 80% improvement Goal Time Frame: 4-6 Weeks Goal Progress: Goal Met Anticipated Interventions Anticipated Interventions Patient/Client Instruction: Educate patient on: Benefits of Fitness Program Therapeutic Exercise to Include: Strength training, Endurance training, Balance training, Coordination, Agility training, Body mechanics, Postural training, Flexibilty training, Gait and locomotor training, Neuromotor development, Passive ROM, Active ROM, Dynamic Lumbar Stabilization and Scapular Strength/Stabilization For the Purpose of:: To improve muscle performance and motor function TENS: Yes Thermo therapy (hot pack): Yes Ultrasound (thermal/non thermal): Yes Re-Evaluation Ending Re-evaluation ending: Please do not hesitate to contact me at [phone] by phone or if you have questions or concerns regarding this new plan of care! Sincerely, Bebeto Medley, PT, ATC
--- NOTE | 2024-01-14 17:24 | HP.PTDCSUM ---
Discharge Summary D/C summary: It has been my pleasure to treat GLORIA DURHAM referred by Dr. Jerrod Calderon MD, with the diagnosis of Proximal Hamstring Repair July 16, 2023 (LEFT) for a total of 43 visit(s). Discharge Date: Please see the following information for a summary of their discharge status. Subjective Subjective: I am sore by the end of the day Pain L hip: Pain Intensity (Out of 10): 0 R hamstring: Pain Intensity (Out of 10): 0 Overall Improvement % Improvement: 95 Objective Objective/Function: L Hamstring pain ranges from 0-7/10 Pt feels 95% improved Pt is able to ascend and descend 10 stairs without difficulty Pt is able to ambulate greater than 600 feet without difficulty Pt is now able to transition to H & W routine Rx goals achieved Goals Goal 1:: Patient will be I with HEP and progression Goal Progress: Goal Met Goal 2:: Patient will ambulate >500 feet with normalized gait pattern and no AD as per protocol allows Goal Progress: Goal Met Goal 3:: Patient will asc/desc 8 stairs without HR- as protocol allows Goal Progress: Progressing Goal 4:: Patient will have equal girth 6 above patella Goal Progress: Goal Met Goal 5:: Patient will report 80% improvement Goal Progress: Goal Met Plan Plan: Discharge to HEP D/C Information d/c sentence: If there are questions or concerns regarding this patient's physical therapy, please feel free to call me at [phone]. Thank you for the referral of this patient. Sincerely, Bebeto Medley, PT, ATC Balance/Gait/Functional tests Balance/Special Test Scores Lower Extremity Functional Score: 33 Improvement % Improvement: 95
== END 2024-01-14 19:00 | disposition home or self-care (01) ==
LOC: PT 16:30
PROVIDERS: PCP Family Medicine; Referring Provider Orthopaedic Surgery Sports Medicine; Visit Provider Orthopaedic Surgery Sports Medicine
DX: S76.312D Strain of muscle, fascia and tendon of the posterior muscle group at thigh level, left thigh, subsequent encounter (principal)
CPT/HCPCS: 97110; 97140; 97161; 97530

== ENCOUNTER → 2024-03-01 | Outpatient (CLI) | payer MEDICARE, SELFPAY ==
[2024-03-01 09:13] LABS: Absolute Lymphocyte Count 2.23 X10^3/uL (0.83-4.51); Absolute Neutrophil Count 6.3 X10^3/uL (2.0-7.7); Basophil# 0.06 X10^3/uL; Basophil% 0.6 % (0-1); Eosinophil# 0.29 X10^3/uL; Hematocrit 43.6 % (37-47); Hemoglobin 14.3 g/dL (12.0-15.0); Lymphocyte # 2.23 X10^3/ul (0.83-4.51); Lymphocyte % 22.7 % (19-41); Mean Corp Hgb Conc 32.8 g/dL (32-36); Mean Corpuscular Hgb 30.9 pg (27.0-32.0); Mean Corpuscular Volume 94.2 fL (81-99); Monocyte# 0.88 X10^3/uL; NRBC Flagged by Analyzer 0 % (0-5); Neutrophil % 64.2 % (47-70); Platelet Count 241 K/mm3 (150-450); RBC Distribution Width CV 12.2 % (11.6-14.6); RBC Distribution Width SD 42.5 fl (35.1-43.9); Red Blood Count 4.63 M/mm3 (4.2-5.4); White Blood Count 9.8 K/mm3 (4.4-11.0)
[2024-03-01 09:47] LABS: ALB/GLOB Ratio 1.1 RATIO (0.9-2.4); AST(SGOT) 17 U/L (15-37); Alanine Aminotransfer ALT/SGPT 22 U/L (13-56); Albumin, Serum 3.7 g/dL (3.2-5.0); Alkaline Phosphatase 76 U/L (45-117); Anion Gap 5 (5-15); BUN 18 mg/dL (7-18); BUN/Creat Ratio 15.4 RATIO (10-20); Calcium,Total 9.4 mg/dL (8.5-10.1); Chloride 106 mmol/L (98-107); Creatinine, Serum 1.17 mg/dL (0.55-1.02); EST Glomerular Filtration Rate 49 mL/min (>60); Est Glom Filt Rate - Afr Amer 59 mL/min (>60); Globulin 3.5 g/dL (2.2-4.2); Glucose 87 mg/dL (74-106); Potassium 4.1 mmol/L (3.5-5.1); Protein, Total 7.2 g/dL (6.4-8.2); Sodium Level 140 mmol/L (136-145)
== END | disposition home or self-care (01) ==
LOC: LAB 08:56
PROVIDERS: PCP Family Medicine; Referring Provider Internal Medicine Rheumatology; Visit Provider Internal Medicine Rheumatology
DX: M06.4 Inflammatory polyarthropathy (principal); M79.7 Fibromyalgia; M15.9 Polyosteoarthritis, unspecified; Z79.899 Other long term (current) drug therapy
CPT/HCPCS: 36415; 80053; 85025

== ENCOUNTER → 2024-05-20 | Outpatient (CLI) | payer MEDICARE, SELFPAY ==
[2024-05-20 13:15] LABS: Protein, Urine (Random) 6.4 mg/dL (0.0-12.0); Protein:Creat Ratio 49 mg/g CRE (0-200)
[2024-05-20 13:28] LABS: AST(SGOT) 18 U/L (<=31); Alanine Aminotransfer ALT/SGPT 15 U/L (<=34); Anion Gap 11 (5-15); BUN 14 mg/dL (4-19); BUN/Creat Ratio 16.8 RATIO (10-20); Calcium,Total 9.6 mg/dL (7.6-11.0); Carbon Dioxide 24.3 mmol/L (21.0-32.0); Chloride 105 mmol/L (98-108); Creatinine, Serum 0.81 mg/dL (0.70-1.20); EST Glomerular Filtration Rate 79 (>60); Glucose 105 mg/dL (70-99); Potassium 4.7 mmol/L (3.3-5.1); Sodium Level 141 mmol/L (133-145); T4 Total, Thyroxin 5.8 ug/dL (4.8-13.9); Thyroid Stim Hormone (TSH) 0.612 uIU/mL (0.300-4.200)
[2024-05-20 16:09] LABS: Cholesterol 167 mg/dL (<=200); High Density Lipoprotein 43 mg/dL; Low Density Lipoprotein Calc. 89 mg/dL; Triglycerides 176 mg/dL; Very Low Density Lipoprotein 35 mg/dL (5-40)
== END | disposition home or self-care (01) ==
LOC: MFPLAB 10:29
PROVIDERS: PCP Family Medicine; Referring Provider Family Medicine; Visit Provider Family Medicine
DX: E78.5 Hyperlipidemia, unspecified (principal); E03.9 Hypothyroidism, unspecified; I10 Essential (primary) hypertension
CPT/HCPCS: 36415; 80048; 80061; 82570; 84156; 84436; 84443; 84450; 84460

== ENCOUNTER → 2024-05-27 | Outpatient (CLI) | payer MEDICARE, SELFPAY ==
[2024-05-27 10:46] LABS: Absolute Lymphocyte Count 3.16 X10^3/uL (0.83-4.51); Absolute Neutrophil Count 3.8 X10^3/uL (2.0-7.7); Basophil# 0.05 X10^3/uL; Basophil% 0.6 % (0-1); Eosinophil# 0.12 X10^3/uL; Eosinophils% 1.5 % (0-5); Hematocrit 42.8 % (37-47); Hemoglobin 14.2 g/dL (12.0-15.0); Lymphocyte # 3.16 X10^3/ul (0.83-4.51); Lymphocyte % 40.4 % (19-41); Mean Corp Hgb Conc 33.2 g/dL (32-36); Mean Corpuscular Hgb 31.1 pg (27.0-32.0); Mean Corpuscular Volume 93.9 fL (81-99); Mean Platelet Vol. 10.9 fl (6.2-12.0); Monocyte% 8.9 % (0-10); NRBC Flagged by Analyzer 0 % (0-5); Neutrophil # 3.76 X10^3/uL (2.7-7.7); Neutrophil % 48.1 % (47-70); Platelet Count 269 K/mm3 (150-450); RBC Distribution Width SD 44.8 fl (35.1-43.9); Red Blood Count 4.56 M/mm3 (4.2-5.4); White Blood Count 7.8 K/mm3 (4.4-11.0)
[2024-05-27 12:05] LABS: AST(SGOT) 18 U/L (<=31); Alanine Aminotransfer ALT/SGPT 14 U/L (<=34); Albumin, Serum 4.3 g/dL (3.4-4.8); Alkaline Phosphatase 79 U/L (35-104); Anion Gap 14 (5-15); BUN 13 mg/dL (4-19); BUN/Creat Ratio 14.9 RATIO (10-20); Carbon Dioxide 20.5 mmol/L (21.0-32.0); Chloride 105 mmol/L (98-108); Creatinine, Serum 0.85 mg/dL (0.70-1.20); EST Glomerular Filtration Rate 75 (>60); Globulin 2.2 g/dL (2.2-4.2); Glucose 79 mg/dL (70-99); Potassium 4.2 mmol/L (3.3-5.1); Protein, Total 6.5 g/dL (5.9-8.4); Sodium Level 140 mmol/L (133-145)
== END | disposition home or self-care (01) ==
LOC: MTLAB 08:58
PROVIDERS: PCP Family Medicine; Referring Provider Internal Medicine Rheumatology; Visit Provider Internal Medicine Rheumatology
DX: M06.4 Inflammatory polyarthropathy (principal); M79.7 Fibromyalgia; M15.9 Polyosteoarthritis, unspecified; Z79.899 Other long term (current) drug therapy
CPT/HCPCS: 36415; 80053; 85025

== ENCOUNTER → 2024-06-10 | Outpatient (CLI) | payer MEDICARE, SELFPAY ==
--- NOTE | 2024-06-10 09:53 | BI_ITS ---
EXAM: SCRN MAMM (CAD)W/ONDINA BILAT DATE: 06/10/2024 CLINICAL HISTORY: F, Age 69 y/o , SCREENING BREAST CANCER RISK ASSESSMENT: Has not been calculated. TECHNIQUE: Bilateral screening digital breast tomosynthesis with 2D and 3D images. Computer aided detection. COMPARISON: Prior exam(s) dated 04/10/2023 and 04/01/2022. FINDINGS: TISSUE DENSITY: The breast tissue is composed of scattered area of fibroglandular density. Bilateral Breast Mammographic Findings: There are no suspicious masses, suspicious clustered microcalcifications, architectural distortion or secondary signs of malignancy identified in either breast. Benign-appearing round calcifications are seen in both breasts. Benign-appearing axillary and intramammary lymph nodes are seen bilaterally. An 18 mm nodular masslike density in the superior outer, middle 3rd aspect of the right breast is noted and is similar when compared to the prior exams. BI/SCRN MAMM (CAD)W/ONDINA BILAT IMPRESSION: Right Breast: BIRADS 2 BENIGN FINDING. Left Breast: BIRADS 2 BENIGN FINDING. OVERALL FINAL ASSESSMENT: BIRADS 2 BENIGN FINDING RECOMMENDATION: Routine annual follow-up in 1 Year A letter with findings and recommendations will be mailed to the patient. Reading Location: [id number]
== END | disposition home or self-care (01) ==
LOC: OPBD 09:52
PROVIDERS: PCP Family Medicine; Referring Provider Family Medicine; Visit Provider Family Medicine
DX: Z12.31 Encounter for screening mammogram for malignant neoplasm of breast (principal)
CPT/HCPCS: 77063; 77067

== ENCOUNTER → 2024-06-14 | Outpatient (CLI) | payer MEDICARE, SELFPAY ==
--- NOTE | 2024-06-14 08:59 | BD_ITS ---
PROCEDURE: DEXA BONE DENSITY STUDY 06/14/2024 REASON FOR EXAM: F, age 69 y/o . Postmenopausal. TECHNIQUE: DXA scan of the lumbar spine and both hips using make and model. REFERENCE LINKS: ISCD Adult Positions COMPARISON: Comparison is made with prior study dated April 01, 2022. FINDINGS: BMD and T-SCORES Lumbar spine: 1.066 g/cm2, T-Score 0.4 L1 through L4 Change from prior: Improvement by 6.9% Left femoral neck: 0.762 g/cm2, T-Score -0.8 Femoral neck comparison data not recommended for monitoring change. Left total hip: 0.986 g/cm2, T-Score 0.4 Change from prior: Improvement by 0.9% Right femoral neck: 0.743 g/cm2, T-Score -1.0 Femoral neck comparison data not recommended for monitoring change. Right total hip: 0.883 g/cm2, T-Score -0.5 Change from prior: Improvement by 2.5% Fracture Risk Calculation: FRAX (10-year Fracture Risk) Score: FRAX scores should never be reported in a patient with osteoporosis on DEXA or for any patient that is on bone medication. The patient doesmeet the pharmacological treatment recommendations for prevention of osteoporosis BD/Dexa Bone Density Study IMPRESSION: NORMAL T-SCORES. Recommend follow-up as clinically warranted. Reading Location: [place] [id number]
== END | disposition home or self-care (01) ==
LOC: OPBD 08:55
PROVIDERS: PCP Family Medicine; Referring Provider Family Medicine; Visit Provider Family Medicine
DX: N95.9 Unspecified menopausal and perimenopausal disorder (principal)
CPT/HCPCS: 77080

== ENCOUNTER → 2024-08-23 | Outpatient (CLI) | payer MEDICARE, SELFPAY ==
[2024-08-23 12:39] LABS: Absolute Lymphocyte Count 3.61 X10^3/uL (0.83-4.51); Absolute Neutrophil Count 5.3 X10^3/uL (2.0-7.7); Basophil# 0.06 X10^3/uL; Basophil% 0.6 % (0-1); Eosinophil# 0.14 X10^3/uL; Eosinophils% 1.4 % (0-5); Hematocrit 43.1 % (37-47); Hemoglobin 14.4 g/dL (12.0-15.0); Lymphocyte # 3.61 X10^3/ul (0.83-4.51); Lymphocyte % 36.8 % (19-41); Mean Corp Hgb Conc 33.4 g/dL (32-36); Mean Corpuscular Hgb 31.4 pg (27.0-32.0); Mean Corpuscular Volume 93.9 fL (81-99); Mean Platelet Vol. 10.6 fl (6.2-12.0); Monocyte# 0.71 X10^3/uL; Monocyte% 7.2 % (0-10); NRBC Flagged by Analyzer 0 % (0-5); Neutrophil # 5.27 X10^3/uL (2.7-7.7); Neutrophil % 53.7 % (47-70); Platelet Count 277 K/mm3 (150-450); RBC Distribution Width CV 12.5 % (11.6-14.6); RBC Distribution Width SD 42.8 fl (35.1-43.9); Red Blood Count 4.59 M/mm3 (4.2-5.4); White Blood Count 9.8 K/mm3 (4.4-11.0)
[2024-08-23 13:19] LABS: ALB/GLOB Ratio 1.9 RATIO (0.9-2.4); AST(SGOT) 21 U/L (<=31); Alanine Aminotransfer ALT/SGPT 17 U/L (<=34); Alkaline Phosphatase 78 U/L (35-104); Anion Gap 10 (5-15); BUN 13 mg/dL (4-19); Calcium,Total 8.9 mg/dL (7.6-11.0); Carbon Dioxide 24.9 mmol/L (21.0-32.0); Chloride 107 mmol/L (98-108); Creatinine, Serum 0.89 mg/dL (0.70-1.20); EST Glomerular Filtration Rate 70 (>60); Globulin 2.1 g/dL (2.2-4.2); Glucose 106 mg/dL (70-99); Potassium 4.2 mmol/L (3.3-5.1); Protein, Total 6.1 g/dL (5.9-8.4); Sodium Level 141 mmol/L (133-145); Total Bilirubin 0.19 mg/dL (0.00-1.30)
== END | disposition home or self-care (01) ==
LOC: LAB 11:56
PROVIDERS: PCP Family Medicine; Referring Provider Internal Medicine Rheumatology; Visit Provider Internal Medicine Rheumatology
DX: M06.4 Inflammatory polyarthropathy (principal); M79.7 Fibromyalgia; K76.0 Fatty (change of) liver, not elsewhere classified; Z79.899 Other long term (current) drug therapy
CPT/HCPCS: 36415; 80053; 85025

== ENCOUNTER 2024-08-26 10:00 | Outpatient (RCR) | payer MEDICARE, SELFPAY ==
--- NOTE | 2024-04-18 16:34 | HP.PTEVAL_ITS ---
Patient's Visit Information Visit Information Visit Information: GLORIA DURHAM is a 69 year old F referred to Physical Therapy by MAYKEL Mcneil with a diagnosis of R hamstring repair 03/31/24. Date of Evaluation: 04/18/24 Physical Therapist: Bebeto Medley, PT, ATC Visit Plan Frequency: 2x /Week Duration: 6-8 weeks Plan: Follow protocol in chart. No Hamstring stretching for 6 weeks. Subjective Subjective: DOS: 03/31/24. Pt reports she had a R hamstring repair performed at that time. Pt notes she was bending over making beds and folding laundry at that time and gradually noticed pain in her R hamstring. Pt reports she has been completely resting her leg since the date of surgery. Pt reports it is too early to notice any improvements at this time. Pt reports the posterior aspect of her R thigh is numb at this time surrounding where the surgery was performed. Pt reports her pain wakes her up at night. 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 Pt has 4 stairs to enter her house which she has to negotiate one step at a time. 0/10 pain in R hamstring while sitting here at rest, 3/10 pain at worst. Pain R hamstring: Pain Intensity (Out of 10): 0 Pain Intensity Range: 3 Objective Objective: Neuro: B LE sensation is WNL to light touch. ROM: L knee 0-140 ; R knee 0-8-135 degrees MMT: L knee flex= 29, ext= 45 #F. R LE not tested TU seconds Balance/Special Test Scores Lower Extremity Functional Score: 13 Goals Goal 1:: Decrease R hamstring pain x 50% to aid with sleep Goal Time Frame: 6-8 Weeks Goal 2:: Increase R LE strength knee flex and knee ext to equal 90% strength of L LE Goal Time Frame: 6-8 Weeks Goal 3:: Increase R knee extension ROM x 5-8 degrees to aid with decreasing pain. Goal Time Frame: 6-8 Weeks Goal 4:: Perform TUG in under 10 seconds to aid with community mobility Goal Time Frame: 6-8 Weeks Goal 5:: I with HEP Goal Time Frame: 6-8 Weeks Rehabilitation Potential Physical Therapy Diagnosis: Pt has R hamstring pain, weakness, and limited ROM secondary to being s/p R hamstring repair Rehabilitation Potential: Good Anticipated Interventions Patient/Client Instruction: Educate patient on: Condition and Plan of Care For the Purpose of:: To improve self management Therapeutic Exercise to Include: Strength training, Endurance training, Balance training, Flexibilty training, Passive ROM, Active ROM and Dynamic Lumbar Stabilization For the Purpose of:: To decrease pain, To increase ROM and To improve muscle performance and motor function Cryotherapy (ice pack, ice massage): Yes For the Purpose of:: To decrease pain Text: Thank you for the opportunity to evaluate your patient. For Medicare and Medicare HMO plans, please review the plan of care and approve it. It will need to be FAXED BACK to us at [phone] for Medicare purposes. For Medicare only, by signing this I certify the plan of care. Please let me know if there are questions or concerns regarding this plan of care. Physician Signature: Date:
--- NOTE | 2024-05-19 11:49 | HP.PTREVAL ---
Re-Evaluation Intro: MAYKEL Mcneil, It has been my pleasure to treat GLORIA DURHAM over the last 10 visits for R hamstring repair 03/31/24. Please see the progress note below for an update on the physical therapy plan of care! Subjective Subjective: Pt reports she is definitely noticing improvements Objective Objective/Function: R HS pain is 4/10 (pt still has difficulty with sleep at night) R hamstring strength not tested at this time secondary to tissue healing R knee extension ROM: -10 degrees TU sec Plan Plan Plan: 05/19/24- Continue to progress per protocol Balance/Gait/Functional tests Balance/Special Test Scores Lower Extremity Functional Score: 28 Goals Goals Goal 1:: Decrease R hamstring pain x 50% to aid with sleep Goal Time Frame: 6-8 Weeks Goal Progress: Progressing Goal 2:: Increase R LE strength knee flex and knee ext to equal 90% strength of L LE Goal Time Frame: 6-8 Weeks Goal Progress: Progressing Goal 3:: Increase R knee extension ROM x 5-8 degrees to aid with decreasing pain. Goal Time Frame: 6-8 Weeks Goal Progress: Progressing Goal 4:: Perform TUG in under 10 seconds to aid with community mobility Goal Time Frame: 6-8 Weeks Goal Progress: Progressing Goal 5:: I with HEP Goal Time Frame: 6-8 Weeks Goal Progress: Progressing Anticipated Interventions Anticipated Interventions Patient/Client Instruction: Educate patient on: Condition and Plan of Care For the Purpose of:: To improve self management Therapeutic Exercise to Include: Strength training, Endurance training, Balance training, Flexibilty training, Passive ROM, Active ROM and Dynamic Lumbar Stabilization For the Purpose of:: To decrease pain, To increase ROM and To improve muscle performance and motor function Cryotherapy (ice pack, ice massage): Yes For the Purpose of:: To decrease pain Re-Evaluation Ending Re-evaluation ending: Please do not hesitate to contact me at [phone] by phone or if you have questions or concerns regarding this new plan of care! Sincerely, Bebeto Medley, PT, ATC
--- NOTE | 2024-06-23 13:02 | HP.PTREVAL ---
Re-Evaluation Intro: MAYKEL Mcneil, It has been my pleasure to treat GLORIA DURHAM over the last 19 visits for R hamstring repair 03/31/24. Please see the progress note below for an update on the physical therapy plan of care! Subjective Subjective: R hamstring pain is getting better, but still gets really sore Objective Objective/Function: R hamstring pain ranges from 0-9/10 TUG 11.27 sec R knee MMT: flex= 25, ext= 22 #F R knee ROM: 0-5-145 degrees Pt is progressing well with all aspects of PT except for pain. Plan Plan Plan: 06/23/24- Continue to progress per protocol Balance/Gait/Functional tests Balance/Special Test Scores Lower Extremity Functional Score: 32 Goals Goals Goal 1:: Decrease R hamstring pain x 50% to aid with sleep Goal Time Frame: 6-8 Weeks Goal Progress: Progressing Goal 2:: Increase R LE strength knee flex and knee ext to equal 90% strength of L LE Goal Time Frame: 6-8 Weeks Goal Progress: Progressing Goal 3:: Increase R knee extension ROM x 5-8 degrees to aid with decreasing pain. Goal Time Frame: 6-8 Weeks Goal Progress: Progressing Goal 4:: Perform TUG in under 10 seconds to aid with community mobility Goal Time Frame: 6-8 Weeks Goal Progress: Progressing Goal 5:: I with HEP Goal Time Frame: 6-8 Weeks Goal Progress: Progressing Anticipated Interventions Anticipated Interventions Patient/Client Instruction: Educate patient on: Condition and Plan of Care For the Purpose of:: To improve self management Therapeutic Exercise to Include: Strength training, Endurance training, Balance training, Flexibilty training, Passive ROM, Active ROM and Dynamic Lumbar Stabilization For the Purpose of:: To decrease pain, To increase ROM and To improve muscle performance and motor function Cryotherapy (ice pack, ice massage): Yes For the Purpose of:: To decrease pain Re-Evaluation Ending Re-evaluation ending: Please do not hesitate to contact me at [phone] by phone or if you have questions or concerns regarding this new plan of care! Sincerely, Bebeto Medley, PT, ATC
--- NOTE | 2024-06-23 13:02 | HP.PTREVAL ---
Re-Evaluation Intro: MAYKLE Mcneil, It has been my pleasure to treat GLORIA DURHAM over the last 19 visits for R hamstring repair 03/31/24. Please see the progress note below for an update on the physical therapy plan of care! Subjective Subjective: R hamstring pain is getting better, but still gets really sore Objective Objective/Function: R hamstring pain ranges from 0-9/10 TUG 11.27 sec R knee MMT: flex= 25, ext= 22 #F R knee ROM: 0-5-145 degrees Pt is progressing well with all aspects of PT except for pain. Plan Plan Plan: 06/23/24- Continue to progress per protocol Balance/Gait/Functional tests Balance/Special Test Scores Lower Extremity Functional Score: 32 Goals Goals Goal 1:: Decrease R hamstring pain x 50% to aid with sleep Goal Time Frame: 6-8 Weeks Goal Progress: Progressing Goal 2:: Increase R LE strength knee flex and knee ext to equal 90% strength of L LE Goal Time Frame: 6-8 Weeks Goal Progress: Progressing Goal 3:: Increase R knee extension ROM x 5-8 degrees to aid with decreasing pain. Goal Time Frame: 6-8 Weeks Goal Progress: Progressing Goal 4:: Perform TUG in under 10 seconds to aid with community mobility Goal Time Frame: 6-8 Weeks Goal Progress: Progressing Goal 5:: I with HEP Goal Time Frame: 6-8 Weeks Goal Progress: Progressing Anticipated Interventions Anticipated Interventions Patient/Client Instruction: Educate patient on: Condition and Plan of Care For the Purpose of:: To improve self management Therapeutic Exercise to Include: Strength training, Endurance training, Balance training, Flexibilty training, Passive ROM, Active ROM and Dynamic Lumbar Stabilization For the Purpose of:: To decrease pain, To increase ROM and To improve muscle performance and motor function Cryotherapy (ice pack, ice massage): Yes For the Purpose of:: To decrease pain Re-Evaluation Ending Re-evaluation ending: Please do not hesitate to contact me at [phone] by phone or if you have questions or concerns regarding this new plan of care! Sincerely, Bebeto Medley, PT, ATC
--- NOTE | 2024-07-29 11:02 | HP.PTREVAL ---
Re-Evaluation Intro: MAYKEL Mcneil, It has been my pleasure to treat GLORIA DURHAM over the last 26 visits for R hamstring repair 03/31/24. Please see the progress note below for an update on the physical therapy plan of care! Subjective Subjective: Pt reports she has very little pain at this time Objective Objective/Function: R HS pain ranges from 1-6/10 B knee extension ROM 0 degrees R knee MMT: flex= 31 (L= 31), ext= 33 (L= 43) #F TUG 7 sec Plan Plan Plan: Cont or discharge in 1 month Balance/Gait/Functional tests Balance/Special Test Scores Lower Extremity Functional Score: 49 Goals Goals Goal 1:: Decrease R hamstring pain x 50% to aid with sleep Goal Time Frame: 6-8 Weeks Goal Progress: Progressing Goal 2:: Increase R LE strength knee flex and knee ext to equal 90% strength of L LE Goal Time Frame: 6-8 Weeks Goal Progress: Progressing Goal 3:: Increase R knee extension ROM x 5-8 degrees to aid with decreasing pain. Goal Time Frame: 6-8 Weeks Goal Progress: Goal Met Goal 4:: Perform TUG in under 10 seconds to aid with community mobility Goal Time Frame: 6-8 Weeks Goal Progress: Goal Met Goal 5:: I with HEP Goal Time Frame: 6-8 Weeks Goal Progress: Goal Met Anticipated Interventions Anticipated Interventions Patient/Client Instruction: Educate patient on: Condition and Plan of Care For the Purpose of:: To improve self management Therapeutic Exercise to Include: Strength training, Endurance training, Balance training, Flexibilty training, Passive ROM, Active ROM and Dynamic Lumbar Stabilization For the Purpose of:: To decrease pain, To increase ROM and To improve muscle performance and motor function Cryotherapy (ice pack, ice massage): Yes For the Purpose of:: To decrease pain Re-Evaluation Ending Re-evaluation ending: Please do not hesitate to contact me at [phone] by phone or if you have questions or concerns regarding this new plan of care! Sincerely, Bebeto Medley, PT, ATC
--- NOTE | 2024-07-29 11:02 | HP.PT.NRP ---
Patient Information Patient Information: GLORIA DURHAM was seen in my office for initial evaluation on 04/18/24. The following Plan of Care was established for this patient: POC Established Initial Frequency: 2x /Week Initial Duration: 6-8 weeks Anticipated Interventions Patient/Client Instruction: Educate patient on: Condition and Plan of Care For the Purpose of:: To improve self management Therapeutic Exercise to Include: Strength training, Endurance training, Balance training, Flexibilty training, Passive ROM, Active ROM and Dynamic Lumbar Stabilization For the Purpose of:: To decrease pain, To increase ROM and To improve muscle performance and motor function Cryotherapy (ice pack, ice massage): Yes For the Purpose of:: To decrease pain Last Seen Last Seen: This patient was last seen in our office . Pertinent comments regarding their Physical therapy will appear below: At this point I will be discontinuing this patient from physical therapy. I would be happy to see this patient again in the future if found appropriate by the physician. Thank you! Bebeto Medley, PT, ATC Balance/Gait/Functional tests Balance/Special Test Scores Lower Extremity Functional Score: 49
--- NOTE | 2024-07-29 12:00 | HP.PTREVAL ---
Re-Evaluation Intro: MAYKEL Mcneil, It has been my pleasure to treat GLORIA DURHAM over the last 26 visits for R hamstring repair 03/31/24. Please see the progress note below for an update on the physical therapy plan of care! Subjective Subjective: Pt reports she has very little pain at this time Objective Objective/Function: R HS pain ranges from 1-6/10 B knee extension ROM 0 degrees R knee MMT: flex= 31 (L= 31), ext= 33 (L= 43) #F TUG 7 sec Plan Plan Plan: Cont or discharge in 1 month Balance/Gait/Functional tests Balance/Special Test Scores Lower Extremity Functional Score: 49 Goals Goals Goal 1:: Decrease R hamstring pain x 50% to aid with sleep Goal Time Frame: 6-8 Weeks Goal Progress: Progressing Goal 2:: Increase R LE strength knee flex and knee ext to equal 90% strength of L LE Goal Time Frame: 6-8 Weeks Goal Progress: Progressing Goal 3:: Increase R knee extension ROM x 5-8 degrees to aid with decreasing pain. Goal Time Frame: 6-8 Weeks Goal Progress: Goal Met Goal 4:: Perform TUG in under 10 seconds to aid with community mobility Goal Time Frame: 6-8 Weeks Goal Progress: Goal Met Goal 5:: I with HEP Goal Time Frame: 6-8 Weeks Goal Progress: Goal Met Anticipated Interventions Anticipated Interventions Patient/Client Instruction: Educate patient on: Condition and Plan of Care For the Purpose of:: To improve self management Therapeutic Exercise to Include: Strength training, Endurance training, Balance training, Flexibilty training, Passive ROM, Active ROM and Dynamic Lumbar Stabilization For the Purpose of:: To decrease pain, To increase ROM and To improve muscle performance and motor function Cryotherapy (ice pack, ice massage): Yes For the Purpose of:: To decrease pain Re-Evaluation Ending Re-evaluation ending: Please do not hesitate to contact me at [phone] by phone or if you have questions or concerns regarding this new plan of care! Sincerely, Bebeto Medley, PT, ATC
--- NOTE | 2024-08-26 10:42 | HP.PTDCSUM ---
Discharge Summary D/C summary: It has been my pleasure to treat GLORIA DURHAM referred by MAYKEL Mcneil, with the diagnosis of R hamstring repair 03/31/24 for a total of 27 visit(s). Discharge Date: Please see the following information for a summary of their discharge status. Subjective Subjective: I think I am ready to continue I Pain R hamstring: Pain Intensity (Out of 10): 0 Overall Improvement % Improvement: 85 Objective Objective/Function: R hamstring pain ranges from 0-9/10 MMT: R knee flex= 31 (L=27), ext= 43 (L= 43) Pt is I with HEP and gym routine All goals but pain have been achieved Goals Goal 1:: Decrease R hamstring pain x 50% to aid with sleep Goal Progress: Progressing Goal 2:: Increase R LE strength knee flex and knee ext to equal 90% strength of L LE Goal Progress: Goal Met Goal 3:: Increase R knee extension ROM x 5-8 degrees to aid with decreasing pain. Goal Progress: Goal Met Goal 4:: Perform TUG in under 10 seconds to aid with community mobility Goal Progress: Goal Met Goal 5:: I with HEP Goal Progress: Goal Met Plan Plan: Discharge to I gym routine D/C Information d/c sentence: If there are questions or concerns regarding this patient's physical therapy, please feel free to call me at [phone]. Thank you for the referral of this patient. Sincerely, Bebeto Medley, PT, ATC Balance/Gait/Functional tests Balance/Special Test Scores Lower Extremity Functional Score: 49 Improvement % Improvement: 85
== END 2024-08-26 19:00 | disposition home or self-care (01) ==
LOC: PT 10:00
PROVIDERS: PCP Family Medicine; Referring Provider Physician Assistant; Visit Provider Physician Assistant
DX: S76.311D Strain of muscle, fascia and tendon of the posterior muscle group at thigh level, right thigh, subsequent encounter (principal)
CPT/HCPCS: 97110; 97161; 97530

== ENCOUNTER → 2024-12-15 | Outpatient (CLI) | payer MEDICARE, SELFPAY ==
[2024-12-15 11:09] LABS: Hematocrit 46.0 % (37-47); Hemoglobin 15.6 g/dL (12.0-15.0); Immature Granulocytes Count 0.060 X10^3/uL (0.0-0.0); Mean Corp Hgb Conc 33.9 g/dL (32-36); Mean Corpuscular Volume 92.7 fL (81-99); Mean Platelet Vol. 11.1 fl (6.2-12.0); NRBC Flagged by Analyzer 0 % (0-5); Platelet Count 311 K/mm3 (150-450); RBC Distribution Width CV 12.8 % (11.6-14.6); RBC Distribution Width SD 43.4 fl (35.1-43.9); Red Blood Count 4.96 M/mm3 (4.2-5.4); White Blood Count 11.4 K/mm3 (4.4-11.0)
[2024-12-15 12:21] LABS: AST(SGOT) 24 U/L (<=31); Alanine Aminotransfer ALT/SGPT 17 U/L (<=34); Albumin, Serum 4.5 g/dL (3.4-4.8); Alkaline Phosphatase 89 U/L (35-104); Anion Gap 11 (5-15); BUN 16 mg/dL (4-19); BUN/Creat Ratio 17.7 RATIO (10-20); Calcium,Total 9.5 mg/dL (7.6-11.0); Carbon Dioxide 24.1 mmol/L (21.0-32.0); Chloride 106 mmol/L (98-108); Globulin 2.2 g/dL (2.2-4.2); Glucose 96 mg/dL (70-99); Potassium 5.4 mmol/L (3.3-5.1)
== END | disposition home or self-care (01) ==
LOC: LAB 10:23
PROVIDERS: Referring Provider Internal Medicine Rheumatology; Visit Provider Internal Medicine Rheumatology
DX: M06.4 Inflammatory polyarthropathy (principal); M79.7 Fibromyalgia; K76.0 Fatty (change of) liver, not elsewhere classified; Z79.899 Other long term (current) drug therapy
CPT/HCPCS: 36415; 80053; 85025

== ENCOUNTER → 2025-02-28 | Outpatient (CLI) | payer MEDICARE, SELFPAY ==
[2025-02-28 13:24] LABS: Differential Indicated SCAN CRITERIA MET; Hematocrit 41.9 % (37-47); Hemoglobin 14.1 g/dL (12.0-15.0); Immature Granulocytes Count 0.040 X10^3/uL (0.0-0.0); Mean Corp Hgb Conc 33.7 g/dL (32-36); Mean Corpuscular Volume 93.1 fL (81-99); Mean Platelet Vol. 10.8 fl (6.2-12.0); NRBC Flagged by Analyzer 0 % (0-5); POSITIVE DIFFERENTIAL YES; Platelet Count 274 K/mm3 (150-450); RBC Distribution Width CV 12.4 % (11.6-14.6); RBC Distribution Width SD 42.5 fl (35.1-43.9); Red Blood Count 4.50 M/mm3 (4.2-5.4); White Blood Count 11.3 K/mm3 (4.4-11.0)
[2025-02-28 14:00] LABS: AST(SGOT) 28 U/L (<=31); Alanine Aminotransfer ALT/SGPT 17 U/L (<=34); Albumin, Serum 4.2 g/dL (3.4-4.8); Alkaline Phosphatase 95 U/L (35-104); Anion Gap 10 (7-18); BUN 14 mg/dL (4-19); BUN/Creat Ratio 15.9 RATIO (10-20); Calcium,Total 9.1 mg/dL (7.6-11.0); Carbon Dioxide 24.0 mmol/L (20.0-29.0); Chloride 107 mmol/L (96-106); Globulin 2.2 g/dL (2.2-4.2); Glucose 87 mg/dL (70-99); Potassium 4.6 mmol/L (3.5-5.1)
== END | disposition home or self-care (01) ==
LOC: LAB 12:55
PROVIDERS: Referring Provider Internal Medicine Rheumatology; Visit Provider Internal Medicine Rheumatology
DX: M06.4 Inflammatory polyarthropathy (principal); Z79.899 Other long term (current) drug therapy
CPT/HCPCS: 36415; 80053; 85025